=== PATIENT | male | born 1965 | race Caucasian/White ===

== ENCOUNTER → 2017-03-04 | Outpatient (CLI) | payer BC, MEDICARE, OTHER ==
[~2017-03-04] MED LIST: ACEDIPPM PO; AMPDEX15CR PO; AMPDEX5 PO; ARIP10; ARIP20 PO; ARIP30 PO; ASPI325 PO; ASPI81CH PO; BRINTELLIX20 MG; BRINTELLIX20 MG PO; BUSP15 PO; CIME400 PO; CITA20 PO; CLIN300 PO; CLON1 PO; CYCL10 PO; DAYQUIL; DICL25ER PO; DOXE10 PO; HYDACE5 PO; HYDPAM25; IBUP800 PO; IBUPROFEN; KETO10 PO; LACT10SY PO; LIDO700A20 TOP; METHYLPHENIDATE20 M1; METHYLPHENIDATE20 M1 PO; MULVITMIND PO; NAPR220 PO; Naprosyn500 MG PO; OMEP40CA12 PO; ONDA4 PO; OXYC5 PO; PRAZ2 PO; PROM25 PO; PROP10 PO; Pepcid40 MG PO; RIFA550T2; RIFA550T2 PO; RXCYCL10 PO; RXHYDACE PO; SUCR1 PO; Seroquel400 MG PO; TEMA15 PO; TOPI100 PO; TRAM50 PO; TRAZ100; TRAZ100 PO; Venlafaxine HCl75 MG PO; Zofran Odt4 MG SL; [UNRECOGNIZED DRUG - OTHER] PO; [UNRECOGNIZED DRUG - REMARK]
== END | disposition home or self-care (01) ==
LOC: LAB 14:21
PROVIDERS: Physician Assistant
DX: R19.7 Diarrhea, unspecified (principal)
CPT/HCPCS: 87015; 87045; 87046; 87177; 87205; 87209; 87328; 87329; 87899

== ENCOUNTER 2017-03-11 15:00 | Emergency (ER) | payer BC, MEDICARE, OTHER ==
[~2017-03-11] VITALS: Ht 188 cm; Wt 108.9 kg
[~2017-03-11 15:00] MED LIST changes: -AMPDEX15CR PO; -ARIP20 PO; -BRINTELLIX20 MG; -LIDO700A20 TOP; -Naprosyn500 MG PO; -PROP10 PO; -TRAZ100 PO; -Venlafaxine HCl75 MG PO; -[UNRECOGNIZED DRUG - OTHER] PO
[2017-03-11 15:33] LABS: BASOPHILS ABSOLUTE AUTO 0.03 K/mm3 (0.00-0.23); BASOPHILS PERCENT AUTO 0 % (0-2); EOSINOPHILS ABSOLUTE AUTO 0.03 K/mm3 (0.00-0.68); EOSINOPHILS PERCENT AUTO 0 % (0-6); Hematocrit 46.2 % (37.0-53.0); Hemoglobin 15.6 g/dL (13.5-17.5); IMMATURE GRAN ABSOLUTE AUTO 0.07 K/mm3 (0.00-0.10); IMMATURE GRAN PERCENT AUTO 1 % (0-1); LYMPHOCYTES ABSOLUTE AUTO 2.72 K/mm3 (0.84-5.20); LYMPHOCYTES PERCENT AUTO 24 % (21-46); MONOCYTES ABSOLUTE AUTO 0.48 K/mm3 (0.16-1.47); MONOCYTES PERCENT AUTO 4 % (4-13); Mean Corpuscular HGB 27.7 pg (26.0-34.0); Mean Corpuscular HGB Conc 33.8 g/dL (31.5-36.5); Mean Corpuscular Volume 82 fL (80-100); Mean Platelet Volume 9.1 fL (9.1-12.4); NEUTROPHILS ABSOLUTE AUTO 8.13 K/mm3 (1.96-9.15); NEUTROPHILS PERCENT AUTO 71 % (41-73); Platelet Count 271 K/mm3 (150-400); RDW Standard Deviation 41.6 fL (35.1-46.3); Red Blood Cell Count 5.63 M/mm3 (4.30-5.90); White Blood Cell Count 11.46 K/mm3 (4.00-11.30)
[2017-03-11 15:53] LABS: Alanine Aminotransfer (ALT/SGP 85 U/L (12-78); Albumin, Blood 3.7 g/dL (3.4-5.0); Albumin/Globulin Ratio 0.9 (0.8-1.8); Alk Phos 126 U/L (50-136); Anion Gap 9 mmol/L (6-16); Aspartate Aminotrans (AST/SGOT 29 U/L (12-37); Bilirubin, Total 0.3 mg/dL (0.1-1.0); Blood Urea Nitrogen 10 mg/dL (8-24); Bun/Creatinine Ratio 15.3 (12.0-20.0); CO2, Blood 24 mmol/L (21-32); Calcium, Blood 8.3 mg/dL (8.5-10.1); Chloride, Blood 105 mmol/L (98-108); Creatinine, Blood 0.66 mg/dL (0.60-1.20); Globulin, Blood 4.2 g/dL (2.2-4.0); Glomerular Filtration Rate >60 (60-); Glucose, Blood 233 mg/dL (70-99); Potassium, Blood 3.3 mmol/L (3.5-5.5); Sodium, Blood 138 mmol/L (136-145); Total Protein, Blood 7.9 g/dL (6.4-8.2); Troponin I <0.015 ng/mL (0.000-0.040)
[2017-12-11] MEDS ORDERED: ARIP20 PO (10:53)
[2017-12-11] MEDS ORDERED: TRAZ100 PO (10:54)
[2018-02-05] MEDS ORDERED: AMPDEX15CR PO (13:47)
[2018-02-05] MEDS ORDERED: BRINTELLIX20 MG PO (13:47)
[2018-02-05] MEDS ORDERED: RIFA550T2 PO (13:48)
[2018-02-05] MEDS ORDERED: [UNRECOGNIZED DRUG - OTHER] PO (13:50)
== END 2017-03-11 17:18 | disposition home or self-care (01) ==
LOC: ER 15:00
PROVIDERS: Psychiatry & Neurology Psychiatry
DX: R07.89 Other chest pain (principal); K21.9 Gastro-esophageal reflux disease without esophagitis; F41.8 Other specified anxiety disorders; Z79.899 Other long term (current) drug therapy; Z86.19 Personal history of other infectious and parasitic diseases
CPT/HCPCS: 36415; 71046; 80053; 84484; 85025; 93005; 93010; 99284

== ENCOUNTER 2017-03-26 16:32 | Inpatient (IN) | payer BC, MEDICARE, OTHER ==
[~2017-03-26] VITALS: Ht 188 cm; Wt 108.4 kg
[2017-03-26 17:15] LABS: BASOPHILS ABSOLUTE AUTO 0.09 K/mm3 (0.00-0.23); BASOPHILS PERCENT AUTO 1 % (0-2); EOSINOPHILS ABSOLUTE AUTO 0.13 K/mm3 (0.00-0.68); EOSINOPHILS PERCENT AUTO 1 % (0-6); Hematocrit 50.8 % (37.0-53.0); Hemoglobin 16.5 g/dL (13.5-17.5); IMMATURE GRAN ABSOLUTE AUTO 0.05 K/mm3 (0.00-0.10); IMMATURE GRAN PERCENT AUTO 1 % (0-1); LYMPHOCYTES ABSOLUTE AUTO 2.74 K/mm3 (0.84-5.20); LYMPHOCYTES PERCENT AUTO 30 % (21-46); MONOCYTES ABSOLUTE AUTO 0.65 K/mm3 (0.16-1.47); MONOCYTES PERCENT AUTO 7 % (4-13); Mean Corpuscular HGB 27.3 pg (26.0-34.0); Mean Corpuscular HGB Conc 32.5 g/dL (31.5-36.5); Mean Corpuscular Volume 84 fL (80-100); Mean Platelet Volume 8.5 fL (9.1-12.4); NEUTROPHILS ABSOLUTE AUTO 5.63 K/mm3 (1.96-9.15); NEUTROPHILS PERCENT AUTO 61 % (41-73); Platelet Count 342 K/mm3 (150-400); RDW Coefficient Variation 13.9 % (11.7-14.2); RDW Standard Deviation 42.7 fL (35.1-46.3); Red Blood Cell Count 6.04 M/mm3 (4.30-5.90); White Blood Cell Count 9.29 K/mm3 (4.00-11.30)
[2017-03-26 17:38] LABS: Alanine Aminotransfer (ALT/SGP 64 U/L (12-78); Albumin, Blood 3.9 g/dL (3.4-5.0); Albumin/Globulin Ratio 0.9 (0.8-1.8); Alk Phos 141 U/L (50-136); Anion Gap 8 mmol/L (6-16); Aspartate Aminotrans (AST/SGOT 17 U/L (12-37); Bilirubin, Total 0.2 mg/dL (0.1-1.0); Blood Urea Nitrogen 8 mg/dL (8-24); Bun/Creatinine Ratio 9.5 (12.0-20.0); CO2, Blood 25 mmol/L (21-32); Chloride, Blood 109 mmol/L (98-108); Creatinine, Blood 0.84 mg/dL (0.60-1.20); Ethanol (Alcohol), Blood, Med 239 mg/dL; Globulin, Blood 4.3 g/dL (2.2-4.0); Glomerular Filtration Rate >60 (60-); Glucose, Blood 250 mg/dL (70-99); Potassium, Blood 3.6 mmol/L (3.5-5.5); Salicylate <1.7 mg/dL (2.8-20.0); Sodium, Blood 142 mmol/L (136-145); Thyroxine (T4) 9.1 ug/dL (4.5-12.1); Total Protein, Blood 8.2 g/dL (6.4-8.2)
[2017-03-26 17:42] LABS: Thyroid Stimulating Hormone 0.907 uIU/mL (0.360-4.800)
[2017-03-26 17:43] LABS: Acetaminophen, Random <2.0 ug/mL (10.0-30.0)
[2017-03-26 17:44] LABS: Source, Urine Clean Catch
[2017-03-26 17:52] LABS: Bilirubin, Urine Neg (Neg); Blood, Urine Neg (Neg); Glucose Qualitative, Urine 2+ (Neg); Ketones, Urine Neg (Neg); Leukocyte Esterase, Urine Neg (Neg); Nitrite, Urine Neg (Neg); Protein, Urine Neg (Neg); Specific Gravity, Urine 1.005 (1.003-1.022); Urobilinogen, Urine NORM (Normal); pH, Urine 6.5 (5.0-8.0)
[2017-03-26 18:03] LABS: Appearance, Urine Clear (Clear); Color, Urine No Color (P-Yellow)
[2017-03-26 18:17] LABS: U Amphetamine Screen Not Detected; U Barbituate Screen Not Detected; U Benzodiazapine Screen Not Detected; U Buprenorphine Screen Not Detected; U Cannabinoids Screen Not Detected; U Cocaine Screen Not Detected; U Methadone Screen Not Detected; U Methamphetamine Screen Not Detected; U Opiates Screen Not Detected; U Oxycodone Screen Not Detected; U Phencyclidine Screen Not Detected; U Propoxyphene Screen Not Detected
[2017-03-27 04:02] LABS: BASOPHILS ABSOLUTE AUTO 0.07 K/mm3 (0.00-0.23); BASOPHILS PERCENT AUTO 1 % (0-2); EOSINOPHILS ABSOLUTE AUTO 0.09 K/mm3 (0.00-0.68); EOSINOPHILS PERCENT AUTO 1 % (0-6); Hematocrit 46.2 % (37.0-53.0); Hemoglobin 15.1 g/dL (13.5-17.5); IMMATURE GRAN ABSOLUTE AUTO 0.06 K/mm3 (0.00-0.10); IMMATURE GRAN PERCENT AUTO 1 % (0-1); LYMPHOCYTES ABSOLUTE AUTO 2.31 K/mm3 (0.84-5.20); LYMPHOCYTES PERCENT AUTO 21 % (21-46); MONOCYTES ABSOLUTE AUTO 0.46 K/mm3 (0.16-1.47); MONOCYTES PERCENT AUTO 4 % (4-13); Mean Corpuscular HGB 27.5 pg (26.0-34.0); Mean Corpuscular HGB Conc 32.7 g/dL (31.5-36.5); Mean Corpuscular Volume 84 fL (80-100); Mean Platelet Volume 8.8 fL (9.1-12.4); NEUTROPHILS ABSOLUTE AUTO 8.04 K/mm3 (1.96-9.15); NEUTROPHILS PERCENT AUTO 73 % (41-73); Platelet Count 316 K/mm3 (150-400); RDW Coefficient Variation 13.8 % (11.7-14.2); RDW Standard Deviation 42.5 fL (35.1-46.3); White Blood Cell Count 11.03 K/mm3 (4.00-11.30)
[2017-03-27 04:16] LABS: International Normalized Ratio 1.06
[2017-03-27 04:24] LABS: Alanine Aminotransfer (ALT/SGP 51 U/L (12-78); Albumin, Blood 3.4 g/dL (3.4-5.0); Albumin/Globulin Ratio 0.9 (0.8-1.8); Alk Phos 122 U/L (50-136); Anion Gap 9 mmol/L (6-16); Aspartate Aminotrans (AST/SGOT 15 U/L (12-37); Bilirubin, Total 0.2 mg/dL (0.1-1.0); Blood Urea Nitrogen 6 mg/dL (8-24); Bun/Creatinine Ratio 7.6 (12.0-20.0); CO2, Blood 24 mmol/L (21-32); Calcium, Blood 8.3 mg/dL (8.5-10.1); Chloride, Blood 113 mmol/L (98-108); Creatinine, Blood 0.79 mg/dL (0.60-1.20); Globulin, Blood 3.7 g/dL (2.2-4.0); Glomerular Filtration Rate >60 (60-); Glucose, Blood 83 mg/dL (70-99); Potassium, Blood 3.8 mmol/L (3.5-5.5); Sodium, Blood 146 mmol/L (136-145); Total Protein, Blood 7.1 g/dL (6.4-8.2)
[2017-12-11] MEDS ORDERED: ARIP20 PO (10:53)
[2017-12-11] MEDS ORDERED: TRAZ100 PO (10:54)
[2018-02-05] MEDS ORDERED: BRINTELLIX20 MG PO (13:47)
[2018-02-05] MEDS ORDERED: AMPDEX15CR PO (13:47)
[2018-02-05] MEDS ORDERED: RIFA550T2 PO (13:48)
[2018-02-05] MEDS ORDERED: [UNRECOGNIZED DRUG - OTHER] PO (13:50)
== END 2017-03-28 22:00 | DRG 918 ==
LOC: ER 16:32 → ICUW 18:33
PROVIDERS: Emergency Medicine; Internal Medicine
DX: T45.0X2A Poisoning by antiallergic and antiemetic drugs, intentional self-harm, initial encounter (principal); F31.5 Bipolar disorder, current episode depressed, severe, with psychotic features; K74.60 Unspecified cirrhosis of liver; F40.10 Social phobia, unspecified; K21.9 Gastro-esophageal reflux disease without esophagitis; R33.9 Retention of urine, unspecified; K27.9 Peptic ulcer, site unspecified, unspecified as acute or chronic, without hemorrhage or perforation; B19.20 Unspecified viral hepatitis C without hepatic coma; Z91.5 Personal history of self-harm; Z79.899 Other long term (current) drug therapy
CPT/HCPCS: 36415; 80053; 81003; 84436; 84443; 85025; 85610; 93005; 93010; 96372; 99285; C9113; G0480; J1650; J2405; J3411; J7030; J7120

== ENCOUNTER 2017-07-12 18:26 | Observation (INO) | payer MEDICARE, OTHER ==
[~2017-07-12] VITALS: Ht 188 cm; Wt 113.4 kg
[2017-07-12 19:15] LABS: BASOPHILS ABSOLUTE AUTO 0.08 K/mm3 (0.00-0.23); BASOPHILS PERCENT AUTO 1 % (0-2); EOSINOPHILS ABSOLUTE AUTO 0.15 K/mm3 (0.00-0.68); EOSINOPHILS PERCENT AUTO 2 % (0-6); Hematocrit 45.6 % (37.0-53.0); Hemoglobin 15.3 g/dL (13.5-17.5); IMMATURE GRAN ABSOLUTE AUTO 0.04 K/mm3 (0.00-0.10); IMMATURE GRAN PERCENT AUTO 0 % (0-1); LYMPHOCYTES ABSOLUTE AUTO 3.27 K/mm3 (0.84-5.20); LYMPHOCYTES PERCENT AUTO 33 % (21-46); MONOCYTES ABSOLUTE AUTO 0.64 K/mm3 (0.16-1.47); MONOCYTES PERCENT AUTO 7 % (4-13); Mean Corpuscular HGB 27.9 pg (26.0-34.0); Mean Corpuscular HGB Conc 33.6 g/dL (31.5-36.5); Mean Corpuscular Volume 83 fL (80-100); Mean Platelet Volume 9.1 fL (9.1-12.4); NEUTROPHILS PERCENT AUTO 58 % (41-73); Platelet Count 278 K/mm3 (150-400); RDW Coefficient Variation 13.6 % (11.7-14.2); RDW Standard Deviation 41.5 fL (35.1-46.3); Red Blood Cell Count 5.48 M/mm3 (4.30-5.90); White Blood Cell Count 9.88 K/mm3 (4.00-11.30)
[2017-07-12 19:36] LABS: Alanine Aminotransfer (ALT/SGP 61 U/L (12-78); Albumin, Blood 3.8 g/dL (3.4-5.0); Alk Phos 104 U/L (50-136); Anion Gap 13 mmol/L (6-16); Aspartate Aminotrans (AST/SGOT 27 U/L (12-37); Bilirubin, Total 0.3 mg/dL (0.1-1.0); Blood Urea Nitrogen 8 mg/dL (8-24); Bun/Creatinine Ratio 10.4 (12.0-20.0); CO2, Blood 21 mmol/L (21-32); Calcium, Blood 8.7 mg/dL (8.5-10.1); Chloride, Blood 106 mmol/L (98-108); Creatinine, Blood 0.77 mg/dL (0.60-1.20); Ethanol (Alcohol), Blood, Med 202 mg/dL; Globulin, Blood 3.7 g/dL (2.2-4.0); Glomerular Filtration Rate >60 (60-); Glucose, Blood 163 mg/dL (70-99); Potassium, Blood 3.7 mmol/L (3.5-5.5); Salicylate <1.7 mg/dL (2.8-20.0); Sodium, Blood 140 mmol/L (136-145); Total Protein, Blood 7.5 g/dL (6.4-8.2)
[2017-07-12 19:41] LABS: Acetaminophen, Random <2.0 ug/mL (10.0-30.0)
[2017-07-12 19:44] LABS: Source, Urine Voided
[2017-07-12 19:54] LABS: Bilirubin, Urine Neg (Neg); Blood, Urine Neg (Neg); Glucose Qualitative, Urine Neg (Neg); Ketones, Urine Neg (Neg); Leukocyte Esterase, Urine Neg (Neg); Nitrite, Urine Neg (Neg); Protein, Urine Neg (Neg); Specific Gravity, Urine 1.015 (1.003-1.022); Urobilinogen, Urine NORM (Normal)
[2017-07-12 20:08] LABS: U Amphetamine Screen Not Detected; U Barbituate Screen Not Detected; U Benzodiazapine Screen Not Detected; U Buprenorphine Screen Not Detected; U Cannabinoids Screen Not Detected; U Cocaine Screen Not Detected; U Methadone Screen Not Detected; U Methamphetamine Screen Not Detected; U Opiates Screen Not Detected; U Oxycodone Screen Not Detected; U Phencyclidine Screen Not Detected; U Propoxyphene Screen Not Detected
[2017-07-12 20:09] LABS: Appearance, Urine Clear (Clear); Color, Urine Pale Yellow (P-Yellow)
== END 2017-07-13 15:34 | disposition home or self-care (01) ==
LOC: ER 18:26 → EOR 18:27
PROVIDERS: Emergency Medicine
DX: R45.851 Suicidal ideations (principal); F32.9 Major depressive disorder, single episode, unspecified; K86.89 Other specified diseases of pancreas; K21.9 Gastro-esophageal reflux disease without esophagitis; K74.60 Unspecified cirrhosis of liver; Z79.899 Other long term (current) drug therapy
CPT/HCPCS: 80053; 81003; 84443; 85025; 99285; G0378; G0480; Q3014

== ENCOUNTER 2017-07-15 20:14 | Observation (INO) | payer MEDICARE, OTHER ==
[~2017-07-15] VITALS: Ht 188 cm; Wt 113.4 kg
[2017-07-15 21:05] LABS: BASOPHILS ABSOLUTE AUTO 0.11 K/mm3 (0.00-0.23); BASOPHILS PERCENT AUTO 1 % (0-2); EOSINOPHILS ABSOLUTE AUTO 0.27 K/mm3 (0.00-0.68); EOSINOPHILS PERCENT AUTO 3 % (0-6); Hematocrit 47.2 % (37.0-53.0); Hemoglobin 15.6 g/dL (13.5-17.5); IMMATURE GRAN ABSOLUTE AUTO 0.05 K/mm3 (0.00-0.10); IMMATURE GRAN PERCENT AUTO 1 % (0-1); LYMPHOCYTES ABSOLUTE AUTO 3.63 K/mm3 (0.84-5.20); LYMPHOCYTES PERCENT AUTO 39 % (21-46); MONOCYTES ABSOLUTE AUTO 0.67 K/mm3 (0.16-1.47); MONOCYTES PERCENT AUTO 7 % (4-13); Mean Corpuscular HGB 27.6 pg (26.0-34.0); Mean Corpuscular HGB Conc 33.1 g/dL (31.5-36.5); Mean Corpuscular Volume 84 fL (80-100); Mean Platelet Volume 9.1 fL (9.1-12.4); NEUTROPHILS ABSOLUTE AUTO 4.61 K/mm3 (1.96-9.15); NEUTROPHILS PERCENT AUTO 49 % (41-73); Platelet Count 280 K/mm3 (150-400); RDW Coefficient Variation 13.7 % (11.7-14.2); RDW Standard Deviation 41.6 fL (35.1-46.3); Red Blood Cell Count 5.65 M/mm3 (4.30-5.90); White Blood Cell Count 9.34 K/mm3 (4.00-11.30)
[2017-07-15 21:05] LABS: Source, Urine Clean Catch
[2017-07-15 21:08] LABS: Bilirubin, Urine Neg (Neg); Blood, Urine Neg (Neg); Glucose Qualitative, Urine Neg (Neg); Ketones, Urine Neg (Neg); Leukocyte Esterase, Urine Neg (Neg); Nitrite, Urine Neg (Neg); Protein, Urine Neg (Neg); Urobilinogen, Urine NORM (Normal)
[2017-07-15 21:14] LABS: Appearance, Urine Clear (Clear); Color, Urine Pale Yellow (P-Yellow)
[2017-07-15 21:24] LABS: U Amphetamine Screen Not Detected; U Barbituate Screen Not Detected; U Benzodiazapine Screen Not Detected; U Buprenorphine Screen Not Detected; U Cannabinoids Screen Not Detected; U Cocaine Screen Not Detected; U Methadone Screen Not Detected; U Methamphetamine Screen Not Detected; U Opiates Screen Not Detected; U Oxycodone Screen Not Detected; U Phencyclidine Screen Not Detected; U Propoxyphene Screen Not Detected
[2017-07-15 21:28] LABS: Alanine Aminotransfer (ALT/SGP 52 U/L (12-78); Albumin, Blood 3.6 g/dL (3.4-5.0); Albumin/Globulin Ratio 0.9 (0.8-1.8); Alk Phos 105 U/L (50-136); Anion Gap 9 mmol/L (6-16); Aspartate Aminotrans (AST/SGOT 26 U/L (12-37); Bilirubin, Total 0.1 mg/dL (0.1-1.0); Blood Urea Nitrogen 6 mg/dL (8-24); Bun/Creatinine Ratio 9.1 (12.0-20.0); CO2, Blood 23 mmol/L (21-32); Calcium, Blood 8.3 mg/dL (8.5-10.1); Chloride, Blood 113 mmol/L (98-108); Creatinine, Blood 0.66 mg/dL (0.60-1.20); Ethanol (Alcohol), Blood, Med 222 mg/dL; Globulin, Blood 3.9 g/dL (2.2-4.0); Glomerular Filtration Rate >60 (60-); Glucose, Blood 96 mg/dL (70-99); Salicylate <1.7 mg/dL (2.8-20.0); Sodium, Blood 145 mmol/L (136-145); Total Protein, Blood 7.5 g/dL (6.4-8.2)
[2017-07-15 21:33] LABS: Acetaminophen, Random <2.0 ug/mL (10.0-30.0)
[2017-07-16] MEDS ORDERED: Venlafaxine HCl75 MG PO (06:40)
[2017-07-16] MEDS ORDERED: PROP10 PO (07:02)
== END 2017-07-16 13:03 | disposition home or self-care (01) ==
LOC: ER 20:14 → EOR 20:15
PROVIDERS: Emergency Medicine
DX: R45.851 Suicidal ideations (principal); F32.9 Major depressive disorder, single episode, unspecified; F10.129 Alcohol abuse with intoxication, unspecified; K21.9 Gastro-esophageal reflux disease without esophagitis; Z79.899 Other long term (current) drug therapy; Y90.7 Blood alcohol level of 200-239 mg/100 ml
CPT/HCPCS: 36415; 80053; 81003; 84443; 85025; 99285; G0378; G0480; Q3014

== ENCOUNTER 2017-08-15 16:48 | Emergency (ER) | payer MEDICARE ==
[~2017-08-15] VITALS: Ht 188 cm; Wt 113.4 kg
[~2017-08-15 16:48] MED LIST changes: +PROP10 PO; +Venlafaxine HCl75 MG PO
[2017-08-15] MEDS ORDERED: LIDO700A20 TOP (18:43)
[2017-08-15] MEDS ORDERED: CYCL10 PO (18:43)
[2017-08-15] MEDS ORDERED: Naprosyn500 MG PO (18:43)
== END 2017-08-15 19:10 | disposition home or self-care (01) ==
LOC: ER 16:48
DX: M54.5 Low back pain (principal); Z79.899 Other long term (current) drug therapy; K21.9 Gastro-esophageal reflux disease without esophagitis
CPT/HCPCS: 96372; 99283; J1885

== ENCOUNTER 2017-10-02 18:18 | Observation (INO) | payer MEDICARE ==
[~2017-10-02] VITALS: Ht 188 cm; Wt 127.0 kg
[~2017-10-02 18:18] MED LIST changes: +LIDO700A20 TOP; +Naprosyn500 MG PO
[2017-10-02 19:11] LABS: BASOPHILS ABSOLUTE AUTO 0.11 K/mm3 (0.00-0.23); BASOPHILS PERCENT AUTO 1 % (0-2); EOSINOPHILS ABSOLUTE AUTO 0.38 K/mm3 (0.00-0.68); EOSINOPHILS PERCENT AUTO 3 % (0-6); Hematocrit 46.6 % (37.0-53.0); Hemoglobin 15.2 g/dL (13.5-17.5); IMMATURE GRAN ABSOLUTE AUTO 0.06 K/mm3 (0.00-0.10); IMMATURE GRAN PERCENT AUTO 1 % (0-1); LYMPHOCYTES ABSOLUTE AUTO 4.11 K/mm3 (0.84-5.20); LYMPHOCYTES PERCENT AUTO 36 % (21-46); MONOCYTES ABSOLUTE AUTO 0.76 K/mm3 (0.16-1.47); MONOCYTES PERCENT AUTO 7 % (4-13); Mean Corpuscular HGB 27.5 pg (26.0-34.0); Mean Corpuscular HGB Conc 32.6 g/dL (31.5-36.5); Mean Corpuscular Volume 84 fL (80-100); Mean Platelet Volume 8.4 fL (9.1-12.4); NEUTROPHILS ABSOLUTE AUTO 6.12 K/mm3 (1.96-9.15); NEUTROPHILS PERCENT AUTO 53 % (41-73); Platelet Count 290 K/mm3 (150-400); RDW Coefficient Variation 14.5 % (11.7-14.2); RDW Standard Deviation 44.4 fL (35.1-46.3); Red Blood Cell Count 5.52 M/mm3 (4.30-5.90); White Blood Cell Count 11.54 K/mm3 (4.00-11.30)
[2017-10-02 19:33] LABS: Ethanol (Alcohol), Blood, Med 280 mg/dL; Salicylate <1.7 mg/dL (2.8-20.0)
[2017-10-02 19:39] LABS: Alanine Aminotransfer (ALT/SGP 49 U/L (12-78); Albumin, Blood 3.5 g/dL (3.4-5.0); Albumin/Globulin Ratio 0.9 (0.8-1.8); Alk Phos 103 U/L (50-136); Anion Gap 11 mmol/L (6-16); Aspartate Aminotrans (AST/SGOT 34 U/L (12-37); Bilirubin, Total 0.2 mg/dL (0.1-1.0); Blood Urea Nitrogen 9 mg/dL (8-24); Bun/Creatinine Ratio 10.7 (12.0-20.0); CO2, Blood 23 mmol/L (21-32); Calcium, Blood 8.3 mg/dL (8.5-10.1); Chloride, Blood 109 mmol/L (98-108); Creatinine, Blood 0.84 mg/dL (0.60-1.20); Globulin, Blood 4.1 g/dL (2.2-4.0); Glomerular Filtration Rate >60 (60-); Glucose, Blood 99 mg/dL (70-99); Potassium, Blood 3.3 mmol/L (3.5-5.5); Sodium, Blood 143 mmol/L (136-145); Total Protein, Blood 7.6 g/dL (6.4-8.2)
[2017-10-02 19:53] LABS: Acetaminophen, Random <2.0 ug/mL (10.0-30.0)
[2017-10-02 20:08] LABS: Source, Urine Catheter
[2017-10-02 20:18] LABS: Bilirubin, Urine Neg (Neg); Blood, Urine Neg (Neg); Glucose Qualitative, Urine Neg (Neg); Ketones, Urine Neg (Neg); Leukocyte Esterase, Urine Neg (Neg); Nitrite, Urine Neg (Neg); Protein, Urine Neg (Neg); Specific Gravity, Urine 1.005 (1.003-1.022); Urobilinogen, Urine NORM (Normal)
[2017-10-02 20:25] LABS: Appearance, Urine Clear (Clear); Color, Urine No Color (P-Yellow)
[2017-10-02 20:30] LABS: U Amphetamine Screen Not Detected; U Barbituate Screen Not Detected; U Benzodiazapine Screen Not Detected; U Buprenorphine Screen Not Detected; U Cannabinoids Screen Not Detected; U Cocaine Screen Not Detected; U Methadone Screen Not Detected; U Methamphetamine Screen Not Detected; U Opiates Screen Not Detected; U Oxycodone Screen Not Detected; U Phencyclidine Screen Not Detected; U Propoxyphene Screen Not Detected
[2017-10-02] MEDS ORDERED: Venlafaxine HCl75 MG PO (21:46)
[2017-10-02] MEDS ORDERED: AMPDEX5 PO (21:56)
[2017-10-02] MEDS ORDERED: BRINTELLIX20 MG (22:02)
== END 2017-10-03 11:55 | disposition home or self-care (01) ==
LOC: ER 18:18 → EOR 18:19
PROVIDERS: Emergency Medicine
DX: R45.851 Suicidal ideations (principal); F31.81 Bipolar II disorder; F10.220 Alcohol dependence with intoxication, uncomplicated; K21.9 Gastro-esophageal reflux disease without esophagitis; K74.60 Unspecified cirrhosis of liver; Z79.899 Other long term (current) drug therapy; Y90.8 Blood alcohol level of 240 mg/100 ml or more
CPT/HCPCS: 36415; 80053; 81003; 84443; 85025; 99285; G0378; G0480; J7030; Q3014

== ENCOUNTER 2018-08-18 13:16 | Emergency (ER) | payer MEDICARE ==
[~2018-08-18] VITALS: Ht 188 cm; Wt 119.8 kg
[~2018-08-18 13:16] MED LIST changes: +AMPDEX15CR PO; +ARIP20 PO; +BRINTELLIX20 MG; +TRAZ100 PO; +[UNRECOGNIZED DRUG - OTHER] PO
[2018-08-18 14:05] LABS: BASOPHILS ABSOLUTE AUTO 0.09 K/mm3 (0.00-0.23); BASOPHILS PERCENT AUTO 1 % (0-2); EOSINOPHILS ABSOLUTE AUTO 0.12 K/mm3 (0.00-0.68); EOSINOPHILS PERCENT AUTO 1 % (0-6); Hematocrit 50.1 % (37.0-53.0); Hemoglobin 16.6 g/dL (13.5-17.5); IMMATURE GRAN ABSOLUTE AUTO 0.06 K/mm3 (0.00-0.10); IMMATURE GRAN PERCENT AUTO 1 % (0-1); LYMPHOCYTES ABSOLUTE AUTO 1.82 K/mm3 (0.84-5.20); LYMPHOCYTES PERCENT AUTO 20 % (21-46); MONOCYTES PERCENT AUTO 9 % (4-13); Mean Corpuscular HGB 28.2 pg (26.0-34.0); Mean Corpuscular HGB Conc 33.1 g/dL (31.5-36.5); Mean Corpuscular Volume 85 fL (80-100); Mean Platelet Volume 8.6 fL (9.1-12.4); NEUTROPHILS ABSOLUTE AUTO 6.41 K/mm3 (1.96-9.15); NEUTROPHILS PERCENT AUTO 69 % (41-73); Platelet Count 188 K/mm3 (150-400); RDW Coefficient Variation 15.7 % (11.7-14.2); RDW Standard Deviation 46.6 fL (35.1-46.3); Red Blood Cell Count 5.89 M/mm3 (4.30-5.90)
[2018-08-18 14:26] LABS: Alanine Aminotransfer (ALT/SGP 88 U/L (12-78); Albumin, Blood 3.6 g/dL (3.4-5.0); Albumin/Globulin Ratio 0.8 (0.8-1.8); Alk Phos 100 U/L (50-136); Anion Gap 8 mmol/L (6-16); Aspartate Aminotrans (AST/SGOT 80 U/L (12-37); Blood Urea Nitrogen 13 mg/dL (8-24); Bun/Creatinine Ratio 15.1 (12.0-20.0); CO2, Blood 25 mmol/L (21-32); Calcium, Blood 8.8 mg/dL (8.5-10.1); Chloride, Blood 104 mmol/L (98-108); Creatinine, Blood 0.86 mg/dL (0.60-1.20); Ethanol (Alcohol), Blood, Med <3 mg/dL; Globulin, Blood 4.5 g/dL (2.2-4.0); Glomerular Filtration Rate >60 (60-); Glucose, Blood 110 mg/dL (70-99); Potassium, Blood 3.7 mmol/L (3.5-5.5); Sodium, Blood 137 mmol/L (136-145); Total Protein, Blood 8.1 g/dL (6.4-8.2); Troponin I <0.015 ng/mL (0.000-0.040)
[2018-08-18] MEDS ORDERED: CHLO25 PO (15:06)
== END 2018-08-18 15:55 | disposition home or self-care (01) ==
LOC: ER 13:16
PROVIDERS: Physician Assistant
DX: R07.9 Chest pain, unspecified (principal); F10.239 Alcohol dependence with withdrawal, unspecified; K21.9 Gastro-esophageal reflux disease without esophagitis; F31.9 Bipolar disorder, unspecified; F90.9 Attention-deficit hyperactivity disorder, unspecified type
CPT/HCPCS: 36415; 71046; 80053; 83880; 84484; 85025; 93005; 93010; 96361; 96374; 96375; 99285-25; G0480; J1170; J2060; J7030

== ENCOUNTER 2019-01-09 16:28 | Emergency (ER) | payer MEDICARE ==
[~2019-01-09] VITALS: Ht 188 cm; Wt 113.4 kg
[~2019-01-09 16:28] MED LIST changes: +CHLO25 PO; -TRAZ100 PO; +TRAZ150T57 PO
[2019-01-09 17:11] LABS: Source, Urine Clean Catch
[2019-01-09 17:19] LABS: BASOPHILS ABSOLUTE AUTO 0.17 K/mm3 (0.00-0.23); BASOPHILS PERCENT AUTO 2 % (0-2); EOSINOPHILS ABSOLUTE AUTO 0.21 K/mm3 (0.00-0.68); EOSINOPHILS PERCENT AUTO 3 % (0-6); Hematocrit 53.4 % (37.0-53.0); Hemoglobin 17.3 g/dL (13.5-17.5); IMMATURE GRAN ABSOLUTE AUTO 0.02 K/mm3 (0.00-0.10); IMMATURE GRAN PERCENT AUTO 0 % (0-1); LYMPHOCYTES ABSOLUTE AUTO 3.02 K/mm3 (0.84-5.20); LYMPHOCYTES PERCENT AUTO 37 % (21-46); MONOCYTES ABSOLUTE AUTO 0.47 K/mm3 (0.16-1.47); MONOCYTES PERCENT AUTO 6 % (4-13); Mean Corpuscular HGB 28.6 pg (26.0-34.0); Mean Corpuscular HGB Conc 32.4 g/dL (31.5-36.5); Mean Corpuscular Volume 88 fL (80-100); Mean Platelet Volume 8.4 fL (9.1-12.4); NEUTROPHILS ABSOLUTE AUTO 4.19 K/mm3 (1.96-9.15); NEUTROPHILS PERCENT AUTO 52 % (41-73); Platelet Count 312 K/mm3 (150-400); RDW Coefficient Variation 14.7 % (11.7-14.2); RDW Standard Deviation 47.8 fL (35.1-46.3); Red Blood Cell Count 6.05 M/mm3 (4.30-5.90); White Blood Cell Count 8.08 K/mm3 (4.00-11.30)
[2019-01-09 17:22] LABS: Bilirubin, Urine Neg (Neg); Blood, Urine Neg (Neg); Glucose Qualitative, Urine Neg (Neg); Ketones, Urine Neg (Neg); Leukocyte Esterase, Urine Neg (Neg); Nitrite, Urine Neg (Neg); Protein, Urine Neg (Neg); Specific Gravity, Urine 1.005 (1.003-1.022); Urobilinogen, Urine NORM (Normal)
[2019-01-09 17:34] LABS: Color, Urine Pale Yellow (P-Yellow)
[2019-01-09 17:37] LABS: Appearance, Urine Clear (Clear)
[2019-01-09 17:40] LABS: U Amphetamine Screen Not Detected; U Barbituate Screen Not Detected; U Benzodiazapine Screen DETECTED; U Buprenorphine Screen Not Detected; U Cannabinoids Screen Not Detected; U Cocaine Screen Not Detected; U Methadone Screen Not Detected; U Methamphetamine Screen Not Detected; U Opiates Screen Not Detected; U Oxycodone Screen Not Detected; U Phencyclidine Screen Not Detected; U Propoxyphene Screen Not Detected
[2019-01-09 17:56] LABS: Alanine Aminotransfer (ALT/SGP 59 U/L (12-78); Albumin/Globulin Ratio 0.9 (0.8-1.8); Alk Phos 102 U/L (50-136); Anion Gap 11 mmol/L (6-16); Aspartate Aminotrans (AST/SGOT 31 U/L (12-37); Bilirubin, Total 0.3 mg/dL (0.1-1.0); Blood Urea Nitrogen 7 mg/dL (8-24); CO2, Blood 27 mmol/L (21-32); Calcium, Blood 9.1 mg/dL (8.5-10.1); Chloride, Blood 104 mmol/L (98-108); Globulin, Blood 4.6 g/dL (2.2-4.0); Glomerular Filtration Rate >60 (60-); Glucose, Blood 104 mg/dL (70-99); Potassium, Blood 3.9 mmol/L (3.5-5.5); Salicylate <1.7 mg/dL (2.8-20.0); Sodium, Blood 142 mmol/L (136-145); Thyroxine (T4) 7.3 ug/dL (4.5-12.1); Total Protein, Blood 8.6 g/dL (6.4-8.2)
[2019-01-09 18:01] LABS: Acetaminophen, Random <2.0 ug/mL (10.0-30.0); Ethanol (Alcohol), Blood, Med 321 mg/dL
== END 2019-01-09 17:49 | disposition home or self-care (01) ==
LOC: ER 16:28
PROVIDERS: Emergency Medicine
DX: F31.9 Bipolar disorder, unspecified (principal); F10.20 Alcohol dependence, uncomplicated; K21.9 Gastro-esophageal reflux disease without esophagitis; F43.10 Post-traumatic stress disorder, unspecified; Z79.899 Other long term (current) drug therapy
CPT/HCPCS: 80053; 81003; 84436; 84443; 85025; 99284; G0480

== ENCOUNTER 2019-02-05 17:01 | Inpatient (IN) | payer MEDICARE ==
[~2019-02-05] VITALS: Ht 188 cm; Wt 114.4 kg
[2019-02-05 18:06] LABS: BASOPHILS ABSOLUTE AUTO 0.14 K/mm3 (0.00-0.23); BASOPHILS PERCENT AUTO 2 % (0-2); EOSINOPHILS ABSOLUTE AUTO 0.22 K/mm3 (0.00-0.68); EOSINOPHILS PERCENT AUTO 3 % (0-6); Hemoglobin 17.2 g/dL (13.5-17.5); IMMATURE GRAN ABSOLUTE AUTO 0.03 K/mm3 (0.00-0.10); IMMATURE GRAN PERCENT AUTO 0 % (0-1); LYMPHOCYTES PERCENT AUTO 38 % (21-46); MONOCYTES ABSOLUTE AUTO 0.49 K/mm3 (0.16-1.47); MONOCYTES PERCENT AUTO 7 % (4-13); Mean Corpuscular HGB Conc 33.1 g/dL (31.5-36.5); Mean Corpuscular Volume 88 fL (80-100); Mean Platelet Volume 8.1 fL (9.1-12.4); NEUTROPHILS PERCENT AUTO 50 % (41-73); Platelet Count 309 K/mm3 (150-400); RDW Coefficient Variation 14.4 % (11.7-14.2); Red Blood Cell Count 5.93 M/mm3 (4.30-5.90); White Blood Cell Count 7.58 K/mm3 (4.00-11.30)
[2019-02-05 18:17] LABS: Source, Urine Clean Catch
[2019-02-05 18:21] LABS: Bilirubin, Urine Neg (Neg); Blood, Urine Neg (Neg); Glucose Qualitative, Urine Neg (Neg); Ketones, Urine Neg (Neg); Leukocyte Esterase, Urine Neg (Neg); Nitrite, Urine Neg (Neg); Protein, Urine Neg (Neg); Specific Gravity, Urine 1.015 (1.003-1.022); Urobilinogen, Urine NORM (Normal)
[2019-02-05 18:31] LABS: Alanine Aminotransfer (ALT/SGP 67 U/L (12-78); Albumin, Blood 3.9 g/dL (3.4-5.0); Albumin/Globulin Ratio 0.9 (0.8-1.8); Alk Phos 106 U/L (50-136); Anion Gap 8 mmol/L (6-16); Aspartate Aminotrans (AST/SGOT 39 U/L (12-37); Bilirubin, Total 0.3 mg/dL (0.1-1.0); Blood Urea Nitrogen 8 mg/dL (8-24); Bun/Creatinine Ratio 11.8 (12.0-20.0); CO2, Blood 24 mmol/L (21-32); Calcium, Blood 8.8 mg/dL (8.5-10.1); Chloride, Blood 107 mmol/L (98-108); Creatinine, Blood 0.68 mg/dL (0.60-1.20); Globulin, Blood 4.3 g/dL (2.2-4.0); Glomerular Filtration Rate >60 (60-); Glucose, Blood 111 mg/dL (70-99); Potassium, Blood 3.9 mmol/L (3.5-5.5); Salicylate <1.7 mg/dL (2.8-20.0); Sodium, Blood 139 mmol/L (136-145); Total Protein, Blood 8.2 g/dL (6.4-8.2)
[2019-02-05 18:41] LABS: Appearance, Urine Clear (Clear); Color, Urine Yellow (P-Yellow)
[2019-02-05 18:51] LABS: Ethanol (Alcohol), Blood, Med 297 mg/dL
[2019-02-05 18:53] LABS: Acetaminophen, Random <2.0 ug/mL (10.0-30.0)
[2019-02-05 19:00] LABS: U Amphetamine Screen Not Detected; U Barbituate Screen Not Detected; U Benzodiazapine Screen DETECTED; U Buprenorphine Screen Not Detected; U Cannabinoids Screen Not Detected; U Cocaine Screen Not Detected; U Methadone Screen Not Detected; U Methamphetamine Screen Not Detected; U Opiates Screen Not Detected; U Oxycodone Screen Not Detected; U Phencyclidine Screen Not Detected; U Propoxyphene Screen Not Detected
[2019-02-05] MEDS ORDERED: Amphetamine Sal30 MG PO (19:25)
[2019-02-05] MEDS ORDERED: LACT10SY PO (20:04)
[2019-02-06 11:45] LABS: BASOPHILS ABSOLUTE AUTO 0.16 K/mm3 (0.00-0.23); BASOPHILS PERCENT AUTO 2 % (0-2); EOSINOPHILS ABSOLUTE AUTO 0.02 K/mm3 (0.00-0.68); EOSINOPHILS PERCENT AUTO 0 % (0-6); Hematocrit 50.4 % (37.0-53.0); Hemoglobin 16.7 g/dL (13.5-17.5); IMMATURE GRAN ABSOLUTE AUTO 0.04 K/mm3 (0.00-0.10); IMMATURE GRAN PERCENT AUTO 0 % (0-1); LYMPHOCYTES ABSOLUTE AUTO 1.55 K/mm3 (0.84-5.20); LYMPHOCYTES PERCENT AUTO 16 % (21-46); MONOCYTES ABSOLUTE AUTO 0.42 K/mm3 (0.16-1.47); MONOCYTES PERCENT AUTO 4 % (4-13); Mean Corpuscular HGB 28.9 pg (26.0-34.0); Mean Corpuscular HGB Conc 33.1 g/dL (31.5-36.5); Mean Corpuscular Volume 87 fL (80-100); Mean Platelet Volume 8.8 fL (9.1-12.4); NEUTROPHILS ABSOLUTE AUTO 7.45 K/mm3 (1.96-9.15); NEUTROPHILS PERCENT AUTO 77 % (41-73); Platelet Count 324 K/mm3 (150-400); RDW Coefficient Variation 14.6 % (11.7-14.2); RDW Standard Deviation 46.6 fL (35.1-46.3); Red Blood Cell Count 5.77 M/mm3 (4.30-5.90); White Blood Cell Count 9.64 K/mm3 (4.00-11.30)
[2019-02-06 11:56] LABS: Alanine Aminotransfer (ALT/SGP 61 U/L (12-78); Albumin, Blood 3.9 g/dL (3.4-5.0); Alk Phos 106 U/L (50-136); Anion Gap 10 mmol/L (6-16); Aspartate Aminotrans (AST/SGOT 36 U/L (12-37); Bilirubin, Total 0.5 mg/dL (0.1-1.0); Blood Urea Nitrogen 15 mg/dL (8-24); Bun/Creatinine Ratio 21.1 (12.0-20.0); CO2, Blood 25 mmol/L (21-32); Calcium, Blood 9.3 mg/dL (8.5-10.1); Chloride, Blood 104 mmol/L (98-108); Creatinine, Blood 0.71 mg/dL (0.60-1.20); Globulin, Blood 3.9 g/dL (2.2-4.0); Glomerular Filtration Rate >60 (60-); Glucose, Blood 152 mg/dL (70-99); Potassium, Blood 4.4 mmol/L (3.5-5.5); Sodium, Blood 139 mmol/L (136-145); Total Protein, Blood 7.8 g/dL (6.4-8.2)
[2019-02-06 12:01] LABS: Magnesium, Blood 2.3 mg/dL (1.6-2.4)
[2019-02-06 12:02] LABS: Prothrombin Time Results 10.6 Sec (9.7-11.5)
[2019-02-06 12:03] LABS: Acetaminophen, Random <2.0 ug/mL (10.0-30.0)
--- NOTE | 2019-02-06 14:30 | NUR ---
Pt arrival Pt arrives to PCU at 1435; transfers SBA to bed. Initially goes into bathroom for BM. Pt with CIWA of 10; 2mg ativan given per order. Pt is alert and oriented, VSS, tele with no events, see admission assessment for detailed systems assessment. Will continue to monitor. no acute concerns at this time
--- NOTE | 2019-02-06 18:38 | NUR ---
Shift Summary Pt admitted to PCU and no acute declines to note during shift. Pt medicated once with 2mg ativan for CIWA 10; no further medication required; all further CIWA scores <8. This pt is alert and oriented, able to make needs know, VSS, no events on tele. Pt is SBA to bathroom. Banana bag infused, NS now running per orders. No changed from admission assessment. Will continue to monitor until NOC RN assumes care
[2019-02-07 04:10] LABS: BASOPHILS ABSOLUTE AUTO 0.06 K/mm3 (0.00-0.23); BASOPHILS PERCENT AUTO 1 % (0-2); EOSINOPHILS ABSOLUTE AUTO 0.09 K/mm3 (0.00-0.68); EOSINOPHILS PERCENT AUTO 2 % (0-6); Hematocrit 45.2 % (37.0-53.0); Hemoglobin 14.9 g/dL (13.5-17.5); IMMATURE GRAN ABSOLUTE AUTO 0.02 K/mm3 (0.00-0.10); IMMATURE GRAN PERCENT AUTO 0 % (0-1); LYMPHOCYTES ABSOLUTE AUTO 0.96 K/mm3 (0.84-5.20); LYMPHOCYTES PERCENT AUTO 18 % (21-46); MONOCYTES ABSOLUTE AUTO 0.52 K/mm3 (0.16-1.47); MONOCYTES PERCENT AUTO 10 % (4-13); Mean Corpuscular HGB 28.9 pg (26.0-34.0); Mean Corpuscular Volume 88 fL (80-100); Mean Platelet Volume 8.5 fL (9.1-12.4); NEUTROPHILS ABSOLUTE AUTO 3.64 K/mm3 (1.96-9.15); NEUTROPHILS PERCENT AUTO 69 % (41-73); Platelet Count 188 K/mm3 (150-400); RDW Coefficient Variation 14.1 % (11.7-14.2); RDW Standard Deviation 45.5 fL (35.1-46.3); Red Blood Cell Count 5.16 M/mm3 (4.30-5.90); White Blood Cell Count 5.29 K/mm3 (4.00-11.30)
[2019-02-07 04:29] LABS: Alanine Aminotransfer (ALT/SGP 110 U/L (12-78); Albumin, Blood 3.2 g/dL (3.4-5.0); Albumin/Globulin Ratio 0.9 (0.8-1.8); Alk Phos 92 U/L (50-136); Anion Gap 4 mmol/L (6-16); Aspartate Aminotrans (AST/SGOT 98 U/L (12-37); Bilirubin, Total 0.7 mg/dL (0.1-1.0); Blood Urea Nitrogen 12 mg/dL (8-24); Bun/Creatinine Ratio 17.4 (12.0-20.0); CO2, Blood 28 mmol/L (21-32); Calcium, Blood 8.3 mg/dL (8.5-10.1); Chloride, Blood 108 mmol/L (98-108); Creatinine, Blood 0.69 mg/dL (0.60-1.20); Globulin, Blood 3.7 g/dL (2.2-4.0); Glomerular Filtration Rate >60 (60-); Glucose, Blood 106 mg/dL (70-99); Potassium, Blood 3.6 mmol/L (3.5-5.5); Sodium, Blood 140 mmol/L (136-145); Total Protein, Blood 6.9 g/dL (6.4-8.2)
--- NOTE | 2019-02-07 05:25 | NUR ---
SHIFT SUMMARY: PATIENT IS A&OX4, CIWA SCORES ARE BETWEEN 6-2 THROUGH THE SHIFT. ATIVAN WAS GIVEN AT THE START OF SHIFT FOR CIWA SCORE OF 10 WITH GOOD EFFECT. PATIENT IS OBSESSING ABOUT ADDERALL AND REQUESTING ADMIN AT 0600 AND 1800 WHICH IS WHEN HE TAKES THE MEDICATION AT HOME. WILL PASS ALONG TO DAY SHIFT TO HAVE MD ADDRESS.
--- NOTE | 2019-02-07 08:50 | NUR ---
assumed care pt with VSS, breathing even and unlabored on RA, no apparent sign of respiratory or cardiac distress. Pt with visible tremors, increasing agitation and anxiety, beads of sweat on forehead. Pt CIWA [address] and medicated per orders. Dr. Lopez at bedside with pt discussing plan of care. pt to continue to be assessed and medicated for withdrawl symptoms. Pt denies any chest pain or pressure. See shift assessment for detailed systems assessment. no acute concerns at this time
--- NOTE | 2019-02-07 12:01 | NUR ---
Spiritual care visit conducted. Patient openly shares his struggles with depression, suicidal thoughts, addiction, and mental illness. I conduct a life review, explore patient's belief system, reinforce heplful attitudes and practices, and provide pastoral vocational guidance counselor, inspirational materials and prayer. Patient responds well and displays evidence of restored xavier. I will continue to remain available to patient and family.
--- NOTE | 2019-02-07 17:40 | NUR ---
Shift summary Pt remains alert and oriented this shift with intermittent confusion, agitation, anxiety, and tremors. Confusion cleared after administration of lactulose and adderall, anxiety and agitation improved after ativan administrations. VSS. No apparent signs of distress. Pt is breating even and unlabored on RA, banana bag infused per orders and currenly 75mls/hr of ns infusing into RAC per orders. No acute concerns and no declines to note from initial shift assessment. Pt has been up in room, overall steady on feet but d/t CIWA and ativan administrations pt is to call before ambulation. This pt has not been calling appropriately but rather yells out to the nurses at the nursing station regardless of multiple redirections. Pt is cooperative with care. Spiritual care in to see pt this day, see note. Dr. Luna in to see pt this afternoon; education regarding substance abuse cessation given. Pt calm and expresses gratitude after both visits. Pt showered this afternoon, ate all meals, converses with staff with respect and is involved in his care. Pt has developed a safety plan if SI happens again, pt is planning to use the resources at [facility]. Will continue to monitor until NOC RN assumes care.
[2019-02-08 05:17] LABS: BASOPHILS ABSOLUTE AUTO 0.06 K/mm3 (0.00-0.23); BASOPHILS PERCENT AUTO 1 % (0-2); EOSINOPHILS ABSOLUTE AUTO 0.14 K/mm3 (0.00-0.68); EOSINOPHILS PERCENT AUTO 2 % (0-6); Hematocrit 49.2 % (37.0-53.0); Hemoglobin 15.9 g/dL (13.5-17.5); IMMATURE GRAN ABSOLUTE AUTO 0.04 K/mm3 (0.00-0.10); IMMATURE GRAN PERCENT AUTO 1 % (0-1); LYMPHOCYTES PERCENT AUTO 21 % (21-46); MONOCYTES ABSOLUTE AUTO 0.43 K/mm3 (0.16-1.47); MONOCYTES PERCENT AUTO 7 % (4-13); Mean Corpuscular HGB 28.6 pg (26.0-34.0); Mean Corpuscular HGB Conc 32.3 g/dL (31.5-36.5); Mean Corpuscular Volume 89 fL (80-100); Mean Platelet Volume 8.5 fL (9.1-12.4); NEUTROPHILS ABSOLUTE AUTO 4.14 K/mm3 (1.96-9.15); NEUTROPHILS PERCENT AUTO 68 % (41-73); Platelet Count 192 K/mm3 (150-400); RDW Coefficient Variation 14.1 % (11.7-14.2); RDW Standard Deviation 45.5 fL (35.1-46.3); Red Blood Cell Count 5.56 M/mm3 (4.30-5.90); White Blood Cell Count 6.11 K/mm3 (4.00-11.30)
[2019-02-08 05:46] LABS: Magnesium, Blood 2.5 mg/dL (1.6-2.4)
[2019-02-08 05:52] LABS: Alanine Aminotransfer (ALT/SGP 102 U/L (12-78); Albumin, Blood 3.5 g/dL (3.4-5.0); Albumin/Globulin Ratio 0.9 (0.8-1.8); Alk Phos 99 U/L (50-136); Anion Gap 9 mmol/L (6-16); Aspartate Aminotrans (AST/SGOT 70 U/L (12-37); Bilirubin, Total 0.7 mg/dL (0.1-1.0); Blood Urea Nitrogen 8 mg/dL (8-24); Bun/Creatinine Ratio 12.3 (12.0-20.0); CO2, Blood 24 mmol/L (21-32); Calcium, Blood 8.8 mg/dL (8.5-10.1); Chloride, Blood 110 mmol/L (98-108); Creatinine, Blood 0.65 mg/dL (0.60-1.20); Globulin, Blood 3.8 g/dL (2.2-4.0); Glomerular Filtration Rate >60 (60-); Glucose, Blood 109 mg/dL (70-99); Potassium, Blood 3.8 mmol/L (3.5-5.5); Sodium, Blood 143 mmol/L (136-145); Total Protein, Blood 7.3 g/dL (6.4-8.2)
--- NOTE | 2019-02-08 06:00 | NUR ---
SHIFT SUMMARY PT SLEEPING IN ROOM COMFORTABLY AT THIS TIME. NO ACUTE CNAHGES IN STATUS T/O NIGHT. PT SLEPT WELL, HAD TWO EPISODES OF CONFUSION AND ANXIETY DURING NIGHT. PT WAS MEDICATED PER EMAR FOR CIWA SCORES. PT NOW RESTING COMFORTABLY IN ROOM. RESP EVEN UNLABORED ON RA W/ SATS >92%. DENIED CP OR SOB T/O NIGHT. PT UP TO RR WITH STAFF ASSIST. NS INFUSING IN PIV AT 75/HR. DENIES OTHER NEEDS. CALL LIGHT IN REACH. BED ALARM ON FOR SAFETY D/T CONFUSION.
--- NOTE | 2019-02-08 07:30 | NUR ---
ASSUMED CARE: PT RESTING QUIETLY. NSR ON TELE. NO ACUTE NEEDS OR CONCERNS AT THIS TIME.
--- NOTE | 2019-02-08 09:49 | NUR ---
REPORT GIVEN TO SHAYE STEVENS. PT TRANSFERRED TO [facility] VIA WHEEL CHAIR. PT ALERTED TO ROOM CHANGE
--- NOTE | 2019-02-08 10:45 | NUR ---
1030 PATIENT TRANSFERRED FROM PCU THIS MORNING. HE IS A/O X4 AND HAS NO COMPLAINTS OF PAIN. CIWA WAS 3 . PATIENT HAS NO BREAKDOWN TO HIS SKIN AND IS ABLE TO EXPRESS ANY NEEDS. HE AMBULATES SAFELY TO THE RESTROOM. BANANA BAG RUNNING AT 200ML/HR. ONE AND DONE. PATIENT STATED HE HAD SOME ANXIETY OVER HIS LIFE AND SITUATION BUT HAD A PLAN TO GO TO [facility] AND GET THE HELP HE FEELS HE NEEDS. PATIENT IS IN RED RESTING AT THIS TIME, NO DISTRESS NOTED. CALL LIGHT WITHIN REACH.
--- NOTE | 2019-02-08 15:48 | NUR ---
PATIENT HAS RESTED IN HIS ROOM SINCE TRANSFER WITH NO COMPLAINTS. NO ACUTE CHANGES
--- NOTE | 2019-02-09 05:05 | NUR ---
PT ALERT, ORIENTED, AND COOPERATIVE WITH CARE THIS SHIFT. PT SITTING UP IN BED ON HIS PHONE EARLY IN THE SHIFT. PT INDEPENDENT IN THE ROOM. PT WITHOUT SIGNS OF WITHDARAL THIS SHIFT. PT HAS BEEN SLEEPING SINCE LATE IN THE EVENING.
[2019-02-09] MEDS ORDERED: METO50ER PO (11:18)
--- NOTE | 2019-02-09 13:17 | NUR ---
1300 PT HAD IV REMOVED PRIOR TO DISCHARGE. TOLERATED WELL. NURSE WENT OVER DISCHARGE PAPERS WITH PATIENT, MEDS SENT TO PHARMACY OF CHOICE. PATIENT EDUCATED REGARDING NEW MEDS AND TOLD TO FOLLOW UP WITH PSYCH DOCTOR. PATIENT DOESNT HAVE A PCP. PT WALKED OUT WITH AIDE TO WHO IS TAKING PATIENT HOME.
== END 2019-02-09 13:03 | disposition home or self-care (01) | DRG 897 ==
LOC: ER 17:01 → EOR 17:02 → PCU 02-06 11:34 → EOR 02-06 11:34 → ICUW 02-06 11:35 → PCU 02-06 13:44 → MEDS 02-08 09:54 → ENPENDDIS 02-09 10:30 → MEDS 02-09 13:03
PROVIDERS: Internal Medicine; Nurse Practitioner Acute Care; Physician Assistant; ADMIT Emergency Medicine
DX: F10.239 Alcohol dependence with withdrawal, unspecified (principal); R45.851 Suicidal ideations; F31.9 Bipolar disorder, unspecified; F90.9 Attention-deficit hyperactivity disorder, unspecified type; K70.30 Alcoholic cirrhosis of liver without ascites; B19.20 Unspecified viral hepatitis C without hepatic coma; K21.9 Gastro-esophageal reflux disease without esophagitis; Z23 Encounter for immunization
CPT/HCPCS: 36415; 71045; 80053; 81003; 82140; 83690; 83735; 84443; 84484; 85025; 85610; 90686; 93005; 93010; 96365; 96366; 96367; 96375; 99285-25; C9113; G0008; G0378; G0480; J2060; J3411; J3475; J7030; J7042; J7120

== ENCOUNTER 2019-03-05 09:45 | Day surgery (SDC) | payer MEDICARE ==
[~2019-03-05] VITALS: Ht 188 cm; Wt 115.4 kg
[~2019-03-05 09:45] MED LIST changes: +Amphetamine Sal30 MG PO; +METO50ER PO
== END 2019-03-05 12:14 | disposition home or self-care (01) ==
LOC: ORSCSDS 09:45
PROVIDERS: Internal Medicine Gastroenterology
PROC: 0DB58ZX Excision of Esophagus, Via Natural or Artificial Opening Endoscopic, Diagnostic (ICD-10-PCS; principal; 2019-03-05 11:45)
PROC: 0DB98ZX Excision of Duodenum, Via Natural or Artificial Opening Endoscopic, Diagnostic (ICD-10-PCS; principal; 2019-03-05 11:45)
DX: K70.30 Alcoholic cirrhosis of liver without ascites (principal); Z87.898 Personal history of other specified conditions; K21.9 Gastro-esophageal reflux disease without esophagitis; F41.8 Other specified anxiety disorders; I10 Essential (primary) hypertension; F31.81 Bipolar II disorder; R73.09 Other abnormal glucose; K44.9 Diaphragmatic hernia without obstruction or gangrene; G47.33 Obstructive sleep apnea (adult) (pediatric); E66.01 Morbid (severe) obesity due to excess calories; Z68.33 Body mass index [BMI] 33.0-33.9, adult; Z79.899 Other long term (current) drug therapy
CPT/HCPCS: 88305; J2704; J7120

== ENCOUNTER 2019-06-06 18:29 | Inpatient (IN) | payer MEDICARE ==
[~2019-06-06] VITALS: Ht 188 cm; Wt 110.9 kg
[~2019-06-06 18:29] MED LIST changes: -ARIP20 PO; -METO50ER PO; -TRAZ150T57 PO
[2019-06-06 18:45] LABS: BASOPHILS ABSOLUTE AUTO 0.15 K/mm3 (0.00-0.23); BASOPHILS PERCENT AUTO 2 % (0-2); EOSINOPHILS ABSOLUTE AUTO 0.44 K/mm3 (0.00-0.68); EOSINOPHILS PERCENT AUTO 4 % (0-6); Hemoglobin 15.7 g/dL (13.5-17.5); IMMATURE GRAN ABSOLUTE AUTO 0.14 K/mm3 (0.00-0.10); IMMATURE GRAN PERCENT AUTO 1 % (0-1); LYMPHOCYTES ABSOLUTE AUTO 3.78 K/mm3 (0.84-5.20); LYMPHOCYTES PERCENT AUTO 37 % (21-46); MONOCYTES ABSOLUTE AUTO 0.77 K/mm3 (0.16-1.47); MONOCYTES PERCENT AUTO 8 % (4-13); Mean Corpuscular HGB 27.8 pg (26.0-34.0); Mean Corpuscular HGB Conc 32.7 g/dL (31.5-36.5); Mean Corpuscular Volume 85 fL (80-100); Mean Platelet Volume 8.5 fL (9.1-12.4); NEUTROPHILS ABSOLUTE AUTO 4.97 K/mm3 (1.96-9.15); NEUTROPHILS PERCENT AUTO 48 % (41-73); Platelet Count 369 K/mm3 (150-400); RDW Coefficient Variation 14.8 % (11.7-14.2); RDW Standard Deviation 46.3 fL (35.1-46.3); Red Blood Cell Count 5.65 M/mm3 (4.30-5.90); White Blood Cell Count 10.25 K/mm3 (4.00-11.30)
[2019-06-06 19:05] LABS: Ethanol (Alcohol), Blood, Med 277 mg/dL; Salicylate <1.7 mg/dL (2.8-20.0)
[2019-06-06 19:08] LABS: Alanine Aminotransfer (ALT/SGP 41 U/L (12-78); Albumin, Blood 3.4 g/dL (3.4-5.0); Albumin/Globulin Ratio 0.8 (0.8-1.8); Alk Phos 117 U/L (50-136); Anion Gap 8 mmol/L (6-16); Aspartate Aminotrans (AST/SGOT 24 U/L (12-37); Bilirubin, Total 0.2 mg/dL (0.1-1.0); Blood Urea Nitrogen 6 mg/dL (8-24); CO2, Blood 22 mmol/L (21-32); Calcium, Blood 8.4 mg/dL (8.5-10.1); Chloride, Blood 112 mmol/L (98-108); Creatinine, Blood 0.67 mg/dL (0.60-1.20); Globulin, Blood 4.2 g/dL (2.2-4.0); Glomerular Filtration Rate >60 (60-); Glucose, Blood 123 mg/dL (70-99); Potassium, Blood 3.6 mmol/L (3.5-5.5); Sodium, Blood 142 mmol/L (136-145); Total Protein, Blood 7.6 g/dL (6.4-8.2)
[2019-06-06 19:09] LABS: Source, Urine Clean Catch
[2019-06-06 19:09] LABS: Acetaminophen, Random <2.0 ug/mL (10.0-30.0)
[2019-06-06 19:12] LABS: Appearance, Urine Clear (Clear); Bilirubin, Urine Neg (Neg); Blood, Urine Neg (Neg); Color, Urine Yellow (P-Yellow); Glucose Qualitative, Urine Neg (Neg); Ketones, Urine Neg (Neg); Leukocyte Esterase, Urine Neg (Neg); Nitrite, Urine Neg (Neg); Protein, Urine Neg (Neg); Urobilinogen, Urine NORM (Normal)
[2019-06-06] MEDS ORDERED: METO50ER PO (19:14)
[2019-06-06] MEDS ORDERED: VENL75ER PO (19:14)
[2019-06-06] MEDS ORDERED: TRAZ150T57 PO (19:15)
[2019-06-06] MEDS ORDERED: ARIP20 PO (19:15)
[2019-06-06] MEDS ORDERED: LACT10SY PO (19:15)
[2019-06-06 19:25] LABS: U Amphetamine Screen Not Detected; U Barbituate Screen Not Detected; U Benzodiazapine Screen DETECTED; U Buprenorphine Screen Not Detected; U Cannabinoids Screen Not Detected; U Cocaine Screen Not Detected; U Methadone Screen Not Detected; U Methamphetamine Screen Not Detected; U Opiates Screen Not Detected; U Oxycodone Screen Not Detected; U Phencyclidine Screen Not Detected
[2019-06-06 19:26] LABS: U Propoxyphene Screen Not Detected
--- NOTE | 2019-06-07 01:00 | NUR ---
PT TO ICU 6 VIA GURNEY WITH 2 ED RN'S @ 2323, PT DROWSY BUT ALERT, ORIENTED TO SELF AND LOCATION, UNSURE OF EVENTS LEADING UP TO ADMISSION. PT FOLLOWING DIRECTIONS, GARBLED SPEECH AT TIMES. O2 SATURATIONS MAINTAINED>90% ON RA WITH RR 15-20. MONITOR SHOWS SINUS TACH WITH HR 100-105, BP STABLE. PT TOLERATES PO FLUIDS. PT MOVES ALL EXTREMETIES BUT IS VERY WEAK THROUGHOUT. PT CURRENTLY CALM AND COOPERATIVE, WATCHING TELEVISION, CALL LIGHT WITHIN REACH.
--- NOTE | 2019-06-07 03:04 | NUR ---
PT AWAKE IN BED, SPEECH IMPROVING, ORIENTED TO SELF, PLACE, EVENT AND FOLLOWING DIRECTIONS. PT ANSWERING MOST QUESTIONS APPROPRIATELY, SOMETIMES HAS DIFFICULTY TRACKING WITH CONVERSATIONS OR MAKES ODD REMARKS NOT RELEVANT TO THE CONVERSATION.
[2019-06-07 03:25] LABS: BASOPHILS ABSOLUTE AUTO 0.11 K/mm3 (0.00-0.23); BASOPHILS PERCENT AUTO 1 % (0-2); EOSINOPHILS ABSOLUTE AUTO 0.13 K/mm3 (0.00-0.68); EOSINOPHILS PERCENT AUTO 1 % (0-6); Hematocrit 47.4 % (37.0-53.0); Hemoglobin 15.6 g/dL (13.5-17.5); IMMATURE GRAN PERCENT AUTO 1 % (0-1); LYMPHOCYTES ABSOLUTE AUTO 2.17 K/mm3 (0.84-5.20); LYMPHOCYTES PERCENT AUTO 24 % (21-46); MONOCYTES ABSOLUTE AUTO 0.43 K/mm3 (0.16-1.47); MONOCYTES PERCENT AUTO 5 % (4-13); Mean Corpuscular HGB 27.9 pg (26.0-34.0); Mean Corpuscular HGB Conc 32.9 g/dL (31.5-36.5); Mean Corpuscular Volume 85 fL (80-100); Mean Platelet Volume 8.8 fL (9.1-12.4); NEUTROPHILS PERCENT AUTO 68 % (41-73); Platelet Count 366 K/mm3 (150-400); RDW Coefficient Variation 14.6 % (11.7-14.2); RDW Standard Deviation 45.5 fL (35.1-46.3); Red Blood Cell Count 5.59 M/mm3 (4.30-5.90); White Blood Cell Count 9.24 K/mm3 (4.00-11.30)
[2019-06-07 03:45] LABS: Anion Gap 9 mmol/L (6-16); Blood Urea Nitrogen 5 mg/dL (8-24); Bun/Creatinine Ratio 7.2 (12.0-20.0); CO2, Blood 22 mmol/L (21-32); Chloride, Blood 112 mmol/L (98-108); Creatinine, Blood 0.69 mg/dL (0.60-1.20); Glomerular Filtration Rate >60 (60-); Glucose, Blood 133 mg/dL (70-99); Potassium, Blood 3.9 mmol/L (3.5-5.5); Sodium, Blood 143 mmol/L (136-145)
--- NOTE | 2019-06-07 06:23 | NUR ---
SHIFT SUMMARY PT REMAINS AWAKE T/O NIGHT, ALERT AND MORE ORIENTED TOWARDS END OF SHIFT, PT DOES APPEAR CONFUSED AT TIMES, MAKING COMMENTS/STATEMENTS NOT PERTAINING TO CURRENT CONVERSATION, BUT ANSWERS QUESTIONS APPROPRIATELY. PT REMAINS ON RA, O2 SATURATIONS>90%. MONITOR SHOWS SINUS TACH, HR 100-110, HTN NOTED WITH SBP 150-170'S. PT CONTINENT OF URINE, PT REPORTED NEEDING TO HAVE BM, SAT PT UP IN BED AND PT REPORTED DIZZINESS, ASSISTED PT TO BEDPAN, NO BM THIS SHIFT. 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 PT REPORTS PERSISTENT SI, BUT NO FURTHER PLANS OR ATTEMPTS. PT REPORTS HAVING STOPPED TAKING MEDICATIONS APPROX 1 WEEK AGO. PT UNABLE TO REPORT MEDICATIONS AND DOSAGES WITH THIS RN.
--- NOTE | 2019-06-07 07:33 | NUR ---
ASSUMED CARE: PT RESTING IN BED, TALKING WITH STAFF. STATES HE REMEMBERS DRINKING, STATES HE NORMALLY DRINKS 4 6PACKS A DAY, STARTING EARLY IN AM. STATES HE IS FEELING NAUSEATED AND SHAKEY CURRENTLY. CALLED MD FOR CIWA PROTOCOL. STATES IF HE HAD THE OPPROTUNITY AGAIN HE WOULD NOT ATTEMTPT TO KILL HIMSELF AND DENIES SUICIDAL THOUGHTS. QT INTERVAL WNL AT THIS TIME. MEDICATED FOR NAUSEA, IV FLUIDS RUNNING. PT AWARE OF NAME, , MONTH, HOSPITAL, PRESIDENT, BUT THOUGHT TODAY WAS SUNDAY RATHER THAN SUNDAY. PLAN TO CALL PT'S LATER IN THE AM FOR MED REC. NO FURTHER NEEDS AT THIS TIME.
--- NOTE | 2019-06-07 10:19 | NUR ---
TELESPYCH APPOINTMENT MADE. PT GIVEN CLONIDINE FOR HYPERTENSION. DENIES NEEDS A THIS TIME.
--- NOTE | 2019-06-07 11:50 | NUR ---
TELEPSYCH COMPLETE. DOCTOR TO CONTACT HOSPITALIST.
--- NOTE | 2019-06-07 12:41 | NUR ---
CONTACTED DR CAPONE REGARDING PSYCH RECOMMENDATIONS. PSYCH MEDS REORDERED. CONTACTED NURSING POLITICAL CONSULTANT TO ENSURE THEY ARE AWARE OF HOLD CHANGES. SITTER RELEASED PER ORDERS FROM DR CAPONE.
--- NOTE | 2019-06-07 17:42 | NUR ---
PT'S CALLED AND ASKED FOR UPDATE. WAS INFORMED THAT INPT PSYCH IS RECOMMENDED. ASKED IF SHE COULD SPEAK TO HER . DISCUSSED WITH PT WHO STATED HE FELT SHE WOULD BE A POSITIVE IMPACT. PT SPOKE WITH FOR 5 MINUTES. UNDERSTANDS PROTOCOLS REGARDING PHONE CALLS. PT STATES PHONE CALL WAS PLEASANT AND WAS APPRECIATIVE.
--- NOTE | 2019-06-07 18:14 | NUR ---
SHIFT SUMMARY: PT SITTING UPRIGHT IN BED. AWAITING TRANSFER TO INPT PSYCH UNIT. FAMILY AWARE. PT HAS NOT EXHIBITED ANY CARDIAC SYMPTOMS AT THIS TIME. DENIES NEEDS OR CONCERNS. CIWA HIGH 13 THIS SHIFT. RESPONDED WELL TO MEDICATIONS. DENIES FURTHER NEEDS OR CONCERNS.
--- NOTE | 2019-06-07 20:34 | NUR ---
PT RESTING IN BED. A/O X4. DENIES PAIN. C/O NAUSEA, GAVE ZOFRAN. SEE CIWA SCORE. NO SIGN OF DISTRESS. CALL LIGHT IN REACH AND PT HAS BEEN USING IT APPROPRIATELY.
--- NOTE | 2019-06-08 06:01 | NUR ---
SUMMARY PT RESTING IN BED. NO CHANGES OVERNIGHT. CIWA 4-8 ALL NIGHT. AWAITING INPT PSYCH.
--- NOTE | 2019-06-08 08:28 | NUR ---
ASSUMED CARE NOTE REPORT RECEIVED FROM SHAYE BISHOP. BEDSIDE ROUNDING DONE. PT RESTING IN BED, ALERT AND ORIENTED. PT WITHOUT ANY COMPLAINTS AT THIS TIME. NO S/SX DISTRESS NOTED. NS RUNNING PER ORDERS. BED IN LOWEST POSITION, UPPER SIDE RAILS RAISED. CALL LIGHT IN REACH. 2MD HOLD IN PLACE AND CAMERAS ON FOR MONITORING. WILL CONT TO MONITOR PT.
--- NOTE | 2019-06-08 10:01 | NUR ---
CALL FROM POISON CONTROL CALL FROM POISON CONTROL REQUESTING UPDATE. PT STATUS, VS, AND PLAN OF CARE REVIEWED WITH POISON CONTROL. NO FURTHER QUESTIONS OR RECOMMENDATIONS RECEIVED. WILL CONT TO MONITOR PT.
--- NOTE | 2019-06-08 12:58 | NUR ---
CALL TO DR CAPONE CALL TO DR CAPONE BY SHAYE ANTUNEZ TO DISCUSS POSSIBLE TRANSFER TO MEDICAL FLOOR AND D/C OF IVF PT TAKING GOOD ORAL INTAKE. PER DR CAPONE PT OKAY TO CHANGE STATUS TO MEDICAL AND IVF TO D/C. NO FURTHER CHANGES TO PLAN OF CARE AT THIS TIME. WILL CONT TO MONITOR PT.
--- NOTE | 2019-06-08 14:29 | NUR ---
TRANSFER NOTE REPORT CALLED TO SHAYE COOPER. PT TO TRANSFER TO MEDICAL FLOOR ROOM 351. PT NOTIFIED OF THIS.
--- NOTE | 2019-06-08 14:48 | NUR ---
SITTER/CAMERA NOTIFIED OF TRANSFER CALL TO SITTER/CAMERA STAFF THAT PT IS TRANSFERRING FROM ICU 6 TO [place] [id number] AT THIS TIME. PT REMAINS A 2MD HOLD.
--- NOTE | 2019-06-08 15:14 | NUR ---
PT ARRIVED TO THE UNIT VIA WHEELCHAIR. HE WAS FAMMILIARIZED WITH THE ROOM. CALLED TO MAKE SURE PT WAS ON CAMERA. HE REQUESTED WATER AND A PEPSI. PT IS PLESANT AND COOPERATIVE. PT DENIES ANY SI AT THIS TIME.
--- NOTE | 2019-06-08 19:46 | NUR ---
PLEASANT AFFECT. SPOKE TO NURSE RE WHY HE ATTEMPTED TO KILL HIMSELF. THEN STATED RIGHT AFTER HE SWALLOWED THE "PILLS" HE THOUGHT ABOUT HIS FAMIL AND CALLED FOR HELP. VERBAL CONTRACT GIVEN TO LET NURSE KNOW IF HE FELT LIKE HURTING HIMSELF BEFORE MAKING ANY ATTEMPT. ROOM ASSESSED FOR SAFETY. CALL LIGHT IN REACH.
--- NOTE | 2019-06-09 01:06 | NUR ---
PT REMAINS ON SUICIDE MONITORING. CONTINUOUS VIDEO OBSERVATION, AND STAFF MONITORING WHEN UP TO THE RESTROOM. GAVE VERBAL CONTRACT OF NOTIFYING STAFF OF ANY IDEATIONS OF SELF HARM PRIOR TO ACTING OUT. NO NOTED S/S OF SELF HARM THIS SHIFT. TOLERATING FLUIDS AND SNACKS. CIWAS NEGATIVE OF THIS WRITING. CALL LIGHT IN REACH. WILL CONTINUE TO MONITOR.
--- NOTE | 2019-06-09 09:30 | NUR ---
ASSISTED THE PT TO USE THE TELEPHONE SO HE COULD CALL HIS . STOOD BY WHILE PT MADE THE CALL AND REMOVED THE PHONE AFTER. PT IS VERY UNDERSTANDING AND THE CALL HELPED WITH THE MILD ANXIETY HE SEEMED TO HAVE. PT LEFT A VOICEMAIL FOR HIS .
--- NOTE | 2019-06-09 12:08 | NUR ---
STOOD BY AND ASSISTED PT WITH A PHONE CALL TO HIS , THIS SEEMS TO HELP WITH HIS MILD ANXIETY NOW THAT HE WAS ABLE TO REACH HER. PT WAS SEEN BY RUSTAM CR TO DEVELOPE A SAFETY PLAN. PT TO BE SEEN TODAY BY DR PATEL. PT STARTED BACK ON HIS ADDERAL TODAY HOWEVER HE IS CONCERNED BECAUSE HIS DOSING AT HOME WAS 30MG PO BID AT 0500 AND 1200. PT STATED HE HAS BEEN OFF THIS MED FOR THE PAST 3 DAYS. PT CURRENT DOSE HERE IS 10 MG PO DAILY. PUT A REMINDER NOTE ON THE BOARD FOR THE PT TO TALK WITH DR PATEL ABOUT IT WHEN HE COMES TO SEE HIM.
--- NOTE | 2019-06-09 12:31 | NUR ---
Safety Plan comlete. Patient well spokem and described his depression as extreme low energy, not showering for a week, increase sleeping and stayng in bed. He reports a head injusy in 2003 and his "memory is poor". He was drinking at the time of this OD attempt. Reports off of his meds for anywhere between 2 weeks to over a month-he was not sure. He states his diagnosis is bipolar, depression, ADHD and PTSD. He is not good about refilling his prescriptions, and states finances is sometimes a probe, he just began part D for his Medicare. He is on SSDI and has been on OHP in past. [facility] skin care instructor notifed that he needs help applying while in the hospital. He was very gratefu and excited about this prospect. He reports frequent suicid attempts,and his last psychiatric hospitalizatipon was aver 1 year ago. He has been a drinker since age 16 and has cirrhosis and did have Hep C, but took medication that "cured it". He reports being in treatment in 2006 os so, and has had relapse or 2 since. He did attend AA and has a sponsor who he has called since hospitalized. He is since 2009 or so, no chldren in this marriage but has 2 older children from a previous relationship that he does talk to by phone. Hi works at a bank and he reports he feels bad when he gets depressed and cannot be supportive of her. Her grandmother just recently. He is well spoken and polite. He reports no suicidal thoughts or intent currently. Brief interventions written down for him, as he states his memory is poor, a copy is in his record. he agreed to reconnet with his sponsor, make a goal to complet every day, move his meds to a hard to access place to decrease impulsive act of taking meds whem very depressed. He hs seen Dr. Rincon in the past and has an appointment to see him. Discussed importance of med compliance with him. He does not currently use a med minder container, and discussed with him that using one may help him get feedback to himself, and his sife, when he stopes taking his meds. He wants to begin addressing taking care of increased trash in his house and storage area that pile up whem he is depressed and low energy. He actively engaged in the planning. Mackenzie Cox M.Ed., [facility]
[2019-06-09] MEDS ORDERED: AMLO5 PO (16:09)
--- NOTE | 2019-06-09 17:22 | NUR ---
Mr. Pelaez was very friendly and engaged well. He admits to trying "this" before. He was interested in recovery and was familiar with AA. I provided a list of AA hotline and every AA meeting in [facility]. He plans on starting one-on-one counseling, becoming more active, and attending meetings. He was in the process of being discharged.
--- NOTE | 2019-06-09 18:07 | NUR ---
DISCHARGE NOTE- PT WAS GIVEN VERBAL AND WRITTEN DISCHARGE INSTRUCTIONS AND ACKNOWLEDGED UNDERSTANDING OF THEM. PT IV WAS DC'D, SPOUSE NOTIFIED OF DISCHARGE AND SHE PRIETO PT CLOTHING. PT DISCHARGE PAPERS WERE COMPLETED BY SHAYE LAWSON. BEDSIDE RN CALLED AND ARRANGED FOLLOW-UP APPOINTMENTS. PT AWARE OF THE TIME FOR FOLLOW UP AND THE CALL HE SHOULD RECIEVE FROM HIS PCP REGUARDING THE FOLLOW UP THERE. PT WAS ESCORTED OUT VIA WC BY THE RN. NO FURTHER QUESTIONS AT THE TIME OF DISCHARGE.
== END 2019-06-09 17:02 | disposition home or self-care (01) | DRG 918 ==
LOC: ER 18:29 → ICUE 22:17 → ERHOLD 22:17 → ICUE 23:12 → MEDS 06-08 14:54
PROVIDERS: Emergency Medicine; ADMIT Internal Medicine
DX: T45.0X2A Poisoning by antiallergic and antiemetic drugs, intentional self-harm, initial encounter (principal); F31.9 Bipolar disorder, unspecified; F90.9 Attention-deficit hyperactivity disorder, unspecified type; F10.10 Alcohol abuse, uncomplicated; K21.9 Gastro-esophageal reflux disease without esophagitis; I10 Essential (primary) hypertension; Y90.8 Blood alcohol level of 240 mg/100 ml or more
CPT/HCPCS: 36415; 80048; 80053; 81003; 83735; 85025; 93005; 93010; 96360; 99285-25; G0480; J1650; J2405; J7030

== ENCOUNTER 2019-07-07 20:46 | Inpatient (IN) | payer MEDICARE ==
[~2019-07-07] VITALS: Ht 188 cm; Wt 108.0 kg
[~2019-07-07 20:46] MED LIST changes: +AMLO5 PO; +ARIP20 PO; +METO50ER PO; +TRAZ150T57 PO; +VENL75ER PO
[2019-07-07 21:51] LABS: BASOPHILS PERCENT AUTO 1 % (0-2); EOSINOPHILS ABSOLUTE AUTO 0.08 K/mm3 (0.00-0.68); EOSINOPHILS PERCENT AUTO 1 % (0-6); Hematocrit 49.4 % (37.0-53.0); Hemoglobin 16.8 g/dL (13.5-17.5); IMMATURE GRAN ABSOLUTE AUTO 0.01 K/mm3 (0.00-0.10); IMMATURE GRAN PERCENT AUTO 0 % (0-1); LYMPHOCYTES ABSOLUTE AUTO 2.17 K/mm3 (0.84-5.20); LYMPHOCYTES PERCENT AUTO 29 % (21-46); MONOCYTES ABSOLUTE AUTO 0.77 K/mm3 (0.16-1.47); MONOCYTES PERCENT AUTO 10 % (4-13); Mean Corpuscular HGB 28.5 pg (26.0-34.0); Mean Corpuscular Volume 84 fL (80-100); Mean Platelet Volume 8.4 fL (9.1-12.4); NEUTROPHILS ABSOLUTE AUTO 4.26 K/mm3 (1.96-9.15); NEUTROPHILS PERCENT AUTO 58 % (41-73); Platelet Count 227 K/mm3 (150-400); RDW Coefficient Variation 15.3 % (11.7-14.2); RDW Standard Deviation 46.3 fL (35.1-46.3); White Blood Cell Count 7.39 K/mm3 (4.00-11.30)
[2019-07-07 21:53] LABS: Source, Urine Clean Catch
[2019-07-07 21:55] LABS: Bilirubin, Urine Neg (Neg); Blood, Urine Neg (Neg); Glucose Qualitative, Urine Neg (Neg); Ketones, Urine Neg (Neg); Leukocyte Esterase, Urine Neg (Neg); Nitrite, Urine Neg (Neg); Protein, Urine Neg (Neg); Specific Gravity, Urine 1.005 (1.003-1.022); Urobilinogen, Urine NORM (Normal)
[2019-07-07 22:01] LABS: Appearance, Urine Clear (Clear); Color, Urine Yellow (P-Yellow)
[2019-07-07 22:05] LABS: U Amphetamine Screen Not Detected; U Barbituate Screen Not Detected; U Benzodiazapine Screen Not Detected; U Buprenorphine Screen Not Detected; U Cannabinoids Screen Not Detected; U Cocaine Screen Not Detected; U Methadone Screen Not Detected; U Methamphetamine Screen Not Detected; U Opiates Screen Not Detected; U Oxycodone Screen Not Detected; U Phencyclidine Screen Not Detected; U Propoxyphene Screen Not Detected
[2019-07-07 22:08] LABS: International Normalized Ratio 1.13
[2019-07-07 22:12] LABS: Ethanol (Alcohol), Blood, Med 299 mg/dL
[2019-07-07 22:15] LABS: Albumin, Blood 3.5 g/dL (3.4-5.0); Albumin/Globulin Ratio 0.9 (0.8-1.8); Alk Phos 155 U/L (50-136); Anion Gap 9 mmol/L (6-16); Aspartate Aminotrans (AST/SGOT 836 U/L (12-37); Bilirubin, Total 0.8 mg/dL (0.1-1.0); Blood Urea Nitrogen 17 mg/dL (8-24); Bun/Creatinine Ratio 23.2 (12.0-20.0); CO2, Blood 22 mmol/L (21-32); Calcium, Blood 7.5 mg/dL (8.5-10.1); Chloride, Blood 107 mmol/L (98-108); Creatinine, Blood 0.73 mg/dL (0.60-1.20); Globulin, Blood 4.1 g/dL (2.2-4.0); Glomerular Filtration Rate >60 (60-); Glucose, Blood 116 mg/dL (70-99); Potassium, Blood 3.8 mmol/L (3.5-5.5); Sodium, Blood 138 mmol/L (136-145); Total Protein, Blood 7.6 g/dL (6.4-8.2)
[2019-07-07 22:25] LABS: Alanine Aminotransfer (ALT/SGP 575 U/L (12-78)
--- NOTE | 2019-07-08 02:27 | NUR ---
PT TO ICU 11 FROM ED AT 0130. PT PLEASANT AND COOPERATIVE, ABLE TO STAND AND TRANSFER TO ICU BED WITH STANDBY ASSIST. PT ABLE TO STATE NAME, , AND THAT HE WAS "IN THE HOSPITAL THAT IS IN DEPORT", PT UNABLE TO RECALL MONTH/DATE BUT KNOWS IT'S "2019". PT REPORTS THAT HE HAS FELT SUICIDAL OVER THE PAST FEW DAYS BUT THAT CURRENTLY HE IS "TOO TIRED TO THINK ABOUT IT OR DO ANYTHING ABOUT IT". PT EMOTIONAL AND HONEST WITH HIS STRUGGLES AND DESIRE TO GET HELP. PT ON 2-MD HOLD, ROOM MITIGATED PER SUICIDE PROTOCOL, CAMERA MONITORING ON, DOOR/CURTAIN OPEN. PT REPORTS RECENT SUICIDE ATTEMPT BY "TAKING SLEEPING PILLS". PT ADMITS THAT HE IS PRESCRIBED ADDERALL AND THAT HE DOES NOT TAKE IT PRESCRIBED. PT REPORTS THAT HE IS SUPPOSED TO TAKE "1 ADDERALL TWICE DAILY" BUT THAT HE INSTEAD TAKES "2 PILLS EVERY 4 HOURS UNTIL BOTTLE IS EMPTY". PT REPORTS DESIRE TO START ANTABUSE AND TO GO TO REHAB. PT REPORTEDLY DRINKS 24 BEERS/DAY. PAST 2-WEEKS HE HAS FELT NAUSEOUS AND HAD SOME VOMITING SO HE WAS ONLY ABLE TO DRINK 6 BEER/DAY WITH "VOMITING IN BETWEEN SIPS", PT BEGAN DRINKING "WHITE [place]W" YESTERDAY HE WAS BETTER ABLE TO TOLERATE AND KEEP IT DOWN. PT STOPPED TAKING LACTULOSE "AROUND A MONTH AGO", PT STATES THAT HE ONLY GOT THE PRESCRIPTION TO "HELP HIS CAT". PER PATIENT, HIS CAT NEEDED PRESCRIPTION LACTULOSE D/T KIDNEY PROBLEM, PT UNABLE TO AFFORD "CAT LACTULOSE" SO HE BEGAN GIVING THE CAT HIS OWN PRESCRIPTION. EDUCATED PT ON PURPOSE OF LACTULOSE AND IMPORTANCE OF TAKING PRESCRIBED. PT REPORTS THAT HE HAS BEEN INCONTINENT OF BOWEL AND BLADDER FOR SEVERAL WEEKS D/T INCREASING CONFUSION. PT PLACED IN ATTENDS HE WAS GIVEN DOSE OF LACTULOSE ON ARRIVAL TO UNIT. PT ABLE TO AMBULATE WITH STANDBY ASSIST TO TOILET, UNABLE TO HAVE BOWEL MOVEMENT. CURRENT CIWA 10. MINOR VISIBLE TREMORS NOTED, CONFUSION. FIRST DOSE OF LACTULOSE GIVEN, BANANA BAG INFUSING. PT'S CALLED AND MESSAGE LEFT UPDATING ON PT STATUS AND ROOM NUMBER. SEE FULL ADMISSION ASSESSMENT.
[2019-07-08 06:36] LABS: Alanine Aminotransfer (ALT/SGP 496 U/L (12-78); Albumin, Blood 3.2 g/dL (3.4-5.0); Albumin/Globulin Ratio 0.9 (0.8-1.8); Alk Phos 138 U/L (50-136); Anion Gap 10 mmol/L (6-16); Aspartate Aminotrans (AST/SGOT 612 U/L (12-37); Bilirubin, Total 0.7 mg/dL (0.1-1.0); Blood Urea Nitrogen 19 mg/dL (8-24); Bun/Creatinine Ratio 26.9 (12.0-20.0); CO2, Blood 21 mmol/L (21-32); Calcium, Blood 6.9 mg/dL (8.5-10.1); Chloride, Blood 110 mmol/L (98-108); Creatinine, Blood 0.71 mg/dL (0.60-1.20); Globulin, Blood 3.6 g/dL (2.2-4.0); Glomerular Filtration Rate >60 (60-); Glucose, Blood 122 mg/dL (70-99); Magnesium, Blood 2.8 mg/dL (1.6-2.4); Potassium, Blood 3.4 mmol/L (3.5-5.5); Sodium, Blood 141 mmol/L (136-145); Total Protein, Blood 6.8 g/dL (6.4-8.2)
--- NOTE | 2019-07-08 06:41 | NUR ---
SHIFT SUMMARY NO ACUTE CHANGES SINCE ADMISSION. PT REMAINS APPROPRIATE AND COOPERATIVE WITH CARE. PT ABLE TO HAVE SEVERAL LOOSE BOWEL MOVEMENTS SINCE TAKING LACTULOSE. CIWA SCORE REMAINS 10 WITH NO INCREASING SIGNS OF WITHDRAWL. PT REPORTS ANXIETY AND IS FIXATED ON BEING ALLOWED TO EAT/DRINK. PT REMAINS MODERATE SUICIDE RISK AND IS ON CAMERA MONITORING. VSS. WILL REPORT TO DAYSHIFT NURSE.
--- NOTE | 2019-07-08 10:22 | NUR ---
ASSISTED PATIENT WITH WIRES TO ENABLE TRIP TO TOILET. A SANDWICH AND APPLE JUICE WELL APPLE SLICES AND PEANUT BUTTER PROVIDED FOR BREAKFAST. AM MEDS TAKEN WITHOUT DIFFICULTY. PATIENT VERY COOPERATIVE.
--- NOTE | 2019-07-08 12:44 | NUR ---
RUSTAM EASTON IN TO SEE PATIENT REPORTS PATIENT ABUSING ADDERAL. WORKING ON GETTING TO MANAGE MEDS.
--- NOTE | 2019-07-08 12:52 | NUR ---
CALL TO DR DAMARI RUIZ UPDATED ON NUMBER OF BOWEL MOVEMENTS AFTER RESTARTING ENULOSE. ORDER TO CHANGE ENULOSE TO 20GM BID, TO START TOMORROW AND RECHECK AMMONIA IN AM.
--- NOTE | 2019-07-08 12:57 | NUR ---
Safety Plan completed to best of patient's ability. Patient misusing Adderall because it "gives me energy". He also stopped taking his Lactulose and became very confused, which prompted , jade, to bring him to ER. Patientis calm and cooperative. He has difficulty remembering some items due to TBI. He does report he has been drinking some lately, but "I cant drink much anymore". He reports low energy and does not shower for days. Unsure if this is current issue, or if he is relaying past information, as the last admit he said the same things. He will need clarified his next appoinment with Dr. samaniego at [facility]. Gave report to Charge Nurse that Care Management was contcted to see if assist with applying for Medicaid to help with medication expenses along with his SSDI Medicare; and that psychiatrist appointment should be checked into. Patient denies suicide while in the hospital, but does report he thinks of it when home, but does not act on it. No firearms in the home. Asked nurse to check with to see if she might be able to track his meds and his compliance with taking meds. He does not have a onsite case manager at this time, and unsure if he did have one at some time, as [facility].
--- NOTE | 2019-07-08 13:33 | NUR ---
0800.. PT A/O AND PLEASANT. PT IS COOPERATIVE WITH CARE AND DENIES ANY CURRENT DISTRESS OR CONFUSION BUT REMEMBERS SOME LAST PM. PT IS UP TO COMMODE AND BSC FOR STOOLING. PT IS REQUESTING FOOD AND WILL FOLLOW WITH DR ARIELLE SEGURA.
--- NOTE | 2019-07-08 13:36 | NUR ---
REPORT CALLED TO [facility] AND WILL TRANSFER TO PCU-3 IMELDA. PT IS SETTING UP IN BED AND C/O SOME NAUSEA THAT HE HAS BEEN MEDICATED FOR.
--- NOTE | 2019-07-08 13:58 | NUR ---
DR CUTLERUFF HERE DR IN SEEING PATIENT, UPDATED. WILL WAIT FOR EVAL TO FINISH TO UPDATE CHART.
--- NOTE | 2019-07-08 14:12 | NUR ---
1325 REPORT CALLED TO [facility] AND WHEN ROOM IS CLEAR WILL TRANSPORT TO PCU-3.
--- NOTE | 2019-07-08 16:02 | NUR ---
Avery appears to be a gentle soul. We was personable and soft-spoken as he told me about the many traumatic events in his life. He admits to me that he has been mis-using his medication b/c he likes the energy this gives him. He has been in and out of recovery from drugs and ETOH. He has a sponser in a 12-step program. He loves his and tells me this is a bright spot in his life. He was appreciative of theraputic listening and gentle drapery counselor. I provided prayer at bedside. I will remain available.
--- NOTE | 2019-07-08 20:00 | NUR ---
PCU TRANSFER SUMMARY PATIENT ARRIVED TO PCU VIA WHEEL CHAIR - TRANSFERED TO UNIT BED WITH STEADY GAIT. VSS. NO ACUTE DISTRESS NOTED, PATIENT DENIED ANY PAIN T/O SHIFT. MEDICATION GIVEN FOR FEVER - MD NOTIFIED. PATIENT DENIES ANY SI IDEATIONS AT THIS TIME. DOOR LEFT OPEN, PATIENT IN CAMERA ROOM ON LOW SI SCALE PER MD HARP. REPORTED TO SHASHI COOPER SHIFT RN. PATIENT ALERT AND ORIENTED, PLEASANT AND COOPERATIVE WITH CARE. PATIENT DOES REPORT THAT HE HAS BEEN HAVING HALLUCINATIONS, BUT HE IS AWARE THAT THEY ARE NOT REAL. CALL LIGHT W/I REACH.
[2019-07-09 03:23] LABS: BASOPHILS ABSOLUTE AUTO 0.05 K/mm3 (0.00-0.23); BASOPHILS PERCENT AUTO 1 % (0-2); EOSINOPHILS ABSOLUTE AUTO 0.14 K/mm3 (0.00-0.68); EOSINOPHILS PERCENT AUTO 3 % (0-6); Hematocrit 45.3 % (37.0-53.0); Hemoglobin 14.9 g/dL (13.5-17.5); IMMATURE GRAN ABSOLUTE AUTO 0.02 K/mm3 (0.00-0.10); IMMATURE GRAN PERCENT AUTO 0 % (0-1); LYMPHOCYTES ABSOLUTE AUTO 1.97 K/mm3 (0.84-5.20); LYMPHOCYTES PERCENT AUTO 35 % (21-46); MONOCYTES ABSOLUTE AUTO 0.66 K/mm3 (0.16-1.47); MONOCYTES PERCENT AUTO 12 % (4-13); Mean Corpuscular HGB 27.7 pg (26.0-34.0); Mean Corpuscular HGB Conc 32.9 g/dL (31.5-36.5); Mean Corpuscular Volume 84 fL (80-100); Mean Platelet Volume 8.9 fL (9.1-12.4); NEUTROPHILS ABSOLUTE AUTO 2.87 K/mm3 (1.96-9.15); NEUTROPHILS PERCENT AUTO 50 % (41-73); Platelet Count 144 K/mm3 (150-400); RDW Coefficient Variation 14.9 % (11.7-14.2); Red Blood Cell Count 5.37 M/mm3 (4.30-5.90); White Blood Cell Count 5.71 K/mm3 (4.00-11.30)
[2019-07-09 03:43] LABS: Alanine Aminotransfer (ALT/SGP 370 U/L (12-78); Albumin/Globulin Ratio 0.8 (0.8-1.8); Alk Phos 140 U/L (50-136); Anion Gap 8 mmol/L (6-16); Aspartate Aminotrans (AST/SGOT 283 U/L (12-37); Bilirubin, Total 1.7 mg/dL (0.1-1.0); Blood Urea Nitrogen 21 mg/dL (8-24); Bun/Creatinine Ratio 29.1 (12.0-20.0); CO2, Blood 23 mmol/L (21-32); Calcium, Blood 7.7 mg/dL (8.5-10.1); Chloride, Blood 109 mmol/L (98-108); Creatinine, Blood 0.72 mg/dL (0.60-1.20); Globulin, Blood 3.6 g/dL (2.2-4.0); Glomerular Filtration Rate >60 (60-); Glucose, Blood 106 mg/dL (70-99); Magnesium, Blood 2.4 mg/dL (1.6-2.4); Potassium, Blood 3.5 mmol/L (3.5-5.5); Sodium, Blood 140 mmol/L (136-145); Total Protein, Blood 6.6 g/dL (6.4-8.2)
--- NOTE | 2019-07-09 05:05 | NUR ---
SHIFT SUMMARY: PATIENT C/O SENSATION OF BUGS CRAWLING ON SKIN, CIWA OF 9, LIBRIUM GIVEN AND THEN PATIENT SLEPT WELL FOR THE REST OF THE SHIFT. PATIENT DENIES ANY SI, CURRENTLY MONITORED REMOTLEY. PATIENT WILL NOT WEAR SCD'S HE WALKS FREQUENTLY AROUND THE ROOM. LABS IMPROVING, VSS, BED LOW AND LOCKED AND CALL LIGHT WITHIN REACH AND USED APPROPRIATLY.
--- NOTE | 2019-07-09 07:42 | NUR ---
Bedside report received from Josselin Pérez RN.. The pt appears to be sleeping at this time.
--- NOTE | 2019-07-09 10:23 | NUR ---
Pt states that he has indigestion this morning. STates that he is having pain in his stomach, which is sharp, constant pain which increases with deep inspiration. C/O nausea, pain, and feeling dizzy. STates that he went into the bathroom to try and pass gas, but was unsuccessful. STates he did have a very small bowel movement this morning. He is lying on his left side in the bed. Medicated with zofran for nausea and stomach upset at this time.
--- NOTE | 2019-07-09 10:41 | NUR ---
Avery complained of worsening stomach pain. States that it goes from his left chest, to epigastric area, and down to his lower midline abdominal area. He states that it is sharp, constant pain and increases with deep inspiration. States that he is also having nausea and dizzyness. Vital signs taken. No increased withdrawl symptoms. Able to walk into the bathroom independently earlier. Vital signs are stable. Medicated with zofran and pt encouraged to rest on his left side; instructed to call if the pain worsens or does not get better.
--- NOTE | 2019-07-09 11:17 | NUR ---
Call to Dr. Lopez regarding pt's pain. New order for one time IV dilaudid received.
--- NOTE | 2019-07-09 12:51 | NUR ---
After receiving the zofran and the Tylenol this morning, the pt stated that his nausea, dizzyness and abdominal pain have resolved. Several times he has mentioned that he is scheduled to see his doctor this week in order to re-evaluate the possiblity of re-prescribing Adderal for him. States that he has abused it in the past by taking them too frequently. States he does not use the alcohol when he is taking Adderal, and that the medication helps to give him adequate motivation and energy for daily activities. His is willing to help monitor his use of the medication at home, so he hopes to have it re-prescribed. States that he has also used Ritalin in the past. He requested that the hospitalist prescribe it for him, but based on what he had explained to me, his prescription is being managed by his PCP and on the verge of being reinstated, with a hope to restore better compliance on his part and trust between himself and his outpatient provider.
--- NOTE | 2019-07-09 15:13 | NUR ---
Avery is lying in bed, appears calm and without any noted anxiety/distress/discomfort. STates he is still having some nausea. Would like to sip on some diet Pepsi to settle his stomach. This was provided for him at this time. Vital signs stable.
--- NOTE | 2019-07-09 15:32 | NUR ---
Spiritual care visit conducted. Because therapeutic alliance is already established patient tells me about his personal struggles with relationships and addiction and about his medical and persciption issues. I listen empathically, normalize patient's experience encourage self-care, heard confession and provide pastoral patent counsel and prayer. Patient responds well and shows signs of catharsis and improved peace. I will continue to remain available to patient and family.
--- NOTE | 2019-07-09 18:19 | NUR ---
The pt requested zofran and tylenol again this evening for nausea as well as ongoing pain in his epigastric and abdominal area. This resolved after the Tylenol, and he was able to eat dinner.
--- NOTE | 2019-07-10 03:50 | NUR ---
SHIFT SUMMARY: PATIENT COMPLIANT WITH CARE, CALLING APPROPRIATLY, DENIES SI AT THIS TIME. PATIENT C/O GASTRIC DICOMFORT, RELIEVED WITH ZOFRAN. NO OTHER ISSUES NOTED, VSS, CALL LIGHT WITHIN REACH WITH BED LOW AND LOCKED.
[2019-07-10 04:34] LABS: Alanine Aminotransfer (ALT/SGP 272 U/L (12-78); Albumin, Blood 3.3 g/dL (3.4-5.0); Albumin/Globulin Ratio 0.8 (0.8-1.8); Alk Phos 137 U/L (50-136); Anion Gap 7 mmol/L (6-16); Aspartate Aminotrans (AST/SGOT 121 U/L (12-37); Bilirubin, Total 2.1 mg/dL (0.1-1.0); Blood Urea Nitrogen 13 mg/dL (8-24); Bun/Creatinine Ratio 18.6 (12.0-20.0); CO2, Blood 26 mmol/L (21-32); Calcium, Blood 8.2 mg/dL (8.5-10.1); Chloride, Blood 102 mmol/L (98-108); Globulin, Blood 3.9 g/dL (2.2-4.0); Glomerular Filtration Rate >60 (60-); Glucose, Blood 123 mg/dL (70-99); Potassium, Blood 3.6 mmol/L (3.5-5.5); Sodium, Blood 135 mmol/L (136-145); Total Protein, Blood 7.2 g/dL (6.4-8.2)
--- NOTE | 2019-07-10 07:59 | NUR ---
The pt is up in the room ad felice, without any apparent or verbalized difficulty. He is sitting on the side of the bed, eating his breakfast. States that his abdominal pain is much better than yesterday, now 3/10 in the upper abdomen, and up to the epigastric area.
[2019-07-10] MEDS ORDERED: PANT40 PO (10:40)
== END 2019-07-10 11:24 | disposition home or self-care (01) | DRG 442 ==
LOC: ER 20:46 → ICUW 07-08 00:48 → PCU 07-08 16:17
PROVIDERS: Internal Medicine; Physician Assistant; ADMIT Internal Medicine
DX: K72.00 Acute and subacute hepatic failure without coma (principal); R45.851 Suicidal ideations; F31.5 Bipolar disorder, current episode depressed, severe, with psychotic features; K70.30 Alcoholic cirrhosis of liver without ascites; K21.9 Gastro-esophageal reflux disease without esophagitis; F90.9 Attention-deficit hyperactivity disorder, unspecified type; B19.20 Unspecified viral hepatitis C without hepatic coma; I10 Essential (primary) hypertension
CPT/HCPCS: 36415; 70450; 80053; 81003; 82140; 83735; 85025; 85610; 93005; 93010; 99285-25; A9270; A9270-GY; C9113; G0480; J1170; J2060; J2405; J3411; J3475; J7042

== ENCOUNTER 2019-10-05 14:13 | Observation (INO) | payer MEDICARE, OTHER ==
[~2019-10-05] VITALS: Ht 188 cm; Wt 115.2 kg
[~2019-10-05 14:13] MED LIST changes: +PANT40 PO
[2019-10-05 14:46] LABS: BASOPHILS ABSOLUTE AUTO 0.12 K/mm3 (0.00-0.23); BASOPHILS PERCENT AUTO 1 % (0-2); EOSINOPHILS ABSOLUTE AUTO 0.08 K/mm3 (0.00-0.68); EOSINOPHILS PERCENT AUTO 1 % (0-6); Hematocrit 45.7 % (37.0-53.0); Hemoglobin 15.1 g/dL (13.5-17.5); IMMATURE GRAN ABSOLUTE AUTO 0.09 K/mm3 (0.00-0.10); IMMATURE GRAN PERCENT AUTO 1 % (0-1); LYMPHOCYTES ABSOLUTE AUTO 2.94 K/mm3 (0.84-5.20); LYMPHOCYTES PERCENT AUTO 23 % (21-46); MONOCYTES ABSOLUTE AUTO 0.85 K/mm3 (0.16-1.47); MONOCYTES PERCENT AUTO 7 % (4-13); Mean Corpuscular HGB 27.5 pg (26.0-34.0); Mean Corpuscular Volume 83 fL (80-100); Mean Platelet Volume 9.1 fL (9.1-12.4); NEUTROPHILS ABSOLUTE AUTO 8.58 K/mm3 (1.96-9.15); NEUTROPHILS PERCENT AUTO 68 % (41-73); Platelet Count 301 K/mm3 (150-400); RDW Coefficient Variation 14.4 % (11.7-14.2); RDW Standard Deviation 43.4 fL (35.1-46.3); White Blood Cell Count 12.66 K/mm3 (4.00-11.30)
[2019-10-05 15:03] LABS: Alanine Aminotransfer (ALT/SGP 73 U/L (12-78); Albumin, Blood 3.3 g/dL (3.4-5.0); Albumin/Globulin Ratio 0.8 (0.8-1.8); Alk Phos 126 U/L (50-136); Anion Gap 5 mmol/L (6-16); Aspartate Aminotrans (AST/SGOT 38 U/L (12-37); Bilirubin, Total 0.2 mg/dL (0.1-1.0); Blood Urea Nitrogen 6 mg/dL (8-24); Bun/Creatinine Ratio 8.7 (12.0-20.0); CO2, Blood 26 mmol/L (21-32); Calcium, Blood 8.5 mg/dL (8.5-10.1); Chloride, Blood 112 mmol/L (98-108); Creatinine, Blood 0.69 mg/dL (0.60-1.20); Ethanol (Alcohol), Blood, Med 260 mg/dL; Globulin, Blood 3.9 g/dL (2.2-4.0); Glomerular Filtration Rate >60 (60-); Glucose, Blood 232 mg/dL (70-99); Potassium, Blood 3.7 mmol/L (3.5-5.5); Salicylate <1.7 mg/dL (2.8-20.0); Sodium, Blood 143 mmol/L (136-145); Total Protein, Blood 7.2 g/dL (6.4-8.2)
[2019-10-05 15:06] LABS: Acetaminophen, Random <2.0 ug/mL (10.0-30.0)
[2019-10-05 16:34] LABS: Source, Urine Voided
[2019-10-05 16:39] LABS: Bilirubin, Urine Neg (Neg); Blood, Urine Neg (Neg); Glucose Qualitative, Urine Neg (Neg); Ketones, Urine Neg (Neg); Leukocyte Esterase, Urine Neg (Neg); Nitrite, Urine Neg (Neg); Protein, Urine Neg (Neg); Specific Gravity, Urine 1.015 (1.003-1.022); Urobilinogen, Urine NORM (Normal); pH, Urine 6.5 (5.0-8.0)
[2019-10-05 16:45] LABS: Appearance, Urine Clear (Clear); Color, Urine Yellow (P-Yellow)
[2019-10-05 16:49] LABS: U Amphetamine Screen Not Detected; U Barbituate Screen Not Detected; U Benzodiazapine Screen Not Detected; U Buprenorphine Screen Not Detected; U Cannabinoids Screen Not Detected; U Cocaine Screen Not Detected; U Methadone Screen Not Detected; U Methamphetamine Screen Not Detected; U Opiates Screen Not Detected; U Oxycodone Screen Not Detected; U Phencyclidine Screen Not Detected; U Propoxyphene Screen Not Detected
[2019-10-06] MEDS ORDERED: ARIP20 PO (09:52)
[2019-10-06] MEDS ORDERED: Adderall 5mg tab5 MG PO (09:53)
[2019-10-06] MEDS ORDERED: VENL75ER PO (09:54)
== END 2019-10-07 13:00 | disposition home or self-care (01) ==
LOC: ER 14:13 → EOR 14:14
PROVIDERS: Emergency Medicine; ADMIT Emergency Medicine
DX: F32.9 Major depressive disorder, single episode, unspecified (principal); F10.129 Alcohol abuse with intoxication, unspecified; K21.9 Gastro-esophageal reflux disease without esophagitis; Y90.8 Blood alcohol level of 240 mg/100 ml or more; Z79.899 Other long term (current) drug therapy
CPT/HCPCS: 80053; 81003; 85025; 99285; A9270-GY; G0378; G0480; Q3014

== ENCOUNTER 2019-11-22 14:40 | Emergency (ER) | payer MEDICARE ==
[~2019-11-22] VITALS: Ht 185.4 cm; Wt 108.9 kg
[~2019-11-22 14:40] MED LIST changes: +Adderall 5mg tab5 MG PO
[2019-11-22 15:13] LABS: BASOPHILS ABSOLUTE AUTO 0.13 K/mm3 (0.00-0.23); BASOPHILS PERCENT AUTO 1 % (0-2); EOSINOPHILS ABSOLUTE AUTO 0.25 K/mm3 (0.00-0.68); EOSINOPHILS PERCENT AUTO 3 % (0-6); Hematocrit 47.4 % (37.0-53.0); Hemoglobin 15.4 g/dL (13.5-17.5); IMMATURE GRAN ABSOLUTE AUTO 0.11 K/mm3 (0.00-0.10); IMMATURE GRAN PERCENT AUTO 1 % (0-1); LYMPHOCYTES PERCENT AUTO 31 % (21-46); MONOCYTES ABSOLUTE AUTO 0.69 K/mm3 (0.16-1.47); MONOCYTES PERCENT AUTO 7 % (4-13); Mean Corpuscular HGB 27.5 pg (26.0-34.0); Mean Corpuscular HGB Conc 32.5 g/dL (31.5-36.5); Mean Corpuscular Volume 85 fL (80-100); Mean Platelet Volume 9.3 fL (9.1-12.4); NEUTROPHILS ABSOLUTE AUTO 5.19 K/mm3 (1.96-9.15); NEUTROPHILS PERCENT AUTO 56 % (41-73); Platelet Count 254 K/mm3 (150-400); RDW Coefficient Variation 15.4 % (11.7-14.2); RDW Standard Deviation 46.9 fL (35.1-46.3); Red Blood Cell Count 5.59 M/mm3 (4.30-5.90); White Blood Cell Count 9.27 K/mm3 (4.00-11.30)
[2019-11-22 15:24] LABS: Source, Urine Clean Catch
[2019-11-22 15:41] LABS: Appearance, Urine Clear (Clear); Bilirubin, Urine Neg (Neg); Blood, Urine Neg (Neg); Color, Urine Yellow (P-Yellow); Glucose Qualitative, Urine Neg (Neg); Ketones, Urine Neg (Neg); Leukocyte Esterase, Urine Neg (Neg); Nitrite, Urine Neg (Neg); Protein, Urine Neg (Neg); Specific Gravity, Urine 1.015 (1.003-1.022); Urobilinogen, Urine NORM (Normal)
[2019-11-22 15:47] LABS: Alanine Aminotransfer (ALT/SGP 60 U/L (12-78); Albumin, Blood 3.4 g/dL (3.4-5.0); Albumin/Globulin Ratio 0.9 (0.8-1.8); Alk Phos 115 U/L (50-136); Anion Gap 5 mmol/L (6-16); Aspartate Aminotrans (AST/SGOT 47 U/L (12-37); Bilirubin, Total 0.2 mg/dL (0.1-1.0); Blood Urea Nitrogen 8 mg/dL (8-24); Bun/Creatinine Ratio 10.8 (12.0-20.0); CO2, Blood 26 mmol/L (21-32); Calcium, Blood 7.9 mg/dL (8.5-10.1); Chloride, Blood 112 mmol/L (98-108); Creatinine, Blood 0.74 mg/dL (0.60-1.20); Ethanol (Alcohol), Blood, Med 190 mg/dL; Globulin, Blood 3.8 g/dL (2.2-4.0); Glomerular Filtration Rate >60 (60-); Glucose, Blood 166 mg/dL (70-99); Potassium, Blood 4.1 mmol/L (3.5-5.5); Salicylate <1.7 mg/dL (2.8-20.0); Sodium, Blood 143 mmol/L (136-145); Thyroxine (T4) 5.7 ug/dL (4.5-12.1); Total Protein, Blood 7.2 g/dL (6.4-8.2)
[2019-11-22 15:48] LABS: Acetaminophen, Random <2.0 ug/mL (10.0-30.0)
[2019-11-22 16:00] LABS: U Amphetamine Screen Not Detected; U Barbituate Screen Not Detected; U Benzodiazapine Screen Not Detected; U Buprenorphine Screen Not Detected; U Cannabinoids Screen Not Detected; U Cocaine Screen Not Detected; U Methadone Screen Not Detected; U Methamphetamine Screen Not Detected; U Opiates Screen Not Detected; U Oxycodone Screen Not Detected; U Phencyclidine Screen Not Detected; U Propoxyphene Screen Not Detected
== END 2019-11-22 18:17 | disposition home or self-care (01) ==
LOC: ER 14:40
PROVIDERS: Emergency Medicine
DX: F10.229 Alcohol dependence with intoxication, unspecified (principal); K72.90 Hepatic failure, unspecified without coma; K21.9 Gastro-esophageal reflux disease without esophagitis; F31.9 Bipolar disorder, unspecified; F90.9 Attention-deficit hyperactivity disorder, unspecified type; K74.60 Unspecified cirrhosis of liver; Z91.14 Patient's other noncompliance with medication regimen; Z79.899 Other long term (current) drug therapy
CPT/HCPCS: 36415; 70450; 71045; 80053; 81003; 82140; 83690; 84436; 84443; 85025; 96360; 96361; 99285-25; G0480; J3411; J3475; J7042

== ENCOUNTER 2019-12-01 18:20 | Inpatient (IN) | payer MEDICARE ==
[~2019-12-01] VITALS: Ht 188 cm; Wt 116.6 kg
[2019-12-01 19:16] LABS: BASOPHILS ABSOLUTE AUTO 0.12 K/mm3 (0.00-0.23); BASOPHILS PERCENT AUTO 1 % (0-2); EOSINOPHILS ABSOLUTE AUTO 0.26 K/mm3 (0.00-0.68); EOSINOPHILS PERCENT AUTO 3 % (0-6); Hematocrit 45.8 % (37.0-53.0); Hemoglobin 14.8 g/dL (13.5-17.5); IMMATURE GRAN ABSOLUTE AUTO 0.04 K/mm3 (0.00-0.10); IMMATURE GRAN PERCENT AUTO 1 % (0-1); LYMPHOCYTES ABSOLUTE AUTO 2.73 K/mm3 (0.84-5.20); LYMPHOCYTES PERCENT AUTO 31 % (21-46); MONOCYTES ABSOLUTE AUTO 0.83 K/mm3 (0.16-1.47); MONOCYTES PERCENT AUTO 9 % (4-13); Mean Corpuscular HGB 27.9 pg (26.0-34.0); Mean Corpuscular HGB Conc 32.3 g/dL (31.5-36.5); Mean Corpuscular Volume 86 fL (80-100); Mean Platelet Volume 8.9 fL (9.1-12.4); NEUTROPHILS ABSOLUTE AUTO 4.81 K/mm3 (1.96-9.15); NEUTROPHILS PERCENT AUTO 55 % (41-73); Platelet Count 229 K/mm3 (150-400); RDW Coefficient Variation 16.9 % (11.7-14.2); RDW Standard Deviation 51.9 fL (35.1-46.3); Red Blood Cell Count 5.31 M/mm3 (4.30-5.90); White Blood Cell Count 8.79 K/mm3 (4.00-11.30)
[2019-12-01] MEDS ORDERED: Amphetamine Sal30 MG PO (19:32)
[2019-12-01 19:38] LABS: Alanine Aminotransfer (ALT/SGP 51 U/L (12-78); Albumin, Blood 3.5 g/dL (3.4-5.0); Albumin/Globulin Ratio 0.9 (0.8-1.8); Alk Phos 113 U/L (50-136); Anion Gap 11 mmol/L (6-16); Aspartate Aminotrans (AST/SGOT 37 U/L (12-37); Bilirubin, Total 0.2 mg/dL (0.1-1.0); Blood Urea Nitrogen 8 mg/dL (8-24); Bun/Creatinine Ratio 11.3 (12.0-20.0); CO2, Blood 22 mmol/L (21-32); Calcium, Blood 8.5 mg/dL (8.5-10.1); Chloride, Blood 112 mmol/L (98-108); Creatinine, Blood 0.71 mg/dL (0.60-1.20); Glomerular Filtration Rate >60 (60-); Glucose, Blood 190 mg/dL (70-99); Potassium, Blood 3.2 mmol/L (3.5-5.5); Salicylate <1.7 mg/dL (2.8-20.0); Sodium, Blood 145 mmol/L (136-145); Total Protein, Blood 7.5 g/dL (6.4-8.2)
[2019-12-01 19:55] LABS: Acetaminophen, Random <2.0 ug/mL (10.0-30.0); Ethanol (Alcohol), Blood, Med 315 mg/dL
[2019-12-01 20:02] LABS: Source, Urine Clean Catch
[2019-12-01 20:10] LABS: Appearance, Urine Clear (Clear); Bilirubin, Urine Neg (Neg); Blood, Urine Neg (Neg); Color, Urine Yellow (P-Yellow); Glucose Qualitative, Urine Neg (Neg); Ketones, Urine Neg (Neg); Leukocyte Esterase, Urine Neg (Neg); Nitrite, Urine Neg (Neg); Protein, Urine Neg (Neg); Specific Gravity, Urine 1.015 (1.003-1.022); Urobilinogen, Urine NORM (Normal)
[2019-12-01 20:43] LABS: U Amphetamine Screen Not Detected; U Barbituate Screen Not Detected; U Benzodiazapine Screen Not Detected; U Buprenorphine Screen Not Detected; U Cannabinoids Screen Not Detected; U Cocaine Screen Not Detected; U Methadone Screen Not Detected; U Methamphetamine Screen Not Detected; U Opiates Screen Not Detected; U Oxycodone Screen Not Detected; U Phencyclidine Screen Not Detected; U Propoxyphene Screen Not Detected
[2019-12-01] MEDS ORDERED: ARIP20 PO (22:25)
--- NOTE | 2019-12-01 23:32 | NUR ---
PATIENT ARRIVED TO ICU 3 AT 2208 FROM ED ON [facility]. ADMIT FOR SI AND 2 MD HOLD. MED NO TELE STATUS. PATIENT ABLE TO TRANSFER SELF TO BED. PATIENT TEARFUL OFF AND ON T/O ADMIT HX. VERBALIZING FEAR THAT HE HAS NIGHT TERRORS AND IS AFRAID TO HURT SOMEONE. PATIENT VERBALIZED THAT HE WAS GETTING SHAKY AND REQUESTING SOMETHING TO HELP HIM WITH HIS WITHDRAWALS. LIBRIUM PO GIVEN. DOCTOR LIDIA NOTIFIED OF POTASSIUM LEVEL, ORDER OBTAINED FOR PO KCL.
[2019-12-02 05:47] LABS: BASOPHILS ABSOLUTE AUTO 0.09 K/mm3 (0.00-0.23); BASOPHILS PERCENT AUTO 1 % (0-2); EOSINOPHILS ABSOLUTE AUTO 0.17 K/mm3 (0.00-0.68); EOSINOPHILS PERCENT AUTO 3 % (0-6); Hematocrit 45.9 % (37.0-53.0); Hemoglobin 14.5 g/dL (13.5-17.5); IMMATURE GRAN ABSOLUTE AUTO 0.03 K/mm3 (0.00-0.10); IMMATURE GRAN PERCENT AUTO 1 % (0-1); LYMPHOCYTES ABSOLUTE AUTO 2.02 K/mm3 (0.84-5.20); LYMPHOCYTES PERCENT AUTO 32 % (21-46); MONOCYTES ABSOLUTE AUTO 0.64 K/mm3 (0.16-1.47); MONOCYTES PERCENT AUTO 10 % (4-13); Mean Corpuscular HGB 27.7 pg (26.0-34.0); Mean Corpuscular HGB Conc 31.6 g/dL (31.5-36.5); Mean Corpuscular Volume 88 fL (80-100); Mean Platelet Volume 9.1 fL (9.1-12.4); NEUTROPHILS ABSOLUTE AUTO 3.46 K/mm3 (1.96-9.15); NEUTROPHILS PERCENT AUTO 54 % (41-73); Platelet Count 191 K/mm3 (150-400); RDW Coefficient Variation 16.8 % (11.7-14.2); RDW Standard Deviation 53.5 fL (35.1-46.3); Red Blood Cell Count 5.23 M/mm3 (4.30-5.90); White Blood Cell Count 6.41 K/mm3 (4.00-11.30)
[2019-12-02 05:59] LABS: Alanine Aminotransfer (ALT/SGP 62 U/L (12-78); Albumin, Blood 3.4 g/dL (3.4-5.0); Albumin/Globulin Ratio 0.9 (0.8-1.8); Alk Phos 109 U/L (50-136); Anion Gap 9 mmol/L (6-16); Aspartate Aminotrans (AST/SGOT 67 U/L (12-37); Bilirubin, Total 0.3 mg/dL (0.1-1.0); Blood Urea Nitrogen 8 mg/dL (8-24); Bun/Creatinine Ratio 12.1 (12.0-20.0); CO2, Blood 24 mmol/L (21-32); Calcium, Blood 8.8 mg/dL (8.5-10.1); Chloride, Blood 110 mmol/L (98-108); Creatinine, Blood 0.66 mg/dL (0.60-1.20); Globulin, Blood 3.9 g/dL (2.2-4.0); Glomerular Filtration Rate >60 (60-); Glucose, Blood 188 mg/dL (70-99); Potassium, Blood 3.4 mmol/L (3.5-5.5); Sodium, Blood 143 mmol/L (136-145); Total Protein, Blood 7.3 g/dL (6.4-8.2)
--- NOTE | 2019-12-02 06:45 | NUR ---
SUMMARY PATIENT SLEEPING OFF AND ON T/O THE NIGHT, AWAKE THIS MORNING C/O FEELING ANXIOUS AND FEELING IF HIS MIND IS RACING, ASKING FOR HIS ADDERALL, EXPLAINED TO PATIENT THAT BECAUSE WE ARE NOT SURE WHAT MEDICATIONS HE TOOK THE DOCTORS DID NOT ORDER HIS REGULAR MEDICATIONS. LIBRIUM PO GIVEN TO HELP PATIENT WITH HIS ALCOHOL WITHDRAW.
--- NOTE | 2019-12-02 08:45 | NUR ---
PT RESTING IN BED. WHEN ASKED ABOUT SUICIDAL IDEATION PT STATES NO JUST FEELING DEPRESSED AND SAD. PT IS A LITTLE ANXIOUS. GAVE LIBRIUM PER ORDERS. OFFERED ATIVAN THAT IS ORDERED BUT PT DECLINES. PT IS EAGER TO CONTINUE HIS HOME MEDICATIONS OF ABILIFY AND ADDERALL. AWAITING PSYCH EVAL TODAY. PT IS UP IN ROOM AD ZARIA. NO REQUESTS.
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
--- NOTE | 2019-12-02 10:57 | NUR ---
CALLED DR. LOMAX ABOUT PT'S HTN. NEW ORDERS FOR NORVASC DAILY. PT STATES HE USED TO TAKE MEDS FOR HTN BUT HAD QUIT TAKING THEM A FEW MONTHS AGO.
[2019-12-02] MEDS ORDERED: Naltrexone HCl50 MG PO (11:45)
[2019-12-02] MEDS ORDERED: VENL150ER PO (11:48)
[2019-12-02] MEDS ORDERED: VENLAFAXINE HCL75 M1 PO (11:49)
--- NOTE | 2019-12-02 13:43 | NUR ---
CALLED MD ABOUT PERSISTENT HTN. DR. PRO IS COVERING FOR DR. LOMAX AND WILL REVIEW THE CHART.
--- NOTE | 2019-12-02 18:13 | NUR ---
SUMMARY PT RESTING IN BED. NO COMPLAINTS. CIWA 4-[address] CUTLERUFF IN TO SEE PT THIS EVENING AND WANTS TO KEEP HIM ANOTHER NIGHT. PT DENIES SUICIDAL IDEATION JUST STATES HE IS DEPRESSED. STILL KEEPING 2 MD HOLD. HTN TODAY. NEW ORDERS FOR NORVASC AND LABETOLOL. BP CAME DOWN AFTER LABETOLOL. NO OTHER CHANGES, UP IN ROOM INDEP, NO SIGN OF DISTRESS.
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
--- NOTE | 2019-12-03 01:26 | NUR ---
PATIENT ARRIVED TO ROOM 348 FROM ICU AT 0110. A&OX4. VERY TALKATIVE AND ANXIOUS. ASKING FOR MEDS TO CALM HIMSELF DOWN. NO COMPLAINTS OF DISCOMFORT AT THIS TIME. WILL BRING MEDS IF ANY ARE AVAILABLE AT THIS TIME.
--- NOTE | 2019-12-03 07:58 | NUR ---
SWING TENDER SUMMARY Patient arrived here in the late evening from ICU 3. A&OX4, pleasant and cooperative and most concerned about making sure his home medications are being given on his home schedule. No complaints of pain. CIWA scores between 4-5 all night. Independent in room
--- NOTE | 2019-12-03 09:29 | NUR ---
ELEVATED HR: SPOKE WITH LINER REROLL TENDER Lucho COYNE. PATIENT IS CURRENTLY AT 130, SINUS TACH. PATIENT DENIES DISCOMFORT IN HIS CHEST. PATIENT REPORTS MILD ANXIETY AND TREMORS. PATIENT SITING AT SIDE OF THE BED. PATIENT SPEAKING WITH THE HOSPITALIST. REQUESTED THAT THE PROPERTY HANDLER CALL WITH CHANGES. NOTIFIED DR. LOMAX. WILL CONTINUE TO MONITOR HR.
--- NOTE | 2019-12-03 11:13 | NUR ---
ELEVATED HR: PATIENT CONTINUES TO BE SINUS TACH, WITH HR IN THE HIGH 120S AND LOW 130S PER PCU MAGNETIC TESTING TECHNICIAN. PATIENT CONTINUES TO SCORE LOW ON THE CIWA SCALE (2). PATIENT DENIES HIGH ANXIETY OR DISCOMFORT. NOTIFIED DR. LOMAX. NEW ORDERS TO FOLLOW.
--- NOTE | 2019-12-03 12:05 | NUR ---
NEW ORDERS: VERIFIED WITH DR. LOMAX THAT THE METOPROLOL SHOULD BE STARTED TODAY. VERIFIED WITH PHARMACY THAT THE ONLY WAY TO DELIEVER LR IS THROUGH A 1000 ML BAG (500 ML LR BAGS ARE NOT AVAILABLE IN THE FACILITY). ORDERS UPDATED.
--- NOTE | 2019-12-03 13:56 | NUR ---
ELEVATED HR: NOTIFIED DR. LOMAX THAT PATIENT'S HEART RATE CONTINUES TO BE SINUS TACH IN THE 130S (LAST TELEMETRY READING WAS 137). NO NEW ORDERS AT THIS TIME. PATIENT CONTINUES TO BE ASYMPTOMATIC, SITTING UP CALMLY AND COMFORTABLY AT THE BEDSIDE.
--- NOTE | 2019-12-03 14:04 | NUR ---
SPOKE TO DR VELASCO- PT HR PERSISTENT AT 130'S, METOPROLOL SUCCINATE INEFFECTIVE AT THIS TIME. OT DOSE OF METOPROLOL TARTRATE 25MG ORDERED.
--- NOTE | 2019-12-03 17:44 | NUR ---
BEHAVIORAL HEALTH VISIT: SPOKE WITH DR. LOMAX WHO EXPRESSED CONCERN THAT THE PATIENT HAD NOT BEEN SEEN BY DR. HARP YET THIS EVENING. CALLED DR. PATEL. HE REPORTED THAT FROM HIS STANDPOINT THE PATIENT IS READY FOR DISCHARGE. HE REPORTED THAT DR. LOMAX CAN DISCONTINUE THE INVOLUNTARY HOLD AND CALL HIM IF SHE HAS ANY QUESTIONS. THIS INFORMATION WAS RELAYED TO DR. LOMAX.
[2019-12-03] MEDS ORDERED: AMLO5 PO (18:13)
[2019-12-03] MEDS ORDERED: METO25ER PO (18:14)
[2019-12-03] MEDS ORDERED: TRAZ150T57 PO (18:14)
--- NOTE | 2019-12-03 18:34 | NUR ---
DISCHARGE: PATIENT DENIED PAIN OR DISCOMFORT THROUGHOUT SHIFT. PATIENT DENIED SUICIDAL IDEATION OR THOUGHTS OF SELF-HARM. PATIENT REPORTED THAT YESTERDAY HE WAS STILL FEELING HOPELESS, BUT THAT HE IS FEELING MUCH BETTER TO DAY AND LOOKING FORWARD TO IMPLEMENTING HIS SAFETY PLAN AND GETTING INVOLVED IN TREATMENT AND HIS ISLAM AGAIN. PROVIDED ENCOURAGEMENT AND SUPPORT FOR HIS PLAN. DISCUSSED THAT HE SHOULD NOT FEEL DISCOURAGED. PATIENT WAS CALM, COOPERATIVE AND APPRECIATIVE OF THE CARE HE HAD RECEIVED. PATIENT EXPERIENCED ELEVATED HR DURING SHIFT (SEE RN NOTES). MULTIPLE DISCUSSES WITH DR. LOMAX AND DR. VELASCO. BY AROUND 15:30, PATIENT'S HEART RATE STARTED TO TREND DOWN. BY DISCHARGE, PATIENT WAS IN MID 90'S NORMAL SINUS RHYTHM. CONTINUED TO DENY CHEST PAIN OR DISCOMFORT, SOB, DIZZINESS, OR REFERRED PAIN. INTO THE HOSPITAL TO ASSIST WITH DISCHARGE. DISCHARGE MEDICATION LIST FAXED TO [facility] PER PATIENT REQUEST. DISCHARGE EDUCATION AND INSTRUCTIONS PROVIDED. ALL QUESTIONS AND CONCERNS ADDRESSED. PATIENT WALKED OUT WITH AND RN, RACHID FARR PATIENT STABLE AT TIME OF DISCHARGE.
== END 2019-12-03 18:35 | disposition home or self-care (01) | DRG 918 ==
LOC: ER 18:20 → ICUW 20:54 → ICUE 20:54 → MEDS 12-03 01:15
PROVIDERS: Emergency Medicine; ADMIT Internal Medicine
DX: T50.912A Poisoning by multiple unspecified drugs, medicaments and biological substances, intentional self-harm, initial encounter (principal); F31.5 Bipolar disorder, current episode depressed, severe, with psychotic features; T14.91XA Suicide attempt, initial encounter; K21.9 Gastro-esophageal reflux disease without esophagitis; E66.9 Obesity, unspecified; Z68.33 Body mass index [BMI] 33.0-33.9, adult; F90.9 Attention-deficit hyperactivity disorder, unspecified type; F41.9 Anxiety disorder, unspecified; F10.10 Alcohol abuse, uncomplicated; I10 Essential (primary) hypertension; K74.60 Unspecified cirrhosis of liver; Y90.8 Blood alcohol level of 240 mg/100 ml or more; F11.10 Opioid abuse, uncomplicated; K72.90 Hepatic failure, unspecified without coma
CPT/HCPCS: 36415; 80053; 81003; 82140; 85025; 93005; 93010; 99285-25; A9270; A9270-GY; G0480; J7120

== ENCOUNTER 2019-12-16 18:24 | Observation (INO) | payer MEDICARE ==
[~2019-12-16] VITALS: Ht 188 cm; Wt 115.2 kg
[~2019-12-16 18:24] MED LIST changes: +METO25ER PO; +Naltrexone HCl50 MG PO; +VENL150ER PO; +VENLAFAXINE HCL75 M1 PO
[2019-12-16 19:07] LABS: BASOPHILS PERCENT AUTO 1 % (0-2); EOSINOPHILS ABSOLUTE AUTO 0.41 K/mm3 (0.00-0.68); EOSINOPHILS PERCENT AUTO 4 % (0-6); Hematocrit 48.1 % (37.0-53.0); Hemoglobin 15.5 g/dL (13.5-17.5); IMMATURE GRAN ABSOLUTE AUTO 0.15 K/mm3 (0.00-0.10); IMMATURE GRAN PERCENT AUTO 1 % (0-1); LYMPHOCYTES PERCENT AUTO 32 % (21-46); MONOCYTES ABSOLUTE AUTO 0.79 K/mm3 (0.16-1.47); MONOCYTES PERCENT AUTO 8 % (4-13); Mean Corpuscular HGB Conc 32.2 g/dL (31.5-36.5); Mean Corpuscular Volume 87 fL (80-100); Mean Platelet Volume 8.7 fL (9.1-12.4); NEUTROPHILS ABSOLUTE AUTO 5.61 K/mm3 (1.96-9.15); NEUTROPHILS PERCENT AUTO 54 % (41-73); Platelet Count 318 K/mm3 (150-400); RDW Coefficient Variation 15.2 % (11.7-14.2); RDW Standard Deviation 48.5 fL (35.1-46.3); Red Blood Cell Count 5.54 M/mm3 (4.30-5.90); White Blood Cell Count 10.36 K/mm3 (4.00-11.30)
[2019-12-16 19:39] LABS: Alanine Aminotransfer (ALT/SGP 63 U/L (12-78); Albumin, Blood 3.6 g/dL (3.4-5.0); Albumin/Globulin Ratio 0.9 (0.8-1.8); Alk Phos 111 U/L (50-136); Anion Gap 6 mmol/L (6-16); Aspartate Aminotrans (AST/SGOT 37 U/L (12-37); Bilirubin, Total 0.2 mg/dL (0.1-1.0); Blood Urea Nitrogen 7 mg/dL (8-24); Bun/Creatinine Ratio 9.9 (12.0-20.0); CO2, Blood 27 mmol/L (21-32); Calcium, Blood 8.7 mg/dL (8.5-10.1); Chloride, Blood 115 mmol/L (98-108); Ethanol (Alcohol), Blood, Med 293 mg/dL; Free Thyroxine 0.77 ng/dL (0.70-1.60); Glomerular Filtration Rate >60 (60-); Glucose, Blood 129 mg/dL (70-99); Potassium, Blood 3.8 mmol/L (3.5-5.5); Salicylate <1.7 mg/dL (2.8-20.0); Sodium, Blood 148 mmol/L (136-145); Total Protein, Blood 7.6 g/dL (6.4-8.2)
[2019-12-16 20:34] LABS: Acetaminophen, Random <2.0 ug/mL (10.0-30.0)
[2019-12-16] MEDS ORDERED: Adderall 30 MG30 MG PO (21:54)
[2019-12-16 21:55] LABS: U Amphetamine Screen Not Detected; U Barbituate Screen Not Detected; U Benzodiazapine Screen DETECTED; U Buprenorphine Screen Not Detected; U Cannabinoids Screen Not Detected; U Cocaine Screen Not Detected; U Methadone Screen Not Detected; U Methamphetamine Screen Not Detected; U Opiates Screen Not Detected; U Oxycodone Screen Not Detected; U Phencyclidine Screen Not Detected; U Propoxyphene Screen Not Detected
--- NOTE | 2019-12-16 23:45 | NUR ---
ADMIT NOTE PT ARRIVED VIA GURNEY, MOVED TO ICU BED VIA DRAWSHEET. PT HIGH SUICIDE RISK WITH 1:1 OBSERVATION. SHANNON CR OBSERVING PT. SOMNOLENT UPON ARRIVAL, AWAKENS EASILY WITH VERBAL STIMULATION, QUICKLY BACK TO SLEEP. ALERT TO PERSON AND PLACE. COOPERATIVE AT THIS TIME. NORMAL SINUS ON THE LOCAL AREA NETWORK ADMINISTRATOR. WILL CONTINUE TO MONITOR CLOSELY.
--- NOTE | 2019-12-17 01:30 | NUR ---
POISON CONTROL UPDATED POISON CONTROL OF PTS CONDITION. DISCUSSED S&S OF ANTICHOLINERGIC OVERDOSE. PT NOT SHOWING SIGNS AT THIS TIME. ADVISED TO CONTACT POISON CONTROL IF QUESTIONS ARISE.
[2019-12-17 03:23] LABS: BASOPHILS ABSOLUTE AUTO 0.13 K/mm3 (0.00-0.23); BASOPHILS PERCENT AUTO 2 % (0-2); EOSINOPHILS ABSOLUTE AUTO 0.38 K/mm3 (0.00-0.68); EOSINOPHILS PERCENT AUTO 5 % (0-6); Hematocrit 45.9 % (37.0-53.0); Hemoglobin 14.8 g/dL (13.5-17.5); IMMATURE GRAN ABSOLUTE AUTO 0.11 K/mm3 (0.00-0.10); IMMATURE GRAN PERCENT AUTO 1 % (0-1); LYMPHOCYTES ABSOLUTE AUTO 2.71 K/mm3 (0.84-5.20); LYMPHOCYTES PERCENT AUTO 35 % (21-46); MONOCYTES ABSOLUTE AUTO 0.47 K/mm3 (0.16-1.47); MONOCYTES PERCENT AUTO 6 % (4-13); Mean Corpuscular HGB 28.1 pg (26.0-34.0); Mean Corpuscular HGB Conc 32.2 g/dL (31.5-36.5); Mean Corpuscular Volume 87 fL (80-100); Mean Platelet Volume 8.7 fL (9.1-12.4); NEUTROPHILS ABSOLUTE AUTO 3.92 K/mm3 (1.96-9.15); NEUTROPHILS PERCENT AUTO 51 % (41-73); Platelet Count 287 K/mm3 (150-400); RDW Coefficient Variation 15.3 % (11.7-14.2); RDW Standard Deviation 49.3 fL (35.1-46.3); Red Blood Cell Count 5.27 M/mm3 (4.30-5.90); White Blood Cell Count 7.72 K/mm3 (4.00-11.30)
[2019-12-17 03:41] LABS: Alanine Aminotransfer (ALT/SGP 57 U/L (12-78); Albumin, Blood 3.2 g/dL (3.4-5.0); Albumin/Globulin Ratio 0.8 (0.8-1.8); Alk Phos 109 U/L (50-136); Anion Gap 5 mmol/L (6-16); Aspartate Aminotrans (AST/SGOT 35 U/L (12-37); Bilirubin, Total 0.2 mg/dL (0.1-1.0); Blood Urea Nitrogen 7 mg/dL (8-24); CO2, Blood 27 mmol/L (21-32); Calcium, Blood 8.1 mg/dL (8.5-10.1); Chloride, Blood 114 mmol/L (98-108); Globulin, Blood 3.8 g/dL (2.2-4.0); Glomerular Filtration Rate >60 (60-); Glucose, Blood 138 mg/dL (70-99); Potassium, Blood 3.7 mmol/L (3.5-5.5); Sodium, Blood 146 mmol/L (136-145)
--- NOTE | 2019-12-17 05:32 | NUR ---
SHIFT SUMMARY PT REMAINS ALERT TO PERSON AND PLACE. PT DEVELOPED TREMOR AND ANXIETY DUE TO INCREASED CIWA, TREATED c PRN ATIVAN. PT REMAINS WITH 1:1 SITTER AND REMOTE MONITORING. DUE TO HIGH SI RISK. NO OTHER SIGNIFICANT CHANGES DURING THE MORNING.
--- NOTE | 2019-12-17 09:59 | NUR ---
POISON CONTROL CALLED FOR STATUS UPDATE.
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
--- NOTE | 2019-12-17 14:35 | NUR ---
DR HARP IN TO SEE PT AFTER DR HARP WAS DONE SEEING PT, PT ASKED THAT BE CALLED TO INFORM HER HE'D BE STAYING ANOTHER NIGHT. WHEN SPOKE TO , MARTHA, SHE STATED SHE HAD "NO IDEA WHAT'S GOING ON" AND PT HAD "BEEN MISSING SINCE YESTERDAY." WITH PT'S PERMISSION, I GAVE MARTHA AN UPDATE ON WHY PT HAD BEEN ADMITTED TO HOSPITAL AND WHAT ROOM PT IS IN.
--- NOTE | 2019-12-17 15:39 | NUR ---
Patient is sitting up in bed and alert. Patient tells me about his suicide attempt, his addiction to alcohol and the events that led to his hospitalization. Patient has a rough road ahead in dealing with his thoughts and the results of his behaviors. We talk about what it might look like to live different and how he might go about that and what resources he might pull in. Patient shares personal information. I reinforce helpful attitudes and provide therapeutic listening, pastoral pre parole counseling aide and prayer. Patient responds well and shows signs of some resolve. I will continue to remain available to patient and family.
--- NOTE | 2019-12-17 15:50 | NUR ---
CALLED DR HERRERA AND DISCUSSED BP. DR HERRERA WILL REVIEW.
--- NOTE | 2019-12-17 17:19 | NUR ---
SUMMARY PT HAS BEEN PLEASANT AND COOPERATIVE T/O SHIFT. STATUS CHANGED FROM 1:1 TO MODERATE THIS AFTERNOON. PT HAS BEEN HYPERTENSIVE; REC'D HOME MEDS. DISCUSSED W/DR HERRERA; ORDERS PENDING. BERTHA STABLE. PT SPOKE W/SPINNING LATHE OPERATOR HYDRAULIC THIS AFTERNOON. PT VOIDED AND HAD BM. TOLERATING PO. STEADY ON FEET. CALL LIGHT IN REACH/USES APPROPRIATELY.
--- NOTE | 2019-12-18 12:00 | NUR ---
LET DR HOLLIS KNOW THAT PT WAS COMPLAINING OF LEFT SHOULDER PAIN AND SWELLING WAS NOTED TO LEFT SUPRACLAVICULAR SPACE. ICE AND TYLENOL PROVIDED WITH RELIEF. NO FURTHER ORDERS AT THIS TIME.
--- NOTE | 2019-12-18 12:10 | NUR ---
Safety Plan not completed as psychiatrist has ordered transfer to higher level of care for inpatient psychiatric treatment.
[2019-12-18 13:04] LABS: Albumin, Blood 3.3 g/dL (3.4-5.0); Anion Gap 5 mmol/L (6-16); Blood Urea Nitrogen 14 mg/dL (8-24); Bun/Creatinine Ratio 16.5 (12.0-20.0); CO2, Blood 29 mmol/L (21-32); Calcium, Blood 9.1 mg/dL (8.5-10.1); Chloride, Blood 105 mmol/L (98-108); Creatinine, Blood 0.85 mg/dL (0.60-1.20); Glomerular Filtration Rate >60 (60-); Glucose, Blood 162 mg/dL (70-99); Magnesium, Blood 2.3 mg/dL (1.6-2.4); Phosphorus, Blood 4.2 mg/dL (2.5-4.9); Sodium, Blood 139 mmol/L (136-145)
--- NOTE | 2019-12-18 14:24 | NUR ---
PT REQUESTED THAT THIS RN CALL HIS AND GIVE HER AN UPDATE. AWARE THAT PT WANTS HER TO COME STRETCHER LEVELER OPERATOR HELPER HIS KEYS FOR HIS TRUCK AND TO GET HIS PRESCRIPTION FROM [facility]. DR HARP CAME TO SEE PT AND STATES HE DOES NOT WANT A 2 MD HOLD AND THAT PT IS COOPERATIVE WITH PLAN FOR INPATIENT PSYCH. LAUNDRY WORKER AWARE
--- NOTE | 2019-12-18 15:21 | NUR ---
Patient tells me that he may be going to a mental health facility and that he has sent word to his his that this might be the case. Patient then tells me the same information as he did the day before still getting lost in details and still owning very little of his actions. I encourage reflection and self examination and provide pastoral senior counsel commercial and prayer. Patient voices appreciation for the visit
--- NOTE | 2019-12-18 16:40 | NUR ---
PT'S ARRIVED FOR PT'S TRUCK FERNANDEZ. OFFERED TO GIVE HER HIS BELONGINGS BUT PT AND REFUSED. WANT BELONGINGS TO GO WITH PT TO [facility]. KARLEY PLANNING CALLING [facility] TO CHECK ON PLACEMENT ARRANGEMENTS
--- NOTE | 2019-12-18 17:35 | NUR ---
SHIFT SUMMARY: AWAITING CALL FROM [facility] FOR TRANSFER. PT'S CAME TO SEE HIM AND IS AWARE OF TRANSFER. WHEN THIS RN ASKED PT HOW HIS VISIT WITH WENT HE SAID "IT'S NOT OVER," MEANING HIS MARRIAGE. HE SAID SHE TOLD HIM HE HAD TO PROVE HIMSELF THAT HE WAS GOING TO STOP DRINKING AND STOP WITH THE SUICIDE ATTEMPTS AND FOR 6 MONTHS SHE WAS GOING TO LIVE AT HER FATHER'S UNTIL HE PROVES HIMSELF TO HER. ASKED HIM HOW HE FELT ABOUT THAT. PT STATED "I'LL TAKE IT. 6 MONTHS IS BETTER THAN A DIVORCE." PT APPEARS MOTIVATED TO SEEK HELP AND IS IN GOOD SPIRITS AT THIS TIME.
--- NOTE | 2019-12-18 20:45 | NUR ---
INTAL SHIFT ASSESSMENT PT IS ALERT IN HIS ROOM SITTING UP IN BED WATCHING TV. PT DENIES ANY PAIN AT THIS TIME OR DISCOMFORT. DISCUSSED WITH HIM GOING POSSIBLY TO [facility] OR IN THE AM. PT STATES THAT HE IS WANTING TO GO TO GET HELP. PT'S VITALS WERE TAKEN. PT IS NOT ON TELE AT THIS TIME. STATES HE DIES NOT NEED MUCH AT NIGHT. HE WAS GIVEN SPRITE WITH HIS TRAZADONE AT HS AND SWALLOWED HIS PILLS WITH NO ISSUES. HE DENIES WANTING TO HURT HIMSELF AT THIS TIME. MINIMAL S/S OF ETOH WITHDRAWAL. WILL CON'T TO MONITOR AND KEEP PT SAFE T/O REMAINDER OF SHIFT.
--- NOTE | 2019-12-18 21:37 | NUR ---
SHIFT UPDATE CALLED [facility] TO SCHEDULE A TIME FOR PT TO TRANSFER. HE WILL TRANSFER AT [address] VALERIO WAS CALLED AND HE FILLED OUT PAPERS FOR TRANSFERING HIM IN AM.
--- NOTE | 2019-12-19 06:09 | NUR ---
SHIFT SUMMARY PT HAS BEEN RESTING FOR MOST OF THE NIGHT. HE STATES THIS AM THAT HE FEELS VERY RESTED AND THAT HE SLEPT WELL. VITALS ARE STABLE THIS AM. PT HAS NO COMPLAINTS THIS AM. STATES HE IS READY TO TRANSFER AND GET MORE HELP. PT TOOK HIS AM MEDS WITH NO ISSUES. WILL CON'T TO MONITOR AND KEEP PT SAFE TILL REPORT TO ONCOMING RN.
[2019-12-19] MEDS ORDERED: CHLO25 (09:49)
[2019-12-19] MEDS ORDERED: ARIP20 PO (09:49)
[2019-12-19] MEDS ORDERED: B-1100 M1 PO (09:49)
[2019-12-19] MEDS ORDERED: VENL75ER (09:50)
== END 2019-12-19 10:00 ==
LOC: ER 18:24 → ICUW 18:25
PROVIDERS: Family Medicine; Physician Assistant; ADMIT Internal Medicine
DX: T45.0X2A Poisoning by antiallergic and antiemetic drugs, intentional self-harm, initial encounter (principal); F10.239 Alcohol dependence with withdrawal, unspecified; F31.9 Bipolar disorder, unspecified; F90.9 Attention-deficit hyperactivity disorder, unspecified type; I10 Essential (primary) hypertension; K21.9 Gastro-esophageal reflux disease without esophagitis; K76.0 Fatty (change of) liver, not elsewhere classified; B19.20 Unspecified viral hepatitis C without hepatic coma; Z23 Encounter for immunization; Z20.828 Contact with and (suspected) exposure to other viral communicable diseases; Z79.899 Other long term (current) drug therapy; Y90.8 Blood alcohol level of 240 mg/100 ml or more
CPT/HCPCS: 36415; 80053; 80069; 82140; 83735; 84439; 84443; 85025; 93005; 93010; 96372; 96374; 96375; 96376; 99285-25; A9270; G0378; G0480; J1650; J2060; J2310; J2405; J3411; J3475; J7042; U0003

== ENCOUNTER 2020-03-05 15:36 | Observation (INO) | payer MEDICARE ==
[~2020-03-05] VITALS: Ht 188 cm; Wt 113.4 kg
[~2020-03-05 15:36] MED LIST changes: +Adderall 30 MG30 MG PO; +B-1100 M1 PO; +CHLO25
[2020-03-05 16:21] LABS: Source, Urine Voided
[2020-03-05 16:23] LABS: Bilirubin, Urine Neg (Neg); Blood, Urine Neg (Neg); Glucose Qualitative, Urine Neg (Neg); Ketones, Urine Neg (Neg); Leukocyte Esterase, Urine Neg (Neg); Nitrite, Urine Neg (Neg); Protein, Urine Neg (Neg); Urobilinogen, Urine NORM (Normal)
[2020-03-05 16:29] LABS: Appearance, Urine Clear (Clear); Color, Urine Pale Yellow (P-Yellow)
[2020-03-05 16:32] LABS: BASOPHILS ABSOLUTE AUTO 0.16 K/mm3 (0.00-0.23); BASOPHILS PERCENT AUTO 2 % (0-2); EOSINOPHILS ABSOLUTE AUTO 0.33 K/mm3 (0.00-0.68); EOSINOPHILS PERCENT AUTO 3 % (0-6); Hemoglobin 15.3 g/dL (13.5-17.5); IMMATURE GRAN ABSOLUTE AUTO 0.07 K/mm3 (0.00-0.10); IMMATURE GRAN PERCENT AUTO 1 % (0-1); LYMPHOCYTES ABSOLUTE AUTO 3.63 K/mm3 (0.84-5.20); LYMPHOCYTES PERCENT AUTO 33 % (21-46); MONOCYTES PERCENT AUTO 7 % (4-13); Mean Corpuscular HGB 28.3 pg (26.0-34.0); Mean Corpuscular HGB Conc 33.3 g/dL (31.5-36.5); Mean Corpuscular Volume 85 fL (80-100); NEUTROPHILS ABSOLUTE AUTO 5.97 K/mm3 (1.96-9.15); NEUTROPHILS PERCENT AUTO 55 % (41-73); Platelet Count 293 K/mm3 (150-400); RDW Coefficient Variation 13.9 % (11.7-14.2); RDW Standard Deviation 43.1 fL (35.1-46.3); White Blood Cell Count 10.96 K/mm3 (4.00-11.30)
[2020-03-05 16:33] LABS: U Amphetamine Screen Not Detected; U Barbituate Screen Not Detected; U Benzodiazapine Screen Not Detected; U Buprenorphine Screen Not Detected; U Cannabinoids Screen Not Detected; U Cocaine Screen Not Detected; U Methadone Screen Not Detected; U Methamphetamine Screen Not Detected; U Opiates Screen Not Detected; U Oxycodone Screen Not Detected; U Phencyclidine Screen Not Detected; U Propoxyphene Screen Not Detected
[2020-03-05 16:49] LABS: Alanine Aminotransfer (ALT/SGP 60 U/L (12-78); Albumin, Blood 3.5 g/dL (3.4-5.0); Albumin/Globulin Ratio 0.9 (0.8-1.8); Alk Phos 123 U/L (50-136); Anion Gap 9 mmol/L (6-16); Aspartate Aminotrans (AST/SGOT 20 U/L (12-37); Bilirubin, Total 0.2 mg/dL (0.1-1.0); Blood Urea Nitrogen 9 mg/dL (8-24); CO2, Blood 25 mmol/L (21-32); Calcium, Blood 8.3 mg/dL (8.5-10.1); Chloride, Blood 110 mmol/L (98-108); Creatinine, Blood 0.69 mg/dL (0.60-1.20); Ethanol (Alcohol), Blood, Med 270 mg/dL; Globulin, Blood 4.1 g/dL (2.2-4.0); Glomerular Filtration Rate >60 (60-); Glucose, Blood 139 mg/dL (70-99); Potassium, Blood 3.5 mmol/L (3.5-5.5); Salicylate <1.7 mg/dL (2.8-20.0); Sodium, Blood 144 mmol/L (136-145); Total Protein, Blood 7.6 g/dL (6.4-8.2)
[2020-03-05 17:02] LABS: Acetaminophen, Random <2.0 ug/mL (10.0-30.0)
[2020-09-14] MEDS ORDERED: METO25ER PO (09:48)
== END 2020-03-06 11:02 | disposition home or self-care (01) ==
LOC: ER 15:36 → EOR 15:37
PROVIDERS: ADMIT Emergency Medicine
DX: F32.9 Major depressive disorder, single episode, unspecified (principal); R45.851 Suicidal ideations; K21.9 Gastro-esophageal reflux disease without esophagitis; F90.9 Attention-deficit hyperactivity disorder, unspecified type; Z79.899 Other long term (current) drug therapy
CPT/HCPCS: 80053; 81003; 85025; 99285; A9270; G0378; G0480; Q3014

== ENCOUNTER 2020-03-22 18:14 | Observation (INO) | payer MEDICARE ==
[~2020-03-22] VITALS: Ht 188 cm; Wt 115.7 kg
[2020-03-22 19:30] LABS: BASOPHILS ABSOLUTE AUTO 0.15 K/mm3 (0.00-0.23); BASOPHILS PERCENT AUTO 1 % (0-2); EOSINOPHILS ABSOLUTE AUTO 0.38 K/mm3 (0.00-0.68); EOSINOPHILS PERCENT AUTO 4 % (0-6); Hematocrit 47.9 % (37.0-53.0); Hemoglobin 15.6 g/dL (13.5-17.5); IMMATURE GRAN ABSOLUTE AUTO 0.04 K/mm3 (0.00-0.10); IMMATURE GRAN PERCENT AUTO 0 % (0-1); LYMPHOCYTES ABSOLUTE AUTO 3.93 K/mm3 (0.84-5.20); LYMPHOCYTES PERCENT AUTO 37 % (21-46); MONOCYTES ABSOLUTE AUTO 0.92 K/mm3 (0.16-1.47); MONOCYTES PERCENT AUTO 9 % (4-13); Mean Corpuscular HGB Conc 32.6 g/dL (31.5-36.5); Mean Corpuscular Volume 86 fL (80-100); Mean Platelet Volume 9.1 fL (9.1-12.4); NEUTROPHILS ABSOLUTE AUTO 5.27 K/mm3 (1.96-9.15); NEUTROPHILS PERCENT AUTO 49 % (41-73); Platelet Count 316 K/mm3 (150-400); RDW Coefficient Variation 14.6 % (11.7-14.2); RDW Standard Deviation 45.4 fL (35.1-46.3); Red Blood Cell Count 5.58 M/mm3 (4.30-5.90); White Blood Cell Count 10.69 K/mm3 (4.00-11.30)
[2020-03-22 19:41] LABS: Alanine Aminotransfer (ALT/SGP 47 U/L (12-78); Albumin, Blood 3.7 g/dL (3.4-5.0); Albumin/Globulin Ratio 0.9 (0.8-1.8); Alk Phos 107 U/L (50-136); Anion Gap 9 mmol/L (6-16); Aspartate Aminotrans (AST/SGOT 26 U/L (12-37); Bilirubin, Total 0.2 mg/dL (0.1-1.0); Blood Urea Nitrogen 8 mg/dL (8-24); Bun/Creatinine Ratio 12.8 (12.0-20.0); CO2, Blood 23 mmol/L (21-32); Chloride, Blood 112 mmol/L (98-108); Creatinine, Blood 0.63 mg/dL (0.60-1.20); Ethanol (Alcohol), Blood, Med 247 mg/dL; Glomerular Filtration Rate >60 (60-); Glucose, Blood 197 mg/dL (70-99); Potassium, Blood 3.3 mmol/L (3.5-5.5); Sodium, Blood 144 mmol/L (136-145); Total Protein, Blood 7.7 g/dL (6.4-8.2)
[2020-03-22 19:42] LABS: U Amphetamine Screen Not Detected; U Barbituate Screen Not Detected; U Benzodiazapine Screen Not Detected; U Cocaine Screen Not Detected; U Methamphetamine Screen Not Detected
[2020-03-22 19:43] LABS: U Buprenorphine Screen Not Detected; U Cannabinoids Screen Not Detected; U Methadone Screen Not Detected; U Opiates Screen Not Detected; U Oxycodone Screen Not Detected; U Phencyclidine Screen Not Detected; U Propoxyphene Screen Not Detected
[2020-03-22 20:59] LABS: Influenza A, PCR Negative (NEGATIVE); Influenza B, PCR Negative (NEGATIVE); Resp Syncytial Virus, PCR Negative (NEGATIVE); SARS-Cov-2 (COVID-19) PCR, MMC Negative (NEGATIVE)
[2020-09-14] MEDS ORDERED: METO25ER PO (09:48)
== END 2020-03-23 09:28 | disposition home or self-care (01) ==
LOC: ER 18:14 → EOR 18:15
PROVIDERS: ADMIT Emergency Medicine
DX: F32.9 Major depressive disorder, single episode, unspecified (principal); F34.1 Dysthymic disorder; F10.129 Alcohol abuse with intoxication, unspecified; F43.9 Reaction to severe stress, unspecified; K21.9 Gastro-esophageal reflux disease without esophagitis; K74.60 Unspecified cirrhosis of liver; B19.20 Unspecified viral hepatitis C without hepatic coma; K22.6 Gastro-esophageal laceration-hemorrhage syndrome; F90.9 Attention-deficit hyperactivity disorder, unspecified type; Y90.8 Blood alcohol level of 240 mg/100 ml or more; Z79.899 Other long term (current) drug therapy
CPT/HCPCS: 0241U; 36415; 80053; 85025; 99285; A9270; G0378; G0480; Q3014

== ENCOUNTER 2020-03-26 19:12 | Emergency (ER) | payer MEDICARE ==
[~2020-03-26] VITALS: Ht 188 cm; Wt 115.7 kg
[2020-09-14] MEDS ORDERED: METO25ER PO (09:48)
== END 2020-03-26 22:29 | disposition home or self-care (01) ==
LOC: ER 19:12
DX: F11.129 Opioid abuse with intoxication, unspecified (principal); F10.129 Alcohol abuse with intoxication, unspecified; R11.10 Vomiting, unspecified; R00.0 Tachycardia, unspecified; F31.9 Bipolar disorder, unspecified; F90.9 Attention-deficit hyperactivity disorder, unspecified type; Z79.899 Other long term (current) drug therapy
CPT/HCPCS: 36415; 93005; 93010; 96360; 99284-25; J7030

== ENCOUNTER 2020-04-20 10:22 | Observation (INO) | payer MEDICARE ==
[~2020-04-20] VITALS: Ht 182.9 cm; Wt 90.7 kg
[2020-04-20 14:37] LABS: Source, Urine Clean Catch
[2020-04-20 15:15] LABS: Appearance, Urine Clear (Clear); Blood, Urine 1+ (Neg); Color, Urine Yellow (P-Yellow); Glucose Qualitative, Urine Neg (Neg); Ketones, Urine 2+ (Neg); Leukocyte Esterase, Urine 1+ (Neg); Nitrite, Urine Neg (Neg); Protein, Urine 2+ (Neg); Specific Gravity, Urine 1.025 (1.003-1.022); Urobilinogen, Urine NORM (Normal)
[2020-04-20 15:22] LABS: BASOPHILS ABSOLUTE AUTO 0.13 K/mm3 (0.00-0.23); BASOPHILS PERCENT AUTO 2 % (0-2); EOSINOPHILS ABSOLUTE AUTO 0.05 K/mm3 (0.00-0.68); EOSINOPHILS PERCENT AUTO 1 % (0-6); Hematocrit 51.5 % (37.0-53.0); Hemoglobin 16.8 g/dL (13.5-17.5); IMMATURE GRAN ABSOLUTE AUTO 0.03 K/mm3 (0.00-0.10); IMMATURE GRAN PERCENT AUTO 0 % (0-1); LYMPHOCYTES ABSOLUTE AUTO 1.95 K/mm3 (0.84-5.20); LYMPHOCYTES PERCENT AUTO 22 % (21-46); MONOCYTES ABSOLUTE AUTO 0.14 K/mm3 (0.16-1.47); MONOCYTES PERCENT AUTO 2 % (4-13); Mean Corpuscular HGB 27.7 pg (26.0-34.0); Mean Corpuscular HGB Conc 32.6 g/dL (31.5-36.5); Mean Corpuscular Volume 85 fL (80-100); Mean Platelet Volume 8.7 fL (9.1-12.4); NEUTROPHILS ABSOLUTE AUTO 6.47 K/mm3 (1.96-9.15); NEUTROPHILS PERCENT AUTO 74 % (41-73); Platelet Count 380 K/mm3 (150-400); RDW Coefficient Variation 14.3 % (11.7-14.2); RDW Standard Deviation 44.5 fL (35.1-46.3); Red Blood Cell Count 6.06 M/mm3 (4.30-5.90); White Blood Cell Count 8.77 K/mm3 (4.00-11.30)
[2020-04-20 15:36] LABS: Bilirubin, Urine 2+ (Neg)
[2020-04-20 15:38] LABS: Bacteria Rare /hpf; Hyaline Casts 0-2 /lpf (0-2); Mucus Light (0-Heavy); Red Blood Cells, Urine Not Seen /hpf (0-2); Squamous Epithelial Cells Rare /hpf (Few); White Blood Cells, Urine 0-2 /hpf (0-5)
[2020-04-20 15:40] LABS: U Amphetamine Screen Not Detected; U Barbituate Screen Not Detected; U Benzodiazapine Screen Not Detected; U Buprenorphine Screen Not Detected; U Cannabinoids Screen Not Detected; U Cocaine Screen Not Detected; U Methadone Screen Not Detected; U Methamphetamine Screen Not Detected; U Opiates Screen Not Detected; U Oxycodone Screen Not Detected; U Phencyclidine Screen Not Detected; U Propoxyphene Screen Not Detected
[2020-04-20 15:59] LABS: Alanine Aminotransfer (ALT/SGP 46 U/L (12-78); Albumin, Blood 3.9 g/dL (3.4-5.0); Albumin/Globulin Ratio 0.8 (0.8-1.8); Alk Phos 121 U/L (50-136); Anion Gap 11 mmol/L (6-16); Aspartate Aminotrans (AST/SGOT 24 U/L (12-37); Bilirubin, Total 0.2 mg/dL (0.1-1.0); Blood Urea Nitrogen 10 mg/dL (8-24); Bun/Creatinine Ratio 12.8 (12.0-20.0); CO2, Blood 24 mmol/L (21-32); Calcium, Blood 9.1 mg/dL (8.5-10.1); Chloride, Blood 105 mmol/L (98-108); Creatinine, Blood 0.78 mg/dL (0.60-1.20); Ethanol (Alcohol), Blood, Med 249 mg/dL; Globulin, Blood 4.6 g/dL (2.2-4.0); Glomerular Filtration Rate >60 (60-); Glucose, Blood 152 mg/dL (70-99); Salicylate <1.7 mg/dL (2.8-20.0); Sodium, Blood 140 mmol/L (136-145); Total Protein, Blood 8.5 g/dL (6.4-8.2)
[2020-04-20 16:03] LABS: Acetaminophen, Random <2.0 ug/mL (10.0-30.0)
[2020-09-14] MEDS ORDERED: METO25ER PO (09:48)
== END 2020-04-22 10:21 | disposition home or self-care (01) ==
LOC: ER 10:22 → EOR 10:23 → ER 17:46 → EOR 17:46
PROVIDERS: Physician Assistant; ADMIT Emergency Medicine
DX: R45.851 Suicidal ideations (principal); F31.9 Bipolar disorder, unspecified; K21.9 Gastro-esophageal reflux disease without esophagitis; B19.20 Unspecified viral hepatitis C without hepatic coma; K74.60 Unspecified cirrhosis of liver; F90.9 Attention-deficit hyperactivity disorder, unspecified type; F10.10 Alcohol abuse, uncomplicated; F11.10 Opioid abuse, uncomplicated; Y90.8 Blood alcohol level of 240 mg/100 ml or more
CPT/HCPCS: 36415; 80053; 81001; 85025; 87086; 99285; A9270; G0378; G0480

== ENCOUNTER 2020-05-04 12:06 | Inpatient (IN) | payer MEDICARE ==
[~2020-05-04] VITALS: Ht 182.9 cm; Wt 117.7 kg
[2020-05-04 14:35] LABS: BASOPHILS ABSOLUTE AUTO 0.09 K/mm3 (0.00-0.23); BASOPHILS PERCENT AUTO 1 % (0-2); EOSINOPHILS ABSOLUTE AUTO 0.16 K/mm3 (0.00-0.68); EOSINOPHILS PERCENT AUTO 2 % (0-6); Hematocrit 48.1 % (37.0-53.0); Hemoglobin 15.8 g/dL (13.5-17.5); IMMATURE GRAN ABSOLUTE AUTO 0.03 K/mm3 (0.00-0.10); IMMATURE GRAN PERCENT AUTO 0 % (0-1); LYMPHOCYTES PERCENT AUTO 30 % (21-46); MONOCYTES PERCENT AUTO 6 % (4-13); Mean Corpuscular HGB 28.1 pg (26.0-34.0); Mean Corpuscular HGB Conc 32.8 g/dL (31.5-36.5); Mean Corpuscular Volume 85 fL (80-100); NEUTROPHILS ABSOLUTE AUTO 4.16 K/mm3 (1.96-9.15); NEUTROPHILS PERCENT AUTO 60 % (41-73); Platelet Count 296 K/mm3 (150-400); RDW Coefficient Variation 15.2 % (11.7-14.2); RDW Standard Deviation 46.4 fL (35.1-46.3); Red Blood Cell Count 5.63 M/mm3 (4.30-5.90); White Blood Cell Count 6.94 K/mm3 (4.00-11.30)
[2020-05-04 14:55] LABS: Alanine Aminotransfer (ALT/SGP 67 U/L (12-78); Albumin, Blood 3.4 g/dL (3.4-5.0); Albumin/Globulin Ratio 0.8 (0.8-1.8); Alk Phos 111 U/L (50-136); Anion Gap 8 mmol/L (6-16); Aspartate Aminotrans (AST/SGOT 48 U/L (12-37); Bilirubin, Total 0.3 mg/dL (0.1-1.0); Blood Urea Nitrogen 8 mg/dL (8-24); Bun/Creatinine Ratio 12.6 (12.0-20.0); CO2, Blood 25 mmol/L (21-32); Calcium, Blood 7.9 mg/dL (8.5-10.1); Chloride, Blood 114 mmol/L (98-108); Creatinine, Blood 0.64 mg/dL (0.60-1.20); Globulin, Blood 4.3 g/dL (2.2-4.0); Glomerular Filtration Rate >60 (60-); Glucose, Blood 120 mg/dL (70-99); Potassium, Blood 4.4 mmol/L (3.5-5.5); Salicylate <1.7 mg/dL (2.8-20.0); Sodium, Blood 147 mmol/L (136-145); Total Protein, Blood 7.7 g/dL (6.4-8.2)
[2020-05-04 14:56] LABS: Acetaminophen, Random <2.0 ug/mL (10.0-30.0); Ethanol (Alcohol), Blood, Med 322 mg/dL
[2020-05-04 15:31] LABS: Influenza A, PCR NEGATIVE (NEGATIVE); Influenza B, PCR NEGATIVE (NEGATIVE); Resp Syncytial Virus, PCR NEGATIVE (NEGATIVE); SARS-Cov-2 (COVID-19) PCR, MMC NEGATIVE (NEGATIVE)
[2020-05-04 16:52] LABS: Source, Urine Voided
[2020-05-04 17:08] LABS: Bilirubin, Urine Neg (Neg); Blood, Urine 1+ (Neg); Glucose Qualitative, Urine Neg (Neg); Ketones, Urine 1+ (Neg); Leukocyte Esterase, Urine 1+ (Neg); Nitrite, Urine Neg (Neg); Protein, Urine 1+ (Neg); Urobilinogen, Urine 1+ (Normal)
[2020-05-04 17:13] LABS: Appearance, Urine Clear (Clear); Color, Urine Amber (P-Yellow)
[2020-05-04 17:15] LABS: Bacteria Few /hpf; Squamous Epithelial Cells Few /hpf (Few)
[2020-05-04 17:16] LABS: Amorphous Light (0-Heavy); Mucus Heavy (0-Heavy)
[2020-05-04 17:22] LABS: U Amphetamine Screen Not Detected; U Barbituate Screen Not Detected; U Benzodiazapine Screen Not Detected; U Buprenorphine Screen Not Detected; U Cannabinoids Screen Not Detected; U Cocaine Screen Not Detected; U Methadone Screen Not Detected; U Methamphetamine Screen Not Detected; U Opiates Screen Not Detected; U Oxycodone Screen Not Detected; U Phencyclidine Screen Not Detected; U Propoxyphene Screen Not Detected
--- NOTE | 2020-05-06 05:00 | NUR ---
ASSUMED PT CARE FROM ED 0345 PT ADMITTED PCU STATUS SECONDARY TO ETOH WITHDRAWALS. PT ALERT AND ORIENTED X4 WITH CONFUSION NOTED AT TIMES. PT IS PLEASANT AND COOPERATIVE WITH CARES. STATES HE STILL HAS THOUGHTS OF HARMING HIMSELF; HOWEVER, HE HAS NO ACTIVE PLAN AND HAS NOT TRIED HARMING HIMSELF. PT TRIGGERED FOR A LOW RISK SUICIDE SEVERITY; CALLED DR. ASHTON FOR ORDERS, WHICH WERE ENTERED. CIWA OF 8; MEDICATED WITH LIBRIUM 25MG. BANANA BAG INFUSING AT 200 MLS/HR VIA 20G TO LEFT FOREARM. PT HAS GOTTEN OUT OF BED TWICE WITHOUT UTILIZING CALL LIGHT. PT EDUCATED ON IMPORTANCE OF UTILIZING CALL LIGHT FOR ASSISTANCE PRIOR TO TRANSFERRING. BED ALARM SET. WILL CONTINUE TO MONITOR UNTIL REPORT IS HANDED OFF TO ONCOMING RN.
[2020-05-06 07:46] LABS: Alanine Aminotransfer (ALT/SGP 61 U/L (12-78); Albumin, Blood 3.1 g/dL (3.4-5.0); Albumin/Globulin Ratio 0.9 (0.8-1.8); Alk Phos 101 U/L (50-136); Anion Gap 7 mmol/L (6-16); Aspartate Aminotrans (AST/SGOT 43 U/L (12-37); Bilirubin, Total 0.4 mg/dL (0.1-1.0); Blood Urea Nitrogen 15 mg/dL (8-24); Bun/Creatinine Ratio 16.6 (12.0-20.0); CO2, Blood 27 mmol/L (21-32); Calcium, Blood 8.4 mg/dL (8.5-10.1); Chloride, Blood 106 mmol/L (98-108); Globulin, Blood 3.4 g/dL (2.2-4.0); Glomerular Filtration Rate >60 (60-); Glucose, Blood 126 mg/dL (70-99); Potassium, Blood 3.8 mmol/L (3.5-5.5); Sodium, Blood 140 mmol/L (136-145); Total Protein, Blood 6.5 g/dL (6.4-8.2)
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
--- NOTE | 2020-05-06 19:44 | NUR ---
SHIFT SUMMARY: PT CONTINUES ALERT AND CONFUSED, PLEASANT AND COOPERATIVE T/OUT SHIFT. PT FOUND TO BE ATTEMPTING TO EXIT BED MULTIPLE TIMES W/OUT USING CALL LIGHT, MULTIPLE ATTEMPTS TO REDIRECT PT UNSUCCESSFULLY, PT PLACED IN RODERICK VEST FOR SAFETY. PT TOLERATED WELL T/OUT SHIFT, FOUND A FEW TIMES TO BE ATTEMPTING TO DISROBE BUT AGREEABLE TO BEING PLACED BACK IN VEST. PT MEDICATED PRN USING CIWA SCALE GUIDE. PT REQUIRED ATIVAN OFTEN THIS AM, BUT T/OUT THE AFTERNOON HAS BEEN CALM AND CONFUSED WITH INTERMITTENT AGITATION. REPORT HAS BEEN GIVEN TO SHAYE MANCINI TO ASSUME CARE OF PT.
--- NOTE | 2020-05-06 21:00 | NUR ---
ASSUMPTION OF CARE PT RESTING IN BED, ORIENTED TO SELF ONLY, PT IS POLITE AND COOPERATIVE BUT SIGNIFICANTLY CONFUSED. STS DATE IS FEB 05, 2020, BELIEVES HE IS AT [facility] FOR THE HANDICAPPED, MILDLY PARANOID, STS HIS EX IS HERE WITH HER BOYFRIENDS AND BELIEVES "THEY ARE ALL" MAKING FUN OF HIM. PT REPEATEDLY CALLED THIS ANTIQUE DEALER "ELDER" WHO IS APPARENTLY HIS COUNSELOR, REORIENTATION PROVIDED. REPORTS SI, DENIES CURRENT PLAN BUT STS "IT'S USUALLY SLEEPING PILLS", PER EVALUATION FROM ADMITTING PROVIDER AND PSYCHIATRIC EVAL, PT IS LOW RISK SUICIDE. PT INTERMITTENTLY RESTLESS IN BED, DISROBING FROM RODERICK VEST AND ATTEMPTING TO GET OUT OF BED. RODERICK READJUSTED NEEDED AND BED ALARM ON, PRN ATIVAN AND LIBRIUM ADMINISTERED INDICATED, SEE MAR.
--- NOTE | 2020-05-06 23:27 | NUR ---
ANXIETY PTS HR INCREASED TO 150'S, TO PTS ROOM AND PT IN A PANIC OVER EX-WIFES DAUGHTER. PT STS SOMETHING BAD HAPPENED, WHEN ASKED TO ELABORATE PT STS HE DOESN'T KNOW BUT "SHE'S SCREAMING, SOMETHING IS WRONG." ASSURED PT THAT I SPOKE WITH HIS EX- EARLIER THIS EVENING AND EVERYTHING WAS FINE. RE-ORIENTED PT TO LOCATION AND SITUATION, MEDICATED WITH 4MG ATIVAN. PT APPRECIATIVE OF CARE.
--- NOTE | 2020-05-07 04:00 | NUR ---
REPORT GIVEN TO KACY KHAN RN. PT RESTED WELL AFTER 2330 ADMINISTRATION OF ATIVAN. NO OTHER ACUTE CHANGES THIS SHIFT.
--- NOTE | 2020-05-07 06:28 | NUR ---
SHIFT SUMMAY I ASSUMED CARE OF THE PT AROUND 0430. PT WAS SLEEPING WITH VITALS STABLE. PT WAS IN STABLE ALCOHOL WITHDRAW T/O THE MORNING. PT WAS ALERT AND ORIENTED TO SELF, UNABLE TO ANSWER QUESTIONS APPROPRIATELY AND WAS CONFUSED. SPEECH WAS CLEAR AND SLOW TO RESPOND. PT FOLLOWING DIRECTIONS. CIWAS OF 9.
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
--- NOTE | 2020-05-07 08:46 | NUR ---
Spiritual care visit conducted. Patient tells me that he is "very sad" this day. Patient then reherses the conversations with his that upset him and his struggle to map out where to go after DC. His focus is on the faults of others and finding security and "happiness" in housing and vehicles. Patient continues to push away any discussion that deals with the deeper issues of his own heart and mind. I provide pastoral milieu counselor and prayer. Patient does not appear to show any evidence of movement forward in terms of dealing with the himself. I will continue to remain available to patient and family.
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
--- NOTE | 2020-05-07 19:29 | NUR ---
SHIFT SUMMARY: PATIENT XFR FROM ICU-15 THIS SHIFT. PT A&O; ANXIOUS; COOPERATIVE WITH CARE. CIWA SCORES ASSESSED AT 8-10 SINCE ARRIVAL ON MEDICAL; ATIVAN & LIBRIUM PRN TO ENSURE STABLE WITHDRAWAL. PT UP WITH SBA TO BATHROOM. NO C/O PAIN OR NAUSEA. DR AMANDA TAYLOR. REPORT GIVEN TO ONCOMING RN.
--- NOTE | 2020-05-07 20:17 | NUR ---
SUICIDE RISK: NO CHANGE IN RISK LEVEL AT THIS TIME. VEIWS SCORE IS 3 FOR ELEVATED BP, HR AND TEMP. NO TYLENOL OREDERED. PATIENT ALSO STATES HE TAKES ADDERALL BID, IT IS ORDERED QD. WILL CALL MD FOR ORDERS.
--- NOTE | 2020-05-08 05:02 | NUR ---
SHIFT SUMMARY: PATIENT IS A&O TO SELF AND TIME, UP TO THE BATHROOM WITH SBA, BED ALARM IS ON FOR SAFETY. PATIENT DENIES SUICIDE IDEATIONS AT THIS TIME. ETOH WITHDRAWL SCORE AT 1999 WAS 8. HIGH ANXIETY OBSERVED, BP AND HEART RATE ARE EFFECTED, TEMP. ALSO ELEVATED, CAUSING A VEIW SCORE OF 3. CONTENT CREATION MANAGER WAS NOTIFIED AND RECOMENED AN ORAL TEMP. WHICH WAS 99.1. ATIVAN 2MG WAS GIVEN FOR WITHDRAWL S/S WITH GOOD EFFECT. HR HAS REMAINED BELOW 90, BP AND TEMP. HAVE REMAINED WNL. PATIENT WAS ENCOURAGED AND ALLOWED TO VERBALIZE FEELINGS AND EMOTIONAL SUPPORT WAS GIVEN, PATIENT IS INSTRUCTED TO CALL FOR ASSISTANCE OOB, BED ALARM IS ON FOR SAFETY.
--- NOTE | 2020-05-08 17:02 | NUR ---
SHIFT SUMMARY PATIENT DENIES PAIN, NAUSEA, AND SHORTNESS OF BREATH. PATIENT DENIES CURRENT SUICIDAL IDEATION BUT REPORTS FEELING SAD AND DEPRESSED. PATIENT STATES HE WOULD LIKE TO ATTEND ADAPT AFTER DISCHARGE. UP INDEPENDENT IN ROOM. MEDICATED X1 FOR ANXIETY/WITHDRAWAL SYMTOMS WITH LIBRIUM. EATING AND DRINKING WELL. COOPERATIVE WITH CARE.
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
--- NOTE | 2020-05-09 07:04 | NUR ---
SHIFT SUMMARY: PATIENT IS A&O TO SELF, SURROUNDINGS AND PLACE. CONFUSED ON DATE, SPECIFICALLY THE MONTH, DAY AND YEAR. PATIENT REPORTED THE LAST ETOH DRINK HE HAD WAS ON THE DAY OF ADISSION, 05/04. CONFUSION TO DATE AND ANXIETY ARE OBSERVED BUT NO S/S OF DETOX. BED ALARM IS ON FOR FALL PREVENTION.
--- NOTE | 2020-05-09 16:57 | NUR ---
SHIFT SUMMARY PATIENT DENIES PAIN, NAUSEA, AND SHORTNESS OF BREATH. PATIENT UP INDEPENDENT IN ROOM. DENIES SUICIDAL IDEATION. REPORTS ANXIETY IS LESS TODAY. WALKED IN GALLAGHER BRIEFLY AND WATCHED TV MOST OF SHIFT. COOPERATIVE WITH CARE.
--- NOTE | 2020-05-10 04:10 | NUR ---
SUMMARY NO NEW ISSUES NOTED. PT QUIET AND WATCHED TV FOR MOST OF SHIFT. PT CURRENTLY SLEEPING AND IN NO DISTRESS. CALL LIGHT IN REACH.
[2020-05-10] MEDS ORDERED: ONDA4ODT MM (11:28)
[2020-05-10] MEDS ORDERED: VITAMIN B-1100 MG PO (11:28)
[2020-05-10] MEDS ORDERED: TRAZ150T57 PO (11:29)
--- NOTE | 2020-05-10 12:13 | NUR ---
DISCHARGE DISCHARGE MEDICATIONS AND AND INSTRUCTIONS EXPLAINED TO PATIENT. PATIENT STATED UNDERSTANDING. LARRY TO CALL PATIENT AT HOME TO SCHEDULE FOLLOW UP. IV REMOVED WITHOUT DIFFICULTY. PATIENT AMBULATED TO PRIVATE VEHICLE WITH STAFF.
[2020-09-14] MEDS ORDERED: METO25ER PO (09:48)
== END 2020-05-10 12:06 | disposition home or self-care (01) | DRG 897 ==
LOC: ER 12:06 → EOR 12:07 → ICUW 12:07 → EOR 12:07 → ICUW 05-06 03:37 → MEDS 05-07 11:52
PROVIDERS: Internal Medicine; ADMIT Emergency Medicine
DX: F10.139 Alcohol abuse with withdrawal, unspecified (principal); F31.5 Bipolar disorder, current episode depressed, severe, with psychotic features; T45.0X2A Poisoning by antiallergic and antiemetic drugs, intentional self-harm, initial encounter; T51.0X2A Toxic effect of ethanol, intentional self-harm, initial encounter; Z20.822 Contact with and (suspected) exposure to COVID-19; K21.9 Gastro-esophageal reflux disease without esophagitis; K70.30 Alcoholic cirrhosis of liver without ascites; B19.20 Unspecified viral hepatitis C without hepatic coma; F11.11 Opioid abuse, in remission; Y90.8 Blood alcohol level of 240 mg/100 ml or more; Z23 Encounter for immunization; Z79.899 Other long term (current) drug therapy
CPT/HCPCS: 0241U; 36415; 80053; 81001; 82140; 83735; 85025; 87086; 93005; 93010; 96374; 96376; 99285-25; A9270; G0008; G0480; J1650; J2060; J3411; J3475; J7042; Q2038

== ENCOUNTER 2020-05-28 16:04 | Emergency (ER) | payer MEDICARE, OTHER ==
[~2020-05-28] VITALS: Ht 188 cm; Wt 115.7 kg
[~2020-05-28 16:04] MED LIST changes: +ONDA4ODT MM; +VITAMIN B-1100 MG PO
[2020-05-28 17:22] LABS: BASOPHILS ABSOLUTE AUTO 0.11 K/mm3 (0.00-0.23); BASOPHILS PERCENT AUTO 1 % (0-2); EOSINOPHILS ABSOLUTE AUTO 0.07 K/mm3 (0.00-0.68); EOSINOPHILS PERCENT AUTO 1 % (0-6); Hematocrit 47.3 % (37.0-53.0); Hemoglobin 15.6 g/dL (13.5-17.5); IMMATURE GRAN ABSOLUTE AUTO 0.04 K/mm3 (0.00-0.10); IMMATURE GRAN PERCENT AUTO 0 % (0-1); LYMPHOCYTES ABSOLUTE AUTO 2.18 K/mm3 (0.84-5.20); LYMPHOCYTES PERCENT AUTO 19 % (21-46); MONOCYTES ABSOLUTE AUTO 0.79 K/mm3 (0.16-1.47); MONOCYTES PERCENT AUTO 7 % (4-13); Mean Corpuscular HGB 27.4 pg (26.0-34.0); Mean Corpuscular Volume 83 fL (80-100); Mean Platelet Volume 9.7 fL (9.1-12.4); NEUTROPHILS ABSOLUTE AUTO 8.33 K/mm3 (1.96-9.15); NEUTROPHILS PERCENT AUTO 72 % (41-73); Platelet Count 384 K/mm3 (150-400); RDW Coefficient Variation 14.7 % (11.7-14.2); RDW Standard Deviation 44.4 fL (35.1-46.3); White Blood Cell Count 11.52 K/mm3 (4.00-11.30)
[2020-05-28 17:39] LABS: Alanine Aminotransfer (ALT/SGP 84 U/L (12-78); Albumin, Blood 3.6 g/dL (3.4-5.0); Albumin/Globulin Ratio 0.9 (0.8-1.8); Alk Phos 118 U/L (50-136); Anion Gap 6 mmol/L (6-16); Aspartate Aminotrans (AST/SGOT 40 U/L (12-37); Bilirubin, Total 0.2 mg/dL (0.1-1.0); Blood Urea Nitrogen 8 mg/dL (8-24); Bun/Creatinine Ratio 9.3 (12.0-20.0); CO2, Blood 25 mmol/L (21-32); Calcium, Blood 9.1 mg/dL (8.5-10.1); Chloride, Blood 110 mmol/L (98-108); Creatinine, Blood 0.86 mg/dL (0.60-1.20); Glomerular Filtration Rate >60 (60-); Glucose, Blood 137 mg/dL (70-99); Potassium, Blood 3.1 mmol/L (3.5-5.5); Sodium, Blood 141 mmol/L (136-145); Total Protein, Blood 7.6 g/dL (6.4-8.2); Troponin I <0.015 ng/mL (0.000-0.040)
[2020-05-28] MEDS ORDERED: ONDA4ODT MM (20:44)
[2020-05-28] MEDS ORDERED: Pepcid20 MG PO (20:44)
[2020-09-14] MEDS ORDERED: METO25ER PO (09:48)
== END 2020-05-28 20:58 | disposition home or self-care (01) ==
LOC: ER 16:04
PROVIDERS: Emergency Medicine
DX: R07.9 Chest pain, unspecified (principal); R11.0 Nausea; I10 Essential (primary) hypertension; K21.9 Gastro-esophageal reflux disease without esophagitis; Z79.899 Other long term (current) drug therapy
CPT/HCPCS: 36415; 71045; 80053; 84484; 85025; 93005; 93010; 96374; 99285-25; A9270; J2405

== ENCOUNTER 2020-07-25 09:24 | Inpatient (IN) | payer MEDICARE, OTHER ==
[~2020-07-25] VITALS: Ht 188 cm; Wt 115.6 kg
[~2020-07-25 09:24] MED LIST changes: +Pepcid20 MG PO
[2020-07-25 10:06] LABS: BASOPHILS ABSOLUTE AUTO 0.09 K/mm3 (0.00-0.23); BASOPHILS PERCENT AUTO 1 % (0-2); EOSINOPHILS PERCENT AUTO 1 % (0-6); Hematocrit 47.6 % (37.0-53.0); Hemoglobin 15.6 g/dL (13.5-17.5); IMMATURE GRAN ABSOLUTE AUTO 0.04 K/mm3 (0.00-0.10); IMMATURE GRAN PERCENT AUTO 0 % (0-1); LYMPHOCYTES PERCENT AUTO 21 % (21-46); MONOCYTES ABSOLUTE AUTO 0.76 K/mm3 (0.16-1.47); MONOCYTES PERCENT AUTO 7 % (4-13); Mean Corpuscular HGB 27.1 pg (26.0-34.0); Mean Corpuscular HGB Conc 32.8 g/dL (31.5-36.5); Mean Corpuscular Volume 83 fL (80-100); Mean Platelet Volume 9.4 fL (9.1-12.4); NEUTROPHILS ABSOLUTE AUTO 7.82 K/mm3 (1.96-9.15); NEUTROPHILS PERCENT AUTO 70 % (41-73); Platelet Count 305 K/mm3 (150-400); RDW Coefficient Variation 13.8 % (11.7-14.2); RDW Standard Deviation 41.7 fL (35.1-46.3); Red Blood Cell Count 5.75 M/mm3 (4.30-5.90); White Blood Cell Count 11.21 K/mm3 (4.00-11.30)
[2020-07-25 10:13] LABS: Source, Urine Voided
[2020-07-25 10:16] LABS: Appearance, Urine Clear (Clear); Bilirubin, Urine Neg (Neg); Blood, Urine Neg (Neg); Color, Urine Yellow (P-Yellow); Glucose Qualitative, Urine 2+ (Neg); Ketones, Urine 1+ (Neg); Leukocyte Esterase, Urine Neg (Neg); Nitrite, Urine Neg (Neg); Protein, Urine Neg (Neg); Specific Gravity, Urine 1.015 (1.003-1.022); Urobilinogen, Urine NORM (Normal)
[2020-07-25 10:27] LABS: Alanine Aminotransfer (ALT/SGP 44 U/L (12-78); Albumin, Blood 3.5 g/dL (3.4-5.0); Albumin/Globulin Ratio 0.9 (0.8-1.8); Alk Phos 102 U/L (50-136); Anion Gap 8 mmol/L (6-16); Aspartate Aminotrans (AST/SGOT 24 U/L (12-37); Bilirubin, Total 0.2 mg/dL (0.1-1.0); Blood Urea Nitrogen 10 mg/dL (8-24); Bun/Creatinine Ratio 14.7 (12.0-20.0); CO2, Blood 23 mmol/L (21-32); Chloride, Blood 107 mmol/L (98-108); Creatinine, Blood 0.68 mg/dL (0.60-1.20); Ethanol (Alcohol), Blood, Med 129 mg/dL; Globulin, Blood 3.8 g/dL (2.2-4.0); Glomerular Filtration Rate >60 (60-); Glucose, Blood 215 mg/dL (70-99); Potassium, Blood 3.7 mmol/L (3.5-5.5); Salicylate <1.7 mg/dL (2.8-20.0); Sodium, Blood 138 mmol/L (136-145); Total Protein, Blood 7.3 g/dL (6.4-8.2)
[2020-07-25 10:30] LABS: U Amphetamine Screen Not Detected; U Barbituate Screen Not Detected; U Benzodiazapine Screen Not Detected; U Buprenorphine Screen Not Detected; U Cannabinoids Screen Not Detected; U Cocaine Screen Not Detected; U Methadone Screen Not Detected; U Methamphetamine Screen Not Detected; U Opiates Screen Not Detected; U Oxycodone Screen Not Detected; U Phencyclidine Screen Not Detected; U Propoxyphene Screen Not Detected
[2020-07-25 10:40] LABS: Acetaminophen, Random <2.0 ug/mL (10.0-30.0)
--- NOTE | 2020-07-25 15:44 | NUR ---
PT TO ICU 3 FROM ER. PT ALERT AND ORIENTED ON ARRIVAL, ABLE TO TRANSFER SELF TO ICU BED. PT COOPERATIVE WITH CARE AT THIS TIME. ROOM MITIGATED PRIOR TO PT'S ARRIVAL FOR SI. 1:1 SITTER WITH PT. PT STATES THAT HE HAS BEEN SOBER FROM ALCOHOL SINCE "MAY 05" FOLLOWING A DUI. PT ATTENDS ALCOHOL DIVERSION CLASSES WELL AA 3 HOURS A DAY, 3 TIMES A WEEK. PT STATES THAT HE CURRENTLY LIVES WITH HIS EX- AND "RENTS A ROOM". PT REPORTS THAT HIS EX IS HIS MAIN SUPPORT AND SHE WAS "OUT OF TOWN THIS WEEKEND". PT DRANK "8 NATURAL ICE BEERS" AT 0430 THIS MORNING. AROUND APPROXIMATELY 0900 PT TOOK UNKNOWN AMOUNT OF ABILIFY AND EFFEXOR AND CALLED EMS. PT REASSESSED FOR SUICIDAL IDEATION AND PT STATES THAT HE FEELS "HOPELESS" AND "WANTS IT TO END" WHEN ASKED ABOUT HIS PLAN PT STATES "TAKING SLEEPING PILLS". PT CURRENTLY ON 2-MD HOLD. HIGH RISK SUICIDE PRECAUTIONS. PT'S VSS AT THIS TIME, SEE ADMISSION ASSESSMENT.
--- NOTE | 2020-07-25 15:56 | NUR ---
PT'S EX- MARTHA CALLS FOR UPDATE. CONFIRMS PT'S SOBRIETY AND ATTENDANCE AT DIVERSION AND AA CLASSES. MARTHA STATES SHE DOESN'T BELIEVE THAT PT WAS "TRULY SUICIDAL" BUT THAT HE IS TRYING THE "DOG AND PONY SHOW" TO "DISTRACT FROM HIM LOSING HIS JOB AT [employer]".
--- NOTE | 2020-07-25 18:39 | NUR ---
PT REPORTED HAVING "LOTS OF THOUGHTS", FEELING "SAD", NURSE NOTIFIED
--- NOTE | 2020-07-25 18:48 | NUR ---
PT TRANSFERRED TO U 8, VIA WHEELCHAIR. REPORT GIVEN TO SHAMA CR.
--- NOTE | 2020-07-25 18:50 | NUR ---
REPORT RECIEVED REPORT RECIEVED FROM CATHLEEN HUNT. PT TRANSPORTED TO [facility]. PT HAS 1:1 SITTER. VS STABLE. ROOM MITIGATED BY SHAYE LOVE. SEE CHART. WILL CONTINUE TO MONITOR UNTIL REPORT GIVEN TO NIGHTSHIFT RN.
[2020-07-26 03:43] LABS: BASOPHILS ABSOLUTE AUTO 0.08 K/mm3 (0.00-0.23); BASOPHILS PERCENT AUTO 1 % (0-2); EOSINOPHILS ABSOLUTE AUTO 0.19 K/mm3 (0.00-0.68); EOSINOPHILS PERCENT AUTO 2 % (0-6); Hematocrit 43.4 % (37.0-53.0); Hemoglobin 14.2 g/dL (13.5-17.5); IMMATURE GRAN ABSOLUTE AUTO 0.05 K/mm3 (0.00-0.10); IMMATURE GRAN PERCENT AUTO 1 % (0-1); LYMPHOCYTES ABSOLUTE AUTO 2.44 K/mm3 (0.84-5.20); LYMPHOCYTES PERCENT AUTO 29 % (21-46); MONOCYTES ABSOLUTE AUTO 0.76 K/mm3 (0.16-1.47); MONOCYTES PERCENT AUTO 9 % (4-13); Mean Corpuscular HGB 26.9 pg (26.0-34.0); Mean Corpuscular HGB Conc 32.7 g/dL (31.5-36.5); Mean Corpuscular Volume 82 fL (80-100); Mean Platelet Volume 9.3 fL (9.1-12.4); NEUTROPHILS ABSOLUTE AUTO 4.88 K/mm3 (1.96-9.15); NEUTROPHILS PERCENT AUTO 58 % (41-73); Platelet Count 207 K/mm3 (150-400); RDW Coefficient Variation 13.6 % (11.7-14.2); RDW Standard Deviation 40.3 fL (35.1-46.3); Red Blood Cell Count 5.27 M/mm3 (4.30-5.90)
[2020-07-26 04:09] LABS: Alanine Aminotransfer (ALT/SGP 37 U/L (12-78); Albumin, Blood 3.1 g/dL (3.4-5.0); Albumin/Globulin Ratio 0.9 (0.8-1.8); Alk Phos 90 U/L (50-136); Anion Gap 3 mmol/L (6-16); Aspartate Aminotrans (AST/SGOT 20 U/L (12-37); Bilirubin, Total 0.3 mg/dL (0.1-1.0); Blood Urea Nitrogen 12 mg/dL (8-24); CO2, Blood 25 mmol/L (21-32); Calcium, Blood 8.3 mg/dL (8.5-10.1); Chloride, Blood 110 mmol/L (98-108); Creatinine, Blood 0.63 mg/dL (0.60-1.20); Globulin, Blood 3.3 g/dL (2.2-4.0); Glomerular Filtration Rate >60 (60-); Glucose, Blood 105 mg/dL (70-99); Magnesium, Blood 2.3 mg/dL (1.6-2.4); Potassium, Blood 3.5 mmol/L (3.5-5.5); Sodium, Blood 138 mmol/L (136-145); Total Protein, Blood 6.4 g/dL (6.4-8.2); Troponin I <0.015 ng/mL (0.000-0.040)
--- NOTE | 2020-07-26 06:30 | NUR ---
pt denies suicidal ideation at this time. reports feeling remorseful and embarassed "that i have to face my counselor after what i did". extensive discussion with pt regarding accessing his support system and resources. pt acknowledged he "had the wrong job and became overwhelmed". open and receptive. tends to have linear thought process. repetetive questions regarding his home medications and when he will be able to go home. 1:1 sitter remains at bedside. seizure pads in place. no prolonged qt noted. pleasant and cooperative with no concerns at this time.
--- NOTE | 2020-07-26 13:59 | NUR ---
REMAINS ON VIDEO MONITORING, VERBAL CONTRACT FOR [place], DENIES SI AT THIS TIME.
--- NOTE | 2020-07-26 18:11 | NUR ---
SHIFT SUMMARY; ASSUMED CARE AT 0700, REPORT FROM CAROLYN. SITTER AT BEDSIDE WHEN ASSUMING CARE. ON VIDEO MONITORING FOR HIGH RISK SI. INDEPENDANT IN ROOM, NS INFUSING AT 75ML/HR PER ORDERS. VSS. EVALUATED BY DR. HARP TODAY. SI RISK DECREASED TO MONITOR. REMAINS ON CAMERA WITHOUT SITTER. DENIES SI TO THIS RN. STATES "I HAVE RESOURCES AND A GOOD PLAN". COOPERATIVE WITH CARE. WILL CONTINUE TO MONITOR AND TREAT UNITL CHANGE OF SHIFT.
--- NOTE | 2020-07-27 03:26 | NUR ---
SHIFT SUMMARY: MODERATE LEVEL SI PATIENT IS ALERT AND ORIENTED X4 WHILE AWAKE. THOUGH PATIENT HAS BEEN ASLEEP MAJORITY OF THE SHIFT BUT IS EASILY AROUSABLE. VS ARE WNL AND IS ON RA. PATIENT DENIES SUICIAL IDEATION AT THIS TIME. HE IS VOIDING AND TOLERATING PO INTAKE. PATIENT IS NOW WATCHED THROUGH CAMERAS IN THE ROOM. HE CALLS APPROPRIATELY. CALL LIGHT WITHIN REACH. HE IS CONTINUING TO HAVE IV FLUIDS THROUGH IV. PATIENT WILL START HOME MEDICATIONS WITH MORNING SHIFT. SEIZURE PADS ARE IN PLACE. PATIENT IS CALM AND COOPERATIVE AT THIS TIME.
[2020-07-27 04:59] LABS: Albumin, Blood 2.9 g/dL (3.4-5.0); Anion Gap 4 mmol/L (6-16); Blood Urea Nitrogen 10 mg/dL (8-24); CO2, Blood 25 mmol/L (21-32); Calcium, Blood 8.7 mg/dL (8.5-10.1); Chloride, Blood 111 mmol/L (98-108); Creatinine, Blood 0.67 mg/dL (0.60-1.20); Glomerular Filtration Rate >60 (60-); Glucose, Blood 186 mg/dL (70-99); Phosphorus, Blood 3.4 mg/dL (2.5-4.9); Sodium, Blood 140 mmol/L (136-145)
--- NOTE | 2020-07-27 07:21 | NUR ---
Avery appears cheerful, is pleasantly conversant, and denies any discomfort/pain this morning. Offers me the information that he is going to get back to his safety plan and explains to me the resources he is connected with for his mental health.
--- NOTE | 2020-07-27 10:33 | NUR ---
Dr. Light here rounding on her patients. STates that she is planning to discharge the pt home. Call to Anitra Mcintyre to request [facility] pay taxi, as I was informed by Mackenzie Cox that the pt has no transportation.
[2020-07-27] MEDS ORDERED: B-1100 MG PO (11:34)
[2020-07-27] MEDS ORDERED: TRAZ150T57 PO (11:34)
--- NOTE | 2020-07-27 11:45 | NUR ---
DISCHARGE INFORMATION PACKET REVIEWED WITH PT INCLUDING NEW MEDICATIONS, FOLLOW UP APPOINTMENTS AND EDUCATION. PT HAS NO QUESTIONS OR CONCERNS. IV TO R AC REMOVED, CATHETER INTACT. ALL BELONGINGS SENT WITH PT. NO FURTHER DISCHARGE NEEDS IDENTIFIED AT THIS TIME.
[2020-09-14] MEDS ORDERED: METO25ER PO (09:48)
== END 2020-07-27 11:49 | disposition home or self-care (01) | DRG 918 ==
LOC: ER 09:24 → ERHOLD 11:41 → ICUE 11:41 → PCU 19:04
PROVIDERS: Emergency Medicine; Internal Medicine; ADMIT Family Medicine
DX: T43.592A Poisoning by other antipsychotics and neuroleptics, intentional self-harm, initial encounter (principal); F31.5 Bipolar disorder, current episode depressed, severe, with psychotic features; T51.92XA Toxic effect of unspecified alcohol, intentional self-harm, initial encounter; T43.212A Poisoning by selective serotonin and norepinephrine reuptake inhibitors, intentional self-harm, initial encounter; F90.9 Attention-deficit hyperactivity disorder, unspecified type; E83.39 Other disorders of phosphorus metabolism; K74.60 Unspecified cirrhosis of liver; B19.20 Unspecified viral hepatitis C without hepatic coma; K21.9 Gastro-esophageal reflux disease without esophagitis; Z98.890 Other specified postprocedural states; Z87.891 Personal history of nicotine dependence; Z79.899 Other long term (current) drug therapy; R73.9 Hyperglycemia, unspecified
CPT/HCPCS: 36415; 80053; 80069; 81003; 83690; 83735; 84100; 84484; 85025; 93005; 93010; 99285-25; A9270; C9113; G0480; J1650; J7030

== ENCOUNTER 2020-08-16 09:10 | Day surgery (SDC) | payer MEDICARE, OTHER ==
[~2020-08-16] VITALS: Ht 188 cm; Wt 209.5 kg
[~2020-08-16 09:10] MED LIST changes: +B-1100 MG PO
[2020-09-14] MEDS ORDERED: METO25ER PO (09:48)
== END 2020-08-16 12:09 | disposition home or self-care (01) ==
LOC: ORSCSDS 09:10
PROVIDERS: Internal Medicine Gastroenterology
PROC: 0DB68ZX Excision of Stomach, Via Natural or Artificial Opening Endoscopic, Diagnostic (ICD-10-PCS; principal; 2020-08-16 11:15)
PROC: 0DB58ZX Excision of Esophagus, Via Natural or Artificial Opening Endoscopic, Diagnostic (ICD-10-PCS; principal; 2020-08-16 11:15)
DX: K70.30 Alcoholic cirrhosis of liver without ascites (principal); K21.9 Gastro-esophageal reflux disease without esophagitis; I10 Essential (primary) hypertension; K29.70 Gastritis, unspecified, without bleeding; K44.9 Diaphragmatic hernia without obstruction or gangrene; K31.89 Other diseases of stomach and duodenum; B19.20 Unspecified viral hepatitis C without hepatic coma; E66.9 Obesity, unspecified; Z68.31 Body mass index [BMI] 31.0-31.9, adult; Z87.891 Personal history of nicotine dependence; Z79.899 Other long term (current) drug therapy
CPT/HCPCS: 88305; 88342; J2250; J2704; J7120

== ENCOUNTER 2020-08-18 15:19 | Observation (INO) | payer MEDICARE, OTHER ==
[~2020-08-18] VITALS: Ht 188 cm; Wt 88.5 kg
[2020-08-18 16:25] LABS: BASOPHILS PERCENT AUTO 1 % (0-2); EOSINOPHILS ABSOLUTE AUTO 0.23 K/mm3 (0.00-0.68); EOSINOPHILS PERCENT AUTO 2 % (0-6); Hematocrit 48.2 % (37.0-53.0); IMMATURE GRAN ABSOLUTE AUTO 0.04 K/mm3 (0.00-0.10); IMMATURE GRAN PERCENT AUTO 0 % (0-1); LYMPHOCYTES ABSOLUTE AUTO 3.02 K/mm3 (0.84-5.20); LYMPHOCYTES PERCENT AUTO 23 % (21-46); MONOCYTES ABSOLUTE AUTO 0.93 K/mm3 (0.16-1.47); MONOCYTES PERCENT AUTO 7 % (4-13); Mean Corpuscular HGB 27.4 pg (26.0-34.0); Mean Corpuscular HGB Conc 33.2 g/dL (31.5-36.5); Mean Corpuscular Volume 82 fL (80-100); Mean Platelet Volume 8.8 fL (9.1-12.4); NEUTROPHILS ABSOLUTE AUTO 8.72 K/mm3 (1.96-9.15); NEUTROPHILS PERCENT AUTO 67 % (41-73); Platelet Count 384 K/mm3 (150-400); RDW Standard Deviation 42.2 fL (35.1-46.3); Red Blood Cell Count 5.85 M/mm3 (4.30-5.90); White Blood Cell Count 13.04 K/mm3 (4.00-11.30)
[2020-08-18 16:39] LABS: Alanine Aminotransfer (ALT/SGP 34 U/L (12-78); Albumin, Blood 3.6 g/dL (3.4-5.0); Albumin/Globulin Ratio 0.8 (0.8-1.8); Alk Phos 113 U/L (50-136); Anion Gap 9 mmol/L (6-16); Aspartate Aminotrans (AST/SGOT 15 U/L (12-37); Bilirubin, Total 0.2 mg/dL (0.1-1.0); Blood Urea Nitrogen 8 mg/dL (8-24); Bun/Creatinine Ratio 10.1 (12.0-20.0); CO2, Blood 24 mmol/L (21-32); Calcium, Blood 8.9 mg/dL (8.5-10.1); Chloride, Blood 107 mmol/L (98-108); Creatinine, Blood 0.79 mg/dL (0.60-1.20); Ethanol (Alcohol), Blood, Med 168 mg/dL; Globulin, Blood 4.4 g/dL (2.2-4.0); Glomerular Filtration Rate >60 (60-); Glucose, Blood 165 mg/dL (70-99); Potassium, Blood 3.7 mmol/L (3.5-5.5); Salicylate <1.7 mg/dL (2.8-20.0); Sodium, Blood 140 mmol/L (136-145)
[2020-08-18 16:43] LABS: Acetaminophen, Random <2.0 ug/mL (10.0-30.0)
[2020-08-18 20:39] LABS: SARS-Cov-2 (COVID-19) PCR, MMC NEGATIVE (NEGATIVE)
[2020-08-19 04:43] LABS: Source, Urine Clean Catch
[2020-08-19 04:48] LABS: Appearance, Urine Clear (Clear); Bilirubin, Urine Neg (Neg); Blood, Urine Neg (Neg); Color, Urine Amber (P-Yellow); Glucose Qualitative, Urine Neg (Neg); Ketones, Urine Neg (Neg); Leukocyte Esterase, Urine Neg (Neg); Nitrite, Urine Neg (Neg); Protein, Urine 1+ (Neg); Urobilinogen, Urine NORM (Normal)
[2020-08-19 04:58] LABS: U Amphetamine Screen Not Detected; U Barbituate Screen Not Detected; U Benzodiazapine Screen Not Detected; U Buprenorphine Screen Not Detected; U Cannabinoids Screen Not Detected; U Cocaine Screen Not Detected; U Methadone Screen Not Detected; U Methamphetamine Screen Not Detected; U Opiates Screen Not Detected; U Oxycodone Screen Not Detected; U Phencyclidine Screen Not Detected; U Propoxyphene Screen Not Detected
[2020-09-14] MEDS ORDERED: METO25ER PO (09:48)
== END 2020-08-20 15:29 ==
LOC: ER 15:19 → EOR 15:20
PROVIDERS: ADMIT Student in an Organized Health Care Education/Training Program
DX: F31.5 Bipolar disorder, current episode depressed, severe, with psychotic features (principal); F90.9 Attention-deficit hyperactivity disorder, unspecified type; K21.9 Gastro-esophageal reflux disease without esophagitis; E66.9 Obesity, unspecified; Z20.822 Contact with and (suspected) exposure to COVID-19; Z68.25 Body mass index [BMI] 25.0-25.9, adult; Z91.14 Patient's other noncompliance with medication regimen
CPT/HCPCS: 80053; 85025; 93005; 93010; 99285-25; A9270; G0378; G0480; Q3014; U0004

== ENCOUNTER 2020-09-04 13:09 | Emergency (ER) | payer MEDICARE, OTHER ==
[~2020-09-04] VITALS: Ht 188 cm; Wt 112.9 kg
[2020-09-04 13:59] LABS: BASOPHILS ABSOLUTE AUTO 0.07 K/mm3 (0.00-0.23); BASOPHILS PERCENT AUTO 1 % (0-2); EOSINOPHILS ABSOLUTE AUTO 0.07 K/mm3 (0.00-0.68); EOSINOPHILS PERCENT AUTO 1 % (0-6); Hematocrit 49.7 % (37.0-53.0); Hemoglobin 16.6 g/dL (13.5-17.5); IMMATURE GRAN ABSOLUTE AUTO 0.05 K/mm3 (0.00-0.10); IMMATURE GRAN PERCENT AUTO 0 % (0-1); LYMPHOCYTES ABSOLUTE AUTO 2.21 K/mm3 (0.84-5.20); LYMPHOCYTES PERCENT AUTO 18 % (21-46); MONOCYTES ABSOLUTE AUTO 0.83 K/mm3 (0.16-1.47); MONOCYTES PERCENT AUTO 7 % (4-13); Mean Corpuscular HGB 27.6 pg (26.0-34.0); Mean Corpuscular HGB Conc 33.4 g/dL (31.5-36.5); Mean Corpuscular Volume 83 fL (80-100); Mean Platelet Volume 9.3 fL (9.1-12.4); NEUTROPHILS ABSOLUTE AUTO 9.29 K/mm3 (1.96-9.15); NEUTROPHILS PERCENT AUTO 74 % (41-73); Platelet Count 296 K/mm3 (150-400); RDW Coefficient Variation 14.1 % (11.7-14.2); RDW Standard Deviation 41.9 fL (35.1-46.3); Red Blood Cell Count 6.02 M/mm3 (4.30-5.90); White Blood Cell Count 12.52 K/mm3 (4.00-11.30)
[2020-09-04 14:15] LABS: Alanine Aminotransfer (ALT/SGP 191 U/L (12-78); Albumin, Blood 4.1 g/dL (3.4-5.0); Albumin/Globulin Ratio 0.9 (0.8-1.8); Alk Phos 122 U/L (50-136); Anion Gap 5 mmol/L (6-16); Aspartate Aminotrans (AST/SGOT 44 U/L (12-37); Bilirubin, Total 0.3 mg/dL (0.1-1.0); Blood Urea Nitrogen 10 mg/dL (8-24); Bun/Creatinine Ratio 12.1 (12.0-20.0); CO2, Blood 28 mmol/L (21-32); Calcium, Blood 10.2 mg/dL (8.5-10.1); Chloride, Blood 106 mmol/L (98-108); Creatinine, Blood 0.83 mg/dL (0.60-1.20); Globulin, Blood 4.8 g/dL (2.2-4.0); Glomerular Filtration Rate >60 (60-); Glucose, Blood 102 mg/dL (70-99); Potassium, Blood 3.6 mmol/L (3.5-5.5); Sodium, Blood 139 mmol/L (136-145); Total Protein, Blood 8.9 g/dL (6.4-8.2); Troponin I <0.015 ng/mL (0.000-0.040)
== END 2020-09-04 17:52 | disposition home or self-care (01) ==
LOC: ER 13:09
PROVIDERS: Physician Assistant
DX: R07.9 Chest pain, unspecified (principal); K21.9 Gastro-esophageal reflux disease without esophagitis; Z79.899 Other long term (current) drug therapy
CPT/HCPCS: 36415; 71045; 80053; 84484; 85025; 93005; 93010; 96374; 99285-25; J2405

== ENCOUNTER 2020-09-08 17:52 | Emergency (ER) | payer MEDICARE, OTHER ==
[~2020-09-08] VITALS: Ht 188 cm; Wt 68.0 kg
[2020-09-09] MEDS ORDERED: AMPDEX30CR PO (23:56)
[2020-09-14] MEDS ORDERED: METO25ER PO (09:48)
== END 2020-09-08 18:11 | disposition left against medical advice (07) ==
LOC: ER 17:52
DX: S60.812A Abrasion of left wrist, initial encounter (principal); Z53.21 Procedure and treatment not carried out due to patient leaving prior to being seen by health care provider; X58.XXXA Exposure to other specified factors, initial encounter
CPT/HCPCS: 99282

== ENCOUNTER 2020-09-09 07:09 | Emergency (ER) | payer MEDICARE, OTHER ==
[~2020-09-09] VITALS: Ht 167.6 cm; Wt 95.2 kg
[2020-09-09] MEDS ORDERED: AMPDEX30CR PO (23:56)
[2020-09-14] MEDS ORDERED: METO25ER PO (09:48)
== END 2020-09-09 11:24 | disposition home or self-care (01) ==
LOC: ER 07:09
DX: F10.129 Alcohol abuse with intoxication, unspecified (principal); R45.851 Suicidal ideations; K21.9 Gastro-esophageal reflux disease without esophagitis; Z79.899 Other long term (current) drug therapy
CPT/HCPCS: 93005; 93010; 99285-25

== ENCOUNTER 2020-09-30 15:34 | Observation (INO) | payer MEDICARE, OTHER ==
[~2020-09-30] VITALS: Ht 180.3 cm; Wt 113.4 kg
[2020-09-30] MEDS ORDERED: METO25ER PO (16:05)
[2020-09-30] MEDS ORDERED: Naltrexone HCl50 MG PO (16:05)
[2020-09-30] MEDS ORDERED: ARIP20 PO (16:06)
[2020-09-30] MEDS ORDERED: VENL75ER PO (16:06)
[2020-09-30] MEDS ORDERED: TRAZ150T57 PO (16:07)
[2020-09-30] MEDS ORDERED: Amphetamine Sal30 MG PO (16:07)
[2020-09-30 16:14] LABS: BASOPHILS ABSOLUTE AUTO 0.11 K/mm3 (0.00-0.23); BASOPHILS PERCENT AUTO 1 % (0-2); EOSINOPHILS ABSOLUTE AUTO 0.21 K/mm3 (0.00-0.68); EOSINOPHILS PERCENT AUTO 2 % (0-6); Hematocrit 47.2 % (37.0-53.0); Hemoglobin 15.7 g/dL (13.5-17.5); IMMATURE GRAN ABSOLUTE AUTO 0.04 K/mm3 (0.00-0.10); IMMATURE GRAN PERCENT AUTO 0 % (0-1); LYMPHOCYTES ABSOLUTE AUTO 3.07 K/mm3 (0.84-5.20); LYMPHOCYTES PERCENT AUTO 29 % (21-46); MONOCYTES PERCENT AUTO 7 % (4-13); Mean Corpuscular HGB 27.5 pg (26.0-34.0); Mean Corpuscular HGB Conc 33.3 g/dL (31.5-36.5); Mean Corpuscular Volume 83 fL (80-100); Mean Platelet Volume 9.2 fL (9.1-12.4); NEUTROPHILS ABSOLUTE AUTO 6.62 K/mm3 (1.96-9.15); NEUTROPHILS PERCENT AUTO 62 % (41-73); Platelet Count 367 K/mm3 (150-400); RDW Coefficient Variation 14.2 % (11.7-14.2); RDW Standard Deviation 42.1 fL (35.1-46.3); White Blood Cell Count 10.75 K/mm3 (4.00-11.30)
[2020-09-30 16:20] LABS: Source, Urine Clean Catch
[2020-09-30 16:29] LABS: Appearance, Urine Clear (Clear); Bilirubin, Urine Neg (Neg); Blood, Urine Neg (Neg); Color, Urine Yellow (P-Yellow); Glucose Qualitative, Urine Neg (Neg); Ketones, Urine 1+ (Neg); Leukocyte Esterase, Urine Neg (Neg); Nitrite, Urine Neg (Neg); Protein, Urine Neg (Neg); Urobilinogen, Urine NORM (Normal)
[2020-09-30 16:33] LABS: Alanine Aminotransfer (ALT/SGP 56 U/L (12-78); Albumin, Blood 3.6 g/dL (3.4-5.0); Albumin/Globulin Ratio 0.9 (0.8-1.8); Alk Phos 104 U/L (50-136); Anion Gap 10 mmol/L (6-16); Aspartate Aminotrans (AST/SGOT 23 U/L (12-37); Bilirubin, Total 0.2 mg/dL (0.1-1.0); Blood Urea Nitrogen 9 mg/dL (8-24); Bun/Creatinine Ratio 10.8 (12.0-20.0); CO2, Blood 25 mmol/L (21-32); Calcium, Blood 9.8 mg/dL (8.5-10.1); Chloride, Blood 108 mmol/L (98-108); Creatinine, Blood 0.83 mg/dL (0.60-1.20); Ethanol (Alcohol), Blood, Med 208 mg/dL; Globulin, Blood 4.2 g/dL (2.2-4.0); Glomerular Filtration Rate >60 (60-); Glucose, Blood 130 mg/dL (70-99); Salicylate <1.7 mg/dL (2.8-20.0); Sodium, Blood 143 mmol/L (136-145); Total Protein, Blood 7.8 g/dL (6.4-8.2)
[2020-09-30 16:39] LABS: U Amphetamine Screen Not Detected; U Barbituate Screen Not Detected; U Benzodiazapine Screen Not Detected; U Cannabinoids Screen Not Detected; U Cocaine Screen Not Detected; U Methadone Screen Not Detected; U Methamphetamine Screen Not Detected; U Opiates Screen Not Detected; U Phencyclidine Screen Not Detected
[2020-09-30 16:40] LABS: U Buprenorphine Screen Not Detected; U Oxycodone Screen Not Detected; U Propoxyphene Screen Not Detected
[2020-09-30 17:15] LABS: Acetaminophen, Random <2.0 ug/mL (10.0-30.0)
[2020-09-30 21:20] LABS: SARS-Cov-2 (COVID-19) PCR, MMC NEGATIVE (NEGATIVE)
== END 2020-10-01 12:04 | disposition home or self-care (01) ==
LOC: ER 15:34 → EOR 15:35
PROVIDERS: Physician Assistant; ADMIT Student in an Organized Health Care Education/Training Program
DX: F32.9 Major depressive disorder, single episode, unspecified (principal); F10.99 Alcohol use, unspecified with unspecified alcohol-induced disorder; F43.10 Post-traumatic stress disorder, unspecified; T43.212A Poisoning by selective serotonin and norepinephrine reuptake inhibitors, intentional self-harm, initial encounter; K21.9 Gastro-esophageal reflux disease without esophagitis; K74.60 Unspecified cirrhosis of liver; B19.20 Unspecified viral hepatitis C without hepatic coma; Z20.822 Contact with and (suspected) exposure to COVID-19; R00.0 Tachycardia, unspecified; Z96.641 Presence of right artificial hip joint
CPT/HCPCS: 80053; 81003; 85025; 93005; 93010; 99285-25; A9270; G0378; G0480; J7030; U0004

== ENCOUNTER 2020-10-04 11:11 | Observation (INO) | payer MEDICARE, OTHER ==
[~2020-10-04] VITALS: Ht 182.9 cm; Wt 113.4 kg
[2020-10-04 12:22] LABS: BASOPHILS ABSOLUTE AUTO 0.12 K/mm3 (0.00-0.23); BASOPHILS PERCENT AUTO 1 % (0-2); EOSINOPHILS ABSOLUTE AUTO 0.04 K/mm3 (0.00-0.68); EOSINOPHILS PERCENT AUTO 0 % (0-6); Hematocrit 45.6 % (37.0-53.0); IMMATURE GRAN ABSOLUTE AUTO 0.08 K/mm3 (0.00-0.10); IMMATURE GRAN PERCENT AUTO 1 % (0-1); LYMPHOCYTES ABSOLUTE AUTO 1.62 K/mm3 (0.84-5.20); LYMPHOCYTES PERCENT AUTO 13 % (21-46); MONOCYTES ABSOLUTE AUTO 0.82 K/mm3 (0.16-1.47); MONOCYTES PERCENT AUTO 6 % (4-13); Mean Corpuscular HGB 27.3 pg (26.0-34.0); Mean Corpuscular HGB Conc 32.9 g/dL (31.5-36.5); Mean Corpuscular Volume 83 fL (80-100); NEUTROPHILS ABSOLUTE AUTO 10.32 K/mm3 (1.96-9.15); NEUTROPHILS PERCENT AUTO 79 % (41-73); RDW Coefficient Variation 14.5 % (11.7-14.2); RDW Standard Deviation 43.8 fL (35.1-46.3); Red Blood Cell Count 5.49 M/mm3 (4.30-5.90)
[2020-10-04 12:38] LABS: Mean Platelet Volume 9.6 fL (9.1-12.4); Platelet Count 289 K/mm3 (150-400)
[2020-10-04 12:39] LABS: Alanine Aminotransfer (ALT/SGP 52 U/L (12-78); Albumin, Blood 3.5 g/dL (3.4-5.0); Albumin/Globulin Ratio 0.9 (0.8-1.8); Alk Phos 93 U/L (50-136); Anion Gap 9 mmol/L (6-16); Aspartate Aminotrans (AST/SGOT 39 U/L (12-37); Bilirubin, Total 0.4 mg/dL (0.1-1.0); Blood Urea Nitrogen 9 mg/dL (8-24); Bun/Creatinine Ratio 12.7 (12.0-20.0); CO2, Blood 25 mmol/L (21-32); Calcium, Blood 9.8 mg/dL (8.5-10.1); Chloride, Blood 104 mmol/L (98-108); Creatinine, Blood 0.71 mg/dL (0.60-1.20); Ethanol (Alcohol), Blood, Med 138 mg/dL; Glomerular Filtration Rate >60 (60-); Glucose, Blood 144 mg/dL (70-99); Salicylate <1.7 mg/dL (2.8-20.0); Sodium, Blood 138 mmol/L (136-145); Total Protein, Blood 7.5 g/dL (6.4-8.2); Troponin I <0.015 ng/mL (0.000-0.040)
[2020-10-04 12:47] LABS: Source, Urine Clean Catch
[2020-10-04 12:54] LABS: Appearance, Urine Cloudy (Clear); Bilirubin, Urine Neg (Neg); Blood, Urine Neg (Neg); Color, Urine Yellow (P-Yellow); Glucose Qualitative, Urine Neg (Neg); Ketones, Urine Neg (Neg); Leukocyte Esterase, Urine Neg (Neg); Nitrite, Urine Neg (Neg); Protein, Urine Neg (Neg); Urobilinogen, Urine NORM (Normal)
[2020-10-04 13:02] LABS: Amorphous Heavy (0-Heavy)
[2020-10-04 13:03] LABS: Bacteria Few /hpf; Granular Casts 0-2 /lpf (0); Red Blood Cells, Urine 0-2 /hpf (0-2); Squamous Epithelial Cells Not Seen /hpf (Few); White Blood Cells, Urine 0-2 /hpf (0-5)
[2020-10-04 13:06] LABS: Acetaminophen, Random <2.0 ug/mL (10.0-30.0)
[2020-10-04 13:07] LABS: U Amphetamine Screen Not Detected; U Barbituate Screen Not Detected; U Benzodiazapine Screen Not Detected; U Buprenorphine Screen Not Detected; U Cannabinoids Screen Not Detected; U Cocaine Screen Not Detected; U Methadone Screen Not Detected; U Methamphetamine Screen Not Detected; U Opiates Screen Not Detected; U Oxycodone Screen Not Detected; U Phencyclidine Screen Not Detected; U Propoxyphene Screen Not Detected
[2020-10-04 14:33] LABS: SARS-Cov-2 (COVID-19) PCR, MMC NEGATIVE (NEGATIVE)
== END 2020-10-06 10:45 | disposition home or self-care (01) ==
LOC: ER 11:11 → EOR 11:12
PROVIDERS: ADMIT Student in an Organized Health Care Education/Training Program
DX: F31.9 Bipolar disorder, unspecified (principal); F19.10 Other psychoactive substance abuse, uncomplicated; F10.129 Alcohol abuse with intoxication, unspecified; F43.10 Post-traumatic stress disorder, unspecified; F90.9 Attention-deficit hyperactivity disorder, unspecified type; T46.7X2A Poisoning by peripheral vasodilators, intentional self-harm, initial encounter; E66.9 Obesity, unspecified; Z68.33 Body mass index [BMI] 33.0-33.9, adult; Z20.822 Contact with and (suspected) exposure to COVID-19
CPT/HCPCS: 71045; 80053; 81001; 84484; 85025; 93005; 93010; 99285-25; A9270; G0378; G0480; U0004

== ENCOUNTER 2020-11-27 17:11 | Observation (INO) | payer MEDICARE, OTHER ==
[~2020-11-27] VITALS: Ht 188 cm; Wt 113.4 kg
[2020-11-27 18:09] LABS: BASOPHILS ABSOLUTE AUTO 0.14 K/mm3 (0.00-0.23); BASOPHILS PERCENT AUTO 1 % (0-2); EOSINOPHILS ABSOLUTE AUTO 0.09 K/mm3 (0.00-0.68); EOSINOPHILS PERCENT AUTO 1 % (0-6); Hematocrit 47.6 % (37.0-53.0); Hemoglobin 16.2 g/dL (13.5-17.5); IMMATURE GRAN ABSOLUTE AUTO 0.09 K/mm3 (0.00-0.10); IMMATURE GRAN PERCENT AUTO 1 % (0-1); LYMPHOCYTES ABSOLUTE AUTO 3.15 K/mm3 (0.84-5.20); LYMPHOCYTES PERCENT AUTO 21 % (21-46); MONOCYTES ABSOLUTE AUTO 0.73 K/mm3 (0.16-1.47); MONOCYTES PERCENT AUTO 5 % (4-13); Mean Corpuscular HGB 27.9 pg (26.0-34.0); Mean Corpuscular Volume 82 fL (80-100); Mean Platelet Volume 9.1 fL (9.1-12.4); NEUTROPHILS ABSOLUTE AUTO 11.01 K/mm3 (1.96-9.15); NEUTROPHILS PERCENT AUTO 72 % (41-73); Platelet Count 537 K/mm3 (150-400); RDW Coefficient Variation 14.4 % (11.7-14.2); RDW Standard Deviation 42.3 fL (35.1-46.3); Red Blood Cell Count 5.81 M/mm3 (4.30-5.90); White Blood Cell Count 15.21 K/mm3 (4.00-11.30)
[2020-11-27 19:13] LABS: Alanine Aminotransfer (ALT/SGP 97 U/L (12-78); Albumin, Blood 3.5 g/dL (3.4-5.0); Albumin/Globulin Ratio 0.8 (0.8-1.8); Alk Phos 157 U/L (50-136); Anion Gap 11 mmol/L (6-16); Aspartate Aminotrans (AST/SGOT 44 U/L (12-37); Bilirubin, Total 0.2 mg/dL (0.1-1.0); Blood Urea Nitrogen 6 mg/dL (8-24); Bun/Creatinine Ratio 6.3 (12.0-20.0); CO2, Blood 25 mmol/L (21-32); Calcium, Blood 9.3 mg/dL (8.5-10.1); Chloride, Blood 104 mmol/L (98-108); Creatinine, Blood 0.95 mg/dL (0.60-1.20); Globulin, Blood 4.5 g/dL (2.2-4.0); Glomerular Filtration Rate >60 (60-); Glucose, Blood 175 mg/dL (70-99); Potassium, Blood 2.5 mmol/L (3.5-5.5); Sodium, Blood 140 mmol/L (136-145)
[2020-11-27 19:32] LABS: Ethanol (Alcohol), Blood, Med 220 mg/dL; Salicylate <1.7 mg/dL (2.8-20.0); Thyroxine (T4) 10.7 ug/dL (4.5-12.1)
[2020-11-27 19:50] LABS: Magnesium, Blood 2.8 mg/dL (1.6-2.4)
[2020-11-27 20:00] LABS: SARS-Cov-2 (COVID-19) PCR, MMC NEGATIVE (NEGATIVE)
[2020-11-27 21:16] LABS: Acetaminophen, Random <2.0 ug/mL (10.0-30.0)
[2020-11-28 00:37] LABS: U Amphetamine Screen Not Detected; U Barbituate Screen Not Detected; U Benzodiazapine Screen Not Detected; U Buprenorphine Screen Not Detected; U Cannabinoids Screen Not Detected; U Cocaine Screen Not Detected; U Methadone Screen Not Detected; U Methamphetamine Screen Not Detected; U Opiates Screen Not Detected; U Oxycodone Screen Not Detected; U Phencyclidine Screen Not Detected; U Propoxyphene Screen Not Detected
== END 2020-11-28 00:44 | disposition home or self-care (01) ==
LOC: ER 17:11 → EOR 17:12
PROVIDERS: ADMIT Emergency Medicine
DX: F31.9 Bipolar disorder, unspecified (principal); R45.851 Suicidal ideations; T43.622A Poisoning by amphetamines, intentional self-harm, initial encounter; S00.81XA Abrasion of other part of head, initial encounter; S60.512A Abrasion of left hand, initial encounter; S20.212A Contusion of left front wall of thorax, initial encounter; K21.9 Gastro-esophageal reflux disease without esophagitis; E66.9 Obesity, unspecified; Z20.822 Contact with and (suspected) exposure to COVID-19; Z23 Encounter for immunization; Z79.899 Other long term (current) drug therapy; Z68.30 Body mass index [BMI] 30.0-30.9, adult; W19.XXXA Unspecified fall, initial encounter
CPT/HCPCS: 36415; 73120; 80053; 82140; 83735; 84436; 84443; 85025; 90471; 90714; 96374; 96375; 99285-25; A9270; G0378; G0480; J2405; U0004

== ENCOUNTER 2020-11-28 11:35 | Observation (INO) | payer MEDICARE, OTHER ==
[~2020-11-28] VITALS: Ht 182.9 cm; Wt 102.1 kg
[2020-11-28 12:09] LABS: BASOPHILS ABSOLUTE AUTO 0.16 K/mm3 (0.00-0.23); BASOPHILS PERCENT AUTO 1 % (0-2); EOSINOPHILS ABSOLUTE AUTO 0.06 K/mm3 (0.00-0.68); EOSINOPHILS PERCENT AUTO 1 % (0-6); Hematocrit 48.9 % (37.0-53.0); Hemoglobin 16.2 g/dL (13.5-17.5); IMMATURE GRAN ABSOLUTE AUTO 0.06 K/mm3 (0.00-0.10); IMMATURE GRAN PERCENT AUTO 1 % (0-1); LYMPHOCYTES ABSOLUTE AUTO 2.96 K/mm3 (0.84-5.20); LYMPHOCYTES PERCENT AUTO 24 % (21-46); MONOCYTES ABSOLUTE AUTO 0.49 K/mm3 (0.16-1.47); MONOCYTES PERCENT AUTO 4 % (4-13); Mean Corpuscular HGB 27.8 pg (26.0-34.0); Mean Corpuscular HGB Conc 33.1 g/dL (31.5-36.5); Mean Corpuscular Volume 84 fL (80-100); Mean Platelet Volume 8.9 fL (9.1-12.4); NEUTROPHILS ABSOLUTE AUTO 8.63 K/mm3 (1.96-9.15); NEUTROPHILS PERCENT AUTO 70 % (41-73); Platelet Count 538 K/mm3 (150-400); RDW Coefficient Variation 14.7 % (11.7-14.2); RDW Standard Deviation 44.7 fL (35.1-46.3); Red Blood Cell Count 5.82 M/mm3 (4.30-5.90); White Blood Cell Count 12.36 K/mm3 (4.00-11.30)
[2020-11-28 12:22] LABS: Alanine Aminotransfer (ALT/SGP 81 U/L (12-78); Albumin, Blood 3.5 g/dL (3.4-5.0); Albumin/Globulin Ratio 0.8 (0.8-1.8); Alk Phos 148 U/L (50-136); Anion Gap 11 mmol/L (6-16); Aspartate Aminotrans (AST/SGOT 37 U/L (12-37); Bilirubin, Total 0.2 mg/dL (0.1-1.0); Blood Urea Nitrogen 6 mg/dL (8-24); CO2, Blood 23 mmol/L (21-32); Calcium, Blood 9.1 mg/dL (8.5-10.1); Chloride, Blood 108 mmol/L (98-108); Ethanol (Alcohol), Blood, Med 291 mg/dL; Globulin, Blood 4.6 g/dL (2.2-4.0); Glomerular Filtration Rate >60 (60-); Glucose, Blood 185 mg/dL (70-99); Potassium, Blood 3.2 mmol/L (3.5-5.5); Salicylate <1.7 mg/dL (2.8-20.0); Sodium, Blood 142 mmol/L (136-145); Total Protein, Blood 8.1 g/dL (6.4-8.2)
[2020-11-28 12:26] LABS: Acetaminophen, Random <2.0 ug/mL (10.0-30.0)
[2020-11-28 14:17] LABS: Source, Urine Voided
[2020-11-28 14:19] LABS: Appearance, Urine Clear (Clear); Bilirubin, Urine Neg (Neg); Blood, Urine Neg (Neg); Color, Urine Yellow (P-Yellow); Glucose Qualitative, Urine Neg (Neg); Ketones, Urine Neg (Neg); Leukocyte Esterase, Urine Neg (Neg); Nitrite, Urine Neg (Neg); Protein, Urine 1+ (Neg); Urobilinogen, Urine NORM (Normal); pH, Urine 6.5 (5.0-8.0)
[2020-11-28 14:29] LABS: U Amphetamine Screen Not Detected; U Barbituate Screen Not Detected; U Benzodiazapine Screen Not Detected; U Buprenorphine Screen Not Detected; U Cannabinoids Screen Not Detected; U Cocaine Screen Not Detected; U Methadone Screen Not Detected; U Methamphetamine Screen Not Detected; U Opiates Screen Not Detected; U Oxycodone Screen Not Detected; U Phencyclidine Screen Not Detected; U Propoxyphene Screen Not Detected
== END 2020-11-30 14:55 | disposition home or self-care (01) ==
LOC: ER 11:35 → EOR 11:36
PROVIDERS: ADMIT Emergency Medicine
DX: F31.9 Bipolar disorder, unspecified (principal); T43.622A Poisoning by amphetamines, intentional self-harm, initial encounter; S00.81XA Abrasion of other part of head, initial encounter; S60.512A Abrasion of left hand, initial encounter; W19.XXXA Unspecified fall, initial encounter; F10.129 Alcohol abuse with intoxication, unspecified; Y90.8 Blood alcohol level of 240 mg/100 ml or more; K21.9 Gastro-esophageal reflux disease without esophagitis; Z79.899 Other long term (current) drug therapy
CPT/HCPCS: 36415; 80053; 85025; 93005; 93010; 96374; 96375; 99285-25; A9270; G0378; G0480; J1200; J1630; J2060; J7030

== ENCOUNTER 2020-12-06 19:00 | Emergency (ER) | payer MEDICARE, OTHER ==
[~2020-12-06] VITALS: Ht 188 cm; Wt 120.2 kg
[2020-12-06 20:18] LABS: BASOPHILS ABSOLUTE AUTO 0.13 K/mm3 (0.00-0.23); BASOPHILS PERCENT AUTO 1 % (0-2); EOSINOPHILS ABSOLUTE AUTO 0.11 K/mm3 (0.00-0.68); EOSINOPHILS PERCENT AUTO 1 % (0-6); Hematocrit 48.4 % (37.0-53.0); Hemoglobin 15.9 g/dL (13.5-17.5); IMMATURE GRAN ABSOLUTE AUTO 0.12 K/mm3 (0.00-0.10); IMMATURE GRAN PERCENT AUTO 1 % (0-1); LYMPHOCYTES ABSOLUTE AUTO 3.39 K/mm3 (0.84-5.20); LYMPHOCYTES PERCENT AUTO 23 % (21-46); MONOCYTES ABSOLUTE AUTO 1.21 K/mm3 (0.16-1.47); MONOCYTES PERCENT AUTO 8 % (4-13); Mean Corpuscular HGB 27.4 pg (26.0-34.0); Mean Corpuscular HGB Conc 32.9 g/dL (31.5-36.5); Mean Corpuscular Volume 83 fL (80-100); NEUTROPHILS ABSOLUTE AUTO 9.96 K/mm3 (1.96-9.15); NEUTROPHILS PERCENT AUTO 67 % (41-73); Platelet Count 388 K/mm3 (150-400); RDW Coefficient Variation 14.6 % (11.7-14.2); RDW Standard Deviation 44.5 fL (35.1-46.3); Red Blood Cell Count 5.81 M/mm3 (4.30-5.90); White Blood Cell Count 14.92 K/mm3 (4.00-11.30)
[2020-12-06 20:36] LABS: Alanine Aminotransfer (ALT/SGP 94 U/L (12-78); Albumin, Blood 3.8 g/dL (3.4-5.0); Albumin/Globulin Ratio 0.8 (0.8-1.8); Alk Phos 135 U/L (50-136); Anion Gap 9 mmol/L (6-16); Aspartate Aminotrans (AST/SGOT 29 U/L (12-37); Bilirubin, Total 0.2 mg/dL (0.1-1.0); Blood Urea Nitrogen 7 mg/dL (8-24); Bun/Creatinine Ratio 10.1 (12.0-20.0); CO2, Blood 22 mmol/L (21-32); Calcium, Blood 9.4 mg/dL (8.5-10.1); Chloride, Blood 107 mmol/L (98-108); Creatinine, Blood 0.69 mg/dL (0.60-1.20); Ethanol (Alcohol), Blood, Med 226 mg/dL; Globulin, Blood 4.6 g/dL (2.2-4.0); Glomerular Filtration Rate >60 (60-); Glucose, Blood 149 mg/dL (70-99); Potassium, Blood 3.6 mmol/L (3.5-5.5); Salicylate <1.7 mg/dL (2.8-20.0); Sodium, Blood 138 mmol/L (136-145); Total Protein, Blood 8.4 g/dL (6.4-8.2)
[2020-12-06 20:37] LABS: Acetaminophen, Random <2.0 ug/mL (10.0-30.0)
== END 2020-12-06 23:41 | disposition left against medical advice (07) ==
LOC: ER 19:00
PROVIDERS: Physician Assistant
DX: R41.0 Disorientation, unspecified (principal); Z53.21 Procedure and treatment not carried out due to patient leaving prior to being seen by health care provider
CPT/HCPCS: 36415; 70450; 80053; 82947; 85025; 93005; 93010; 99285-25; G0480

== ENCOUNTER 2020-12-15 20:56 | Observation (INO) | payer MEDICARE, OTHER ==
[~2020-12-15] VITALS: Ht 188 cm; Wt 115.7 kg
[2020-12-15 22:22] LABS: BASOPHILS ABSOLUTE AUTO 0.14 K/mm3 (0.00-0.23); BASOPHILS PERCENT AUTO 1 % (0-2); EOSINOPHILS ABSOLUTE AUTO 0.29 K/mm3 (0.00-0.68); EOSINOPHILS PERCENT AUTO 2 % (0-6); Hemoglobin 16.2 g/dL (13.5-17.5); IMMATURE GRAN ABSOLUTE AUTO 0.09 K/mm3 (0.00-0.10); IMMATURE GRAN PERCENT AUTO 1 % (0-1); LYMPHOCYTES ABSOLUTE AUTO 3.73 K/mm3 (0.84-5.20); LYMPHOCYTES PERCENT AUTO 29 % (21-46); MONOCYTES ABSOLUTE AUTO 0.69 K/mm3 (0.16-1.47); MONOCYTES PERCENT AUTO 5 % (4-13); Mean Corpuscular HGB 27.6 pg (26.0-34.0); Mean Corpuscular HGB Conc 33.1 g/dL (31.5-36.5); Mean Corpuscular Volume 84 fL (80-100); Mean Platelet Volume 8.9 fL (9.1-12.4); NEUTROPHILS PERCENT AUTO 62 % (41-73); Platelet Count 355 K/mm3 (150-400); RDW Coefficient Variation 14.6 % (11.7-14.2); RDW Standard Deviation 44.4 fL (35.1-46.3); Red Blood Cell Count 5.87 M/mm3 (4.30-5.90); White Blood Cell Count 13.04 K/mm3 (4.00-11.30)
[2020-12-15 22:41] LABS: Alanine Aminotransfer (ALT/SGP 141 U/L (12-78); Albumin, Blood 3.5 g/dL (3.4-5.0); Albumin/Globulin Ratio 0.8 (0.8-1.8); Alk Phos 143 U/L (50-136); Anion Gap 8 mmol/L (6-16); Aspartate Aminotrans (AST/SGOT 22 U/L (12-37); Bilirubin, Total 0.2 mg/dL (0.1-1.0); Blood Urea Nitrogen 7 mg/dL (8-24); Bun/Creatinine Ratio 9.2 (12.0-20.0); CO2, Blood 24 mmol/L (21-32); Calcium, Blood 9.9 mg/dL (8.5-10.1); Chloride, Blood 108 mmol/L (98-108); Creatinine, Blood 0.76 mg/dL (0.60-1.20); Ethanol (Alcohol), Blood, Med 152 mg/dL; Globulin, Blood 4.6 g/dL (2.2-4.0); Glomerular Filtration Rate >60 (60-); Glucose, Blood 175 mg/dL (70-99); Potassium, Blood 3.6 mmol/L (3.5-5.5); Salicylate <1.7 mg/dL (2.8-20.0); Sodium, Blood 140 mmol/L (136-145); Total Protein, Blood 8.1 g/dL (6.4-8.2)
[2020-12-16 01:37] LABS: SARS-Cov-2 (COVID-19) PCR, MMC NEGATIVE (NEGATIVE)
[2020-12-16 04:55] LABS: Source, Urine Clean Catch
[2020-12-16 05:01] LABS: Bilirubin, Urine Neg (Neg); Blood, Urine Neg (Neg); Glucose Qualitative, Urine Neg (Neg); Ketones, Urine Neg (Neg); Leukocyte Esterase, Urine Neg (Neg); Nitrite, Urine Neg (Neg); Protein, Urine Neg (Neg); Specific Gravity, Urine 1.015 (1.003-1.022); Urobilinogen, Urine NORM (Normal); pH, Urine 6.5 (5.0-8.0)
[2020-12-16 05:03] LABS: Appearance, Urine Clear (Clear); Color, Urine Yellow (P-Yellow)
[2020-12-16 05:22] LABS: U Amphetamine Screen Not Detected; U Barbituate Screen Not Detected; U Benzodiazapine Screen Not Detected; U Buprenorphine Screen Not Detected; U Cannabinoids Screen Not Detected; U Cocaine Screen Not Detected; U Methadone Screen Not Detected; U Methamphetamine Screen Not Detected; U Opiates Screen Not Detected; U Oxycodone Screen Not Detected; U Phencyclidine Screen Not Detected; U Propoxyphene Screen Not Detected
== END 2020-12-16 06:59 | disposition home or self-care (01) ==
LOC: ER 20:56 → EOR 20:57
PROVIDERS: Physician Assistant; ADMIT Student in an Organized Health Care Education/Training Program
DX: F10.129 Alcohol abuse with intoxication, unspecified (principal); T43.215A Adverse effect of selective serotonin and norepinephrine reuptake inhibitors, initial encounter; F31.9 Bipolar disorder, unspecified; Z79.899 Other long term (current) drug therapy; Z20.822 Contact with and (suspected) exposure to COVID-19; Y90.9 Presence of alcohol in blood, level not specified
CPT/HCPCS: 36415; 80053; 81003; 85025; 93005; 93010; 99285-25; G0378; G0480; J7030; U0004

== ENCOUNTER 2021-01-29 14:46 | Observation (INO) | payer MEDICARE, OTHER ==
[~2021-01-29] VITALS: Ht 188 cm; Wt 115.7 kg
[2021-01-29 15:15] LABS: BASOPHILS ABSOLUTE AUTO 0.09 K/mm3 (0.00-0.23); BASOPHILS PERCENT AUTO 1 % (0-2); EOSINOPHILS PERCENT AUTO 2 % (0-6); Hematocrit 49.5 % (37.0-53.0); Hemoglobin 16.2 g/dL (13.5-17.5); IMMATURE GRAN ABSOLUTE AUTO 0.06 K/mm3 (0.00-0.10); IMMATURE GRAN PERCENT AUTO 1 % (0-1); LYMPHOCYTES ABSOLUTE AUTO 2.72 K/mm3 (0.84-5.20); LYMPHOCYTES PERCENT AUTO 24 % (21-46); MONOCYTES PERCENT AUTO 5 % (4-13); Mean Corpuscular HGB 27.1 pg (26.0-34.0); Mean Corpuscular HGB Conc 32.7 g/dL (31.5-36.5); Mean Corpuscular Volume 83 fL (80-100); Mean Platelet Volume 9.2 fL (9.1-12.4); NEUTROPHILS ABSOLUTE AUTO 7.56 K/mm3 (1.96-9.15); NEUTROPHILS PERCENT AUTO 67 % (41-73); Platelet Count 331 K/mm3 (150-400); RDW Coefficient Variation 13.6 % (11.7-14.2); RDW Standard Deviation 41.4 fL (35.1-46.3); Red Blood Cell Count 5.97 M/mm3 (4.30-5.90); White Blood Cell Count 11.23 K/mm3 (4.00-11.30)
[2021-01-29 15:22] LABS: Source, Urine Clean Catch
[2021-01-29 15:31] LABS: Appearance, Urine Clear (Clear); Bilirubin, Urine Neg (Neg); Blood, Urine Neg (Neg); Glucose Qualitative, Urine Neg (Neg); Ketones, Urine Neg (Neg); Leukocyte Esterase, Urine Neg (Neg); Nitrite, Urine Neg (Neg); Protein, Urine Neg (Neg); Urobilinogen, Urine NORM (Normal)
[2021-01-29 15:33] LABS: Color, Urine Pale Yellow (P-Yellow)
[2021-01-29 15:34] LABS: Alanine Aminotransfer (ALT/SGP 50 U/L (12-78); Albumin, Blood 3.7 g/dL (3.4-5.0); Albumin/Globulin Ratio 0.9 (0.8-1.8); Alk Phos 107 U/L (50-136); Anion Gap 9 mmol/L (6-16); Aspartate Aminotrans (AST/SGOT 27 U/L (12-37); Bilirubin, Total 0.2 mg/dL (0.1-1.0); Blood Urea Nitrogen 9 mg/dL (8-24); Bun/Creatinine Ratio 11.9 (12.0-20.0); CO2, Blood 23 mmol/L (21-32); Calcium, Blood 8.5 mg/dL (8.5-10.1); Chloride, Blood 108 mmol/L (98-108); Creatinine, Blood 0.75 mg/dL (0.60-1.20); Ethanol (Alcohol), Blood, Med 226 mg/dL; Globulin, Blood 3.9 g/dL (2.2-4.0); Glomerular Filtration Rate >60 (60-); Glucose, Blood 217 mg/dL (70-99); Potassium, Blood 3.8 mmol/L (3.5-5.5); Salicylate <1.7 mg/dL (2.8-20.0); Sodium, Blood 140 mmol/L (136-145); Total Protein, Blood 7.6 g/dL (6.4-8.2)
[2021-01-29 15:46] LABS: U Amphetamine Screen DETECTED; U Barbituate Screen Not Detected; U Benzodiazapine Screen Not Detected; U Buprenorphine Screen Not Detected; U Cannabinoids Screen Not Detected; U Cocaine Screen Not Detected; U Methadone Screen Not Detected; U Methamphetamine Screen Not Detected; U Opiates Screen Not Detected; U Oxycodone Screen Not Detected; U Phencyclidine Screen Not Detected; U Propoxyphene Screen Not Detected
[2021-01-29 15:47] LABS: Acetaminophen, Random <2.0 ug/mL (10.0-30.0)
[2021-01-29 16:13] LABS: Influenza A, PCR NEGATIVE (NEGATIVE); Influenza B, PCR NEGATIVE (NEGATIVE); Resp Syncytial Virus, PCR NEGATIVE (NEGATIVE); SARS-Cov-2 (COVID-19) PCR, MMC NEGATIVE (NEGATIVE)
[2021-01-30] MEDS ORDERED: CHLO25 PO (08:15)
== END 2021-01-30 08:34 | disposition home or self-care (01) ==
LOC: ER 14:46 → EOR 14:47
PROVIDERS: ADMIT Emergency Medicine
DX: F32.A Depression, unspecified (principal); F10.10 Alcohol abuse, uncomplicated; Z20.822 Contact with and (suspected) exposure to COVID-19; R00.0 Tachycardia, unspecified
CPT/HCPCS: 0241U; 80053; 81003; 85025; 93005; 93010; 99285-25; A9270; G0378; G0480

== ENCOUNTER 2021-01-30 18:39 | Emergency (ER) | payer MEDICARE, OTHER ==
[~2021-01-30] VITALS: Ht 188 cm; Wt 113.4 kg
== END 2021-01-30 19:57 | disposition home or self-care (01) ==
LOC: ER 18:39
DX: F10.10 Alcohol abuse, uncomplicated (principal); K21.9 Gastro-esophageal reflux disease without esophagitis; Z79.899 Other long term (current) drug therapy
CPT/HCPCS: 99283

== ENCOUNTER 2021-02-02 18:16 | Observation (INO) | payer MEDICARE, OTHER ==
[~2021-02-02] VITALS: Ht 182.9 cm; Wt 108.9 kg
[2021-02-02 19:34] LABS: BASOPHILS ABSOLUTE AUTO 0.12 K/mm3 (0.00-0.23); BASOPHILS PERCENT AUTO 1 % (0-2); EOSINOPHILS ABSOLUTE AUTO 0.13 K/mm3 (0.00-0.68); EOSINOPHILS PERCENT AUTO 2 % (0-6); Hematocrit 45.6 % (37.0-53.0); IMMATURE GRAN ABSOLUTE AUTO 0.03 K/mm3 (0.00-0.10); IMMATURE GRAN PERCENT AUTO 0 % (0-1); LYMPHOCYTES ABSOLUTE AUTO 2.81 K/mm3 (0.84-5.20); LYMPHOCYTES PERCENT AUTO 34 % (21-46); MONOCYTES PERCENT AUTO 10 % (4-13); Mean Corpuscular HGB 26.9 pg (26.0-34.0); Mean Corpuscular HGB Conc 32.9 g/dL (31.5-36.5); Mean Corpuscular Volume 82 fL (80-100); NEUTROPHILS ABSOLUTE AUTO 4.49 K/mm3 (1.96-9.15); NEUTROPHILS PERCENT AUTO 54 % (41-73); Platelet Count 275 K/mm3 (150-400); RDW Standard Deviation 41.2 fL (35.1-46.3); Red Blood Cell Count 5.57 M/mm3 (4.30-5.90); White Blood Cell Count 8.38 K/mm3 (4.00-11.30)
[2021-02-02 19:57] LABS: Alanine Aminotransfer (ALT/SGP 102 U/L (12-78); Albumin, Blood 3.6 g/dL (3.4-5.0); Alk Phos 121 U/L (50-136); Anion Gap 8 mmol/L (6-16); Aspartate Aminotrans (AST/SGOT 77 U/L (12-37); Bilirubin, Total 0.2 mg/dL (0.1-1.0); Blood Urea Nitrogen 9 mg/dL (8-24); Bun/Creatinine Ratio 10.8 (12.0-20.0); CO2, Blood 26 mmol/L (21-32); Calcium, Blood 8.7 mg/dL (8.5-10.1); Chloride, Blood 108 mmol/L (98-108); Creatinine, Blood 0.83 mg/dL (0.60-1.20); Ethanol (Alcohol), Blood, Med 176 mg/dL; Free Thyroxine 0.78 ng/dL (0.70-1.60); Globulin, Blood 3.6 g/dL (2.2-4.0); Glomerular Filtration Rate >60 (60-); Glucose, Blood 147 mg/dL (70-99); Potassium, Blood 3.4 mmol/L (3.5-5.5); Salicylate <1.7 mg/dL (2.8-20.0); Sodium, Blood 142 mmol/L (136-145); Total Protein, Blood 7.2 g/dL (6.4-8.2)
[2021-02-02 20:00] LABS: Acetaminophen, Random <2.0 ug/mL (10.0-30.0)
[2021-02-02 20:31] LABS: U Amphetamine Screen Not Detected; U Barbituate Screen Not Detected; U Benzodiazapine Screen DETECTED; U Buprenorphine Screen Not Detected; U Cannabinoids Screen Not Detected; U Cocaine Screen Not Detected; U Methadone Screen Not Detected; U Methamphetamine Screen Not Detected; U Opiates Screen Not Detected; U Oxycodone Screen Not Detected; U Phencyclidine Screen Not Detected; U Propoxyphene Screen Not Detected
[2021-02-02 20:40] LABS: Influenza A, PCR NEGATIVE (NEGATIVE); Influenza B, PCR NEGATIVE (NEGATIVE); Resp Syncytial Virus, PCR NEGATIVE (NEGATIVE); SARS-Cov-2 (COVID-19) PCR, MMC NEGATIVE (NEGATIVE)
== END 2021-02-04 16:20 | disposition home or self-care (01) ==
LOC: ER 18:16 → EOR 18:17
PROVIDERS: Physician Assistant; ADMIT Emergency Medicine
DX: F31.9 Bipolar disorder, unspecified (principal); K21.9 Gastro-esophageal reflux disease without esophagitis; R00.0 Tachycardia, unspecified; E87.6 Hypokalemia; F19.10 Other psychoactive substance abuse, uncomplicated; F10.10 Alcohol abuse, uncomplicated; Z20.822 Contact with and (suspected) exposure to COVID-19
CPT/HCPCS: 0241U; 36415; 80053; 84439; 84443; 85025; 93005; 93010; 99285-25; A9270; G0378; G0480; J7120

== ENCOUNTER 2021-04-07 19:47 | Observation (INO) | payer MEDICARE, OTHER ==
[~2021-04-07] VITALS: Ht 188 cm; Wt 113.4 kg
[2021-04-07 20:15] LABS: BASOPHILS ABSOLUTE AUTO 0.07 K/mm3 (0.00-0.23); BASOPHILS PERCENT AUTO 1 % (0-2); EOSINOPHILS ABSOLUTE AUTO 0.04 K/mm3 (0.00-0.68); EOSINOPHILS PERCENT AUTO 0 % (0-6); Hematocrit 47.6 % (37.0-53.0); Hemoglobin 15.6 g/dL (13.5-17.5); IMMATURE GRAN ABSOLUTE AUTO 0.03 K/mm3 (0.00-0.10); IMMATURE GRAN PERCENT AUTO 0 % (0-1); LYMPHOCYTES ABSOLUTE AUTO 2.51 K/mm3 (0.84-5.20); LYMPHOCYTES PERCENT AUTO 24 % (21-46); MONOCYTES ABSOLUTE AUTO 0.62 K/mm3 (0.16-1.47); MONOCYTES PERCENT AUTO 6 % (4-13); Mean Corpuscular HGB 26.9 pg (26.0-34.0); Mean Corpuscular HGB Conc 32.8 g/dL (31.5-36.5); Mean Corpuscular Volume 82 fL (80-100); Mean Platelet Volume 9.5 fL (9.1-12.4); NEUTROPHILS ABSOLUTE AUTO 7.05 K/mm3 (1.96-9.15); NEUTROPHILS PERCENT AUTO 68 % (41-73); Platelet Count 269 K/mm3 (150-400); RDW Coefficient Variation 14.6 % (11.7-14.2); RDW Standard Deviation 44.1 fL (35.1-46.3); Red Blood Cell Count 5.81 M/mm3 (4.30-5.90); White Blood Cell Count 10.32 K/mm3 (4.00-11.30)
[2021-04-07] MEDS ORDERED: TRAZ100 PO (20:32)
[2021-04-07] MEDS ORDERED: METPHE20 PO (20:33)
[2021-04-07 20:35] LABS: U Amphetamine Screen Not Detected; U Barbituate Screen Not Detected; U Benzodiazapine Screen Not Detected; U Buprenorphine Screen Not Detected; U Cannabinoids Screen Not Detected; U Cocaine Screen Not Detected; U Methadone Screen Not Detected; U Methamphetamine Screen Not Detected; U Opiates Screen Not Detected; U Oxycodone Screen Not Detected; U Phencyclidine Screen Not Detected; U Propoxyphene Screen Not Detected
[2021-04-07 20:50] LABS: Alanine Aminotransfer (ALT/SGP 53 U/L (12-78); Albumin, Blood 3.7 g/dL (3.4-5.0); Albumin/Globulin Ratio 0.9 (0.8-1.8); Alk Phos 116 U/L (50-136); Anion Gap 6 mmol/L (6-16); Aspartate Aminotrans (AST/SGOT 12 U/L (12-37); Bilirubin, Total 0.3 mg/dL (0.1-1.0); Blood Urea Nitrogen 10 mg/dL (8-24); Bun/Creatinine Ratio 8.5 (12.0-20.0); CO2, Blood 27 mmol/L (21-32); Calcium, Blood 9.2 mg/dL (8.5-10.1); Chloride, Blood 103 mmol/L (98-108); Creatinine, Blood 1.17 mg/dL (0.60-1.20); Ethanol (Alcohol), Blood, Med <3 mg/dL; Free Thyroxine 0.77 ng/dL (0.70-1.60); Globulin, Blood 4.2 g/dL (2.2-4.0); Glomerular Filtration Rate >60 (60-); Glucose, Blood 307 mg/dL (70-99); Potassium, Blood 2.9 mmol/L (3.5-5.5); Salicylate 2.5 mg/dL (2.8-20.0); Sodium, Blood 136 mmol/L (136-145); Total Protein, Blood 7.9 g/dL (6.4-8.2)
[2021-04-07 20:55] LABS: Acetaminophen, Random <2.0 ug/mL (10.0-30.0)
--- NOTE | 2021-04-08 03:07 | NUR ---
ADMISSION: PT ARRIVED TO THE FLOOR AND SCOOTED FROM GURNEY TO BED; HE CHANGED INTO THE PAPER SCRUBS AND IS RESTING COMFORTABLY. HE IS A GOOD HISTORIAN AND ANSWERED ALL QUESTIONS APPROPRIATELY. THE PT IS ON TELE: SR/80s VIA TELE MONITOR. ALL SI DOCUMENTION HAS BEEN INITIATED AND PT WAS INCLUDED IN THE CIVIL RIGHTS AND SAFETY PLAN. DOCUMENT IS IN HIS CHART. THERE ARE 1:1 OBSERVATION AND CONTINUOUS CAMERA/VIDEO MONITORING. THE BED IS IN THE LOWEST POSITION AND WE'LL CONTINUE TO MONITOR THE REMAINDER OF THE SHIFT.
--- NOTE | 2021-04-08 05:21 | NUR ---
SHIFT SUMMARY: PT HAS BEEN A/OX4. HE WAS A VERY PLEASANT AND COOPERATIVE WITH ALL CARE. PER ANNOUNCER: SR/80s. HE DID HAVE A SMALL RUN OF TACHYCARDIA IN THE 140s, BUT THAT RESOLVED. THERE IS A SITTER IN THE ROOM. NO OTHER ACUTE CHANGES TO REPORT THIS NOC SHIFT AND WE'LL CONTINUE TO MONITOR THE REST OF THE SHIFT.
[2021-04-08 06:01] LABS: Anion Gap 6 mmol/L (6-16); Blood Urea Nitrogen 10 mg/dL (8-24); Bun/Creatinine Ratio 10.2 (12.0-20.0); CO2, Blood 27 mmol/L (21-32); Calcium, Blood 8.9 mg/dL (8.5-10.1); Chloride, Blood 107 mmol/L (98-108); Creatinine, Blood 0.98 mg/dL (0.60-1.20); Glomerular Filtration Rate >60 (60-); Glucose, Blood 145 mg/dL (70-99); Potassium, Blood 3.1 mmol/L (3.5-5.5); Sodium, Blood 140 mmol/L (136-145)
--- NOTE | 2021-04-08 09:05 | NUR ---
PATIENT IS SLEEPY, STATES HE IS CONFUSED. ASKS ABOUT GETTING HIS NORMAL HOME MEDICATIONS.
--- NOTE | 2021-04-08 09:29 | NUR ---
DR. CAPONE HERE FOR ROUNDS. FELICITAS, THE PRECOMMITMENT HVAC ENGINEER HERE AND SPEAKING WITH PATIENT. RETURNED CALL TO [facility] CONTROL [phone] WITH FOLLOW UP QUESTION ANSWERED. SHE REQUESTED A FOLLOW UP ASA LEVEL BE DRAWN AND VERIFIED WITH DR. CAPONE TO ORDER IT.
--- NOTE | 2021-04-08 10:46 | NUR ---
PATIENT ASKED ABOUT RESUMING HOME MEDS. VERIFIED LIST IN MED RECONCILIATION AREA OF CHART CORRECT. SPOKE WITH DR. CAPONE ABOUT IT. STATES HE WILL WAIT FOR THE PSYCHIATRIST TO SEE HIM FIRST ABOUT MEDS.
--- NOTE | 2021-04-08 13:05 | NUR ---
UPDATED BHARATHI WITH POISON CONTROL ON PATIENT'S STATUS.
--- NOTE | 2021-04-08 13:48 | NUR ---
PATIENT ASKING ABOUT RESUMING HOME MEDS. REMINDED HIM WE ARE WAITING ON THE PSYCHIATRIST TO SEE HIM TO SEE WHAT MEDS CAN BE RESUMED. PATIENT STATES "I'M CONFUSED. DEPRESSED. AGITATED. I KNOW THEY WILL TELL ME IT'S TOO LATE TO TAKE MY RITALIN"
--- NOTE | 2021-04-08 15:48 | NUR ---
PATIENT ASKING IF HE CAN CONTACT HIS OWN PSYCHIATRIST DIRECTLY BECAUSE HE IS CONCERNED ABOUT GETTING REFILLS FOR HIS MEDS SEND TO [facility]. I TOLD HIM THAT WAS ALREADY THE PHARMACY LISTED IN HIS MED RECONCILIATION PAGE AND THAT'S WHERE RX'S WOULD GO WHENEVER HE IS DISCHARGE.
--- NOTE | 2021-04-08 16:12 | NUR ---
PSYCHIATRIST AT BEDSIDE.
--- NOTE | 2021-04-08 17:18 | NUR ---
PATIENT DISCHARGED AT 1700 TO [facility] VIA T[facility]I WITH DISCHARGE PAPERWORK IN HIS PERSONAL BELONGING BAG. AAO X 4. NO COMPLAINTS VOICED AT DISCHARGE
--- NOTE | 2021-04-08 17:30 | NUR ---
DOWNGRADED TO LOW RISK SUICIDAL MONITORING. SURVEILENCE CAMERA IN USE. TOLERATED PO FOOD AND FLUIDS. HAD 1:1 SITTER ALL DAY UNTIL APPROXIMATELY 1630 WHEN ORDERS WERE DOWNGRADED TO LOW RISK. PATIENT SLEPT A LARGE PART OF THE DAY. IVF INFUSING PER MD ORDER. MEDICATED PER E-MAR. COMMUNICATED WITH POISON CONTROL WHEN NECESSARY. PATIENT IS ON A 5 DAY 2 PYSICIAN HOLD. FELICITAS THE PRECOMMITMENT ASSEMBLED WOOD PRODUCTS REPAIRER SPOKE WITH THE PATIENT. NO SUICIDAL IDEATIONS VOICED TO THIS NURSE. WILL MONITOR.
--- NOTE | 2021-04-08 21:01 | NUR ---
SUICIDE ASSESSMENT: PATIENT REPORTS FEELING CALM AND RELAXED. IS HAPPY WITH THE PLAN OF CARE AND REPORTS HAVING A GOOD SUPPORT SYSTEM.
[2021-04-09 05:24] LABS: Anion Gap 6 mmol/L (6-16); Blood Urea Nitrogen 14 mg/dL (8-24); Bun/Creatinine Ratio 15.6 (12.0-20.0); CO2, Blood 23 mmol/L (21-32); Calcium, Blood 9.1 mg/dL (8.5-10.1); Chloride, Blood 113 mmol/L (98-108); Glomerular Filtration Rate >60 (60-); Glucose, Blood 120 mg/dL (70-99); Potassium, Blood 3.6 mmol/L (3.5-5.5); Sodium, Blood 142 mmol/L (136-145)
--- NOTE | 2021-04-09 05:54 | NUR ---
SHIFT SUMMARY: PATIENT REPORTS NO SUICIDE IDEATIONS THIS SHIFT. PATIENT HAS NOT SLEPT WELL. BP IS TRENDING UPWARDS, PATIENT IS ASYMPTOMATIC. TELI. TECH REPORTED AN INCREASE IN HEART RATE TO 140'S NON SUSTAINING. THIS IS OBSERVED DURING URINATION IN THE URINAL. TELI READINMG AT THIS TIME IN NSR @ 79 PER TELI. TECH. PATIENT IS ON LOW SUICIDE PRECAUTIONS AT THIS TIME.
--- NOTE | 2021-04-09 09:46 | NUR ---
@ 0811, PATIENT VOICES NO SUICIDAL IDEATIONS. PLEASANT AND COOPERATIVE. SUICIDE WATCH LOW. SURVEILENCE CAMERA AND SUICIDE PRECAUTIONS IN USE. WILL MONITOR.
--- NOTE | 2021-04-09 16:48 | NUR ---
AWAKE AND ALERT. SMILING AND PLEASANT. PATIENT HAS WATCHED TV AND JOTTED NOTES FROM THE TV SHOW DEALING WITH AUTO PARTS. MEDICATED PER E-MAR. NO SUICIDAL IDEATIONS VOICED. STATED HE HOPED TO GET A GOOD NIGHT OF SLEEP TONIGHT THAT LAST NIGHT WAS INTERMITTENT WITH SLEEPING. APPETITE GOOD. SHOWERED TODAY. SUICIDE PRECAUTIONS STILL IN PLACE. CAMERA IN USE. WILL MONITOR.
--- NOTE | 2021-04-09 20:29 | NUR ---
CARDIAC: PATIENT HASZ A 3 ON VIEWS SCORE FOR HTN AND TACHYCARDIA. ENERGY SALES BROKER MD GONZALES NOTIFIED AND ORDERS TO START LOPRESSOR ARE OBTAINED.
--- NOTE | 2021-04-10 06:47 | NUR ---
SHIFT SUMMARY: PATIENT REPORTS NO SUICIDE IDEATIONS THIS SHIFT. 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 POOR EFFECT FROM HS TRAZODONE. BP AND HEART RATE WERE ELEVATED, PATIENT HAD SLIGHT HEADACHE. DR NUNEZ WAS NOTIFIED AND ORDER FOR LOPRESSOR BID WAS OBTAINED. PATIENT HAD GOOD EFFECT FROM LOPRESSOR ON BOTH BP AND HEART RATE.
--- NOTE | 2021-04-10 16:43 | NUR ---
PATIENT WAS PLEASANT COOPERATIVE AND VOICED NO SUICIDAL IDEATIONS TODAY. WATCHED TV AND MADE NOTES MOST OF THE DAY. INDEPENDENT AMBULATING TO THE BATHROOM. VOIDED WITHOUT PROBLEMS AND HAD A BM TODAY. SURVEILENCE CAMERA IN USE. SUICIDE PRECAUTIONS STILL IN USE. PATIENT IS CONSIDERED A LOW SUICIDE RISK AFTER PSYCHIATRIST ASSESSMENT ON 04/08. MEDICATED PER E-APR. APPETITE GOOD. TWO SALINE LOCKS INTACT RIGHT AC AND RIGHT HAND. WILL MONITOR.
--- NOTE | 2021-04-11 03:35 | NUR ---
SHIFT SUMMARY: BP AND HEART RATE ARE IMPROVED WITH THE ADDITION OF LOPRESSOR YESTERDAY. PATIENT NAPPED FOR APPROXIMATLY 3 HOURS THIS EVENING. REFUSE HIS TRAZADONE WHEN HE WOKE AT MIDNIGHT. "I FEEL TIRED I DON'T NEED IT. SOMETIMES THE MEDICINE MAKES ME FEEL SLEEPY IN THE MORNING" PATIENT ROUTINELY WANTS TO WAIT UNTIL 2300 OR LATER TO TAKE TRAZADONE. APPETITE IS GOOD, PATIENT HAS REQUESTED NUMEROUS SNACKS. NO SUICIDE IDEATIONS THIS SHIFT.
--- NOTE | 2021-04-11 09:13 | NUR ---
PLEASANT AND COOPERATIVE. NO SUICIDAL IDEATIONS VOICED. HL INTACT R AC AND R FOREARM. WILL MONITOR.
[2021-04-11] MEDS ORDERED: AMPDEX5 PO (12:23)
--- NOTE | 2021-04-11 13:25 | NUR ---
DISCHARGE INSTRUCTIONS COMPLETED AND SALINE LOCK X 2 REMOVED PER REI CASILLAS FOLLOW UP CLERK NURSE. PATIENT REPORTS HAVING ALL BELONGINGS. DISCHARGED HOME PER TAXI.
== END 2021-04-11 13:10 | disposition home or self-care (01) ==
LOC: ER 19:47 → MEDS 19:48 → ENPENDDIS 04-11 11:09 → MEDS 04-11 13:10
PROVIDERS: Internal Medicine; Student in an Organized Health Care Education/Training Program; ADMIT Family Medicine
DX: T43.212A Poisoning by selective serotonin and norepinephrine reuptake inhibitors, intentional self-harm, initial encounter (principal); T43.592A Poisoning by other antipsychotics and neuroleptics, intentional self-harm, initial encounter; T47.1X2A Poisoning by other antacids and anti-gastric-secretion drugs, intentional self-harm, initial encounter; F31.9 Bipolar disorder, unspecified; R73.9 Hyperglycemia, unspecified; E87.6 Hypokalemia; K74.60 Unspecified cirrhosis of liver; R94.31 Abnormal electrocardiogram [ECG] [EKG]; F90.9 Attention-deficit hyperactivity disorder, unspecified type; F43.10 Post-traumatic stress disorder, unspecified; F19.11 Other psychoactive substance abuse, in remission; F10.11 Alcohol abuse, in remission; Z86.19 Personal history of other infectious and parasitic diseases
CPT/HCPCS: 36415; 80048; 80053; 82947; 83036; 83735; 84439; 84443; 85025; 93005; 93010; 96365; 96366; 96367; 99285-25; A9270; G0480; J3475; J3480; J7030

== ENCOUNTER → 2021-05-16 | Outpatient (CLI) | payer MEDICARE, OTHER ==
[~2021-05-16] MED LIST changes: +METPHE20 PO; +METPHE20CR PO; +TRAZ100 PO
[2021-05-16 19:29] LABS: Anion Gap 7 mmol/L (6-16); Blood Urea Nitrogen 6 mg/dL (8-24); CO2, Blood 24 mmol/L (21-32); Calcium, Blood 9.2 mg/dL (8.5-10.1); Chloride, Blood 108 mmol/L (98-108); Creatinine, Blood 0.75 mg/dL (0.60-1.20); Glomerular Filtration Rate >60 (60-); Glucose, Blood 169 mg/dL (70-99); Potassium, Blood 3.4 mmol/L (3.5-5.5); Sodium, Blood 139 mmol/L (136-145)
== END ==
LOC: LAB SHORT 15:20
PROVIDERS: Internal Medicine
DX: K70.30 Alcoholic cirrhosis of liver without ascites (principal)
CPT/HCPCS: 80048; 82105

== ENCOUNTER 2021-06-03 14:21 | Observation (INO) | payer MEDICARE, OTHER ==
[~2021-06-03] VITALS: Ht 188 cm; Wt 119.2 kg
[2021-06-03 15:22] LABS: BASOPHILS ABSOLUTE AUTO 0.08 K/mm3 (0.00-0.23); BASOPHILS PERCENT AUTO 1 % (0-2); EOSINOPHILS ABSOLUTE AUTO 0.12 K/mm3 (0.00-0.68); EOSINOPHILS PERCENT AUTO 1 % (0-6); Hematocrit 43.7 % (37.0-53.0); Hemoglobin 14.6 g/dL (13.5-17.5); IMMATURE GRAN ABSOLUTE AUTO 0.04 K/mm3 (0.00-0.10); IMMATURE GRAN PERCENT AUTO 0 % (0-1); LYMPHOCYTES ABSOLUTE AUTO 1.73 K/mm3 (0.84-5.20); LYMPHOCYTES PERCENT AUTO 18 % (21-46); MONOCYTES ABSOLUTE AUTO 0.89 K/mm3 (0.16-1.47); MONOCYTES PERCENT AUTO 9 % (4-13); Mean Corpuscular HGB 27.2 pg (26.0-34.0); Mean Corpuscular HGB Conc 33.4 g/dL (31.5-36.5); Mean Corpuscular Volume 81 fL (80-100); NEUTROPHILS ABSOLUTE AUTO 6.59 K/mm3 (1.96-9.15); NEUTROPHILS PERCENT AUTO 70 % (41-73); Platelet Count 266 K/mm3 (150-400); RDW Coefficient Variation 14.6 % (11.7-14.2); RDW Standard Deviation 42.8 fL (35.1-46.3); Red Blood Cell Count 5.37 M/mm3 (4.30-5.90); White Blood Cell Count 9.45 K/mm3 (4.00-11.30)
[2021-06-03 15:48] LABS: Alanine Aminotransfer (ALT/SGP 84 U/L (12-78); Albumin, Blood 3.3 g/dL (3.4-5.0); Albumin/Globulin Ratio 0.9 (0.8-1.8); Alk Phos 120 U/L (50-136); Anion Gap 9 mmol/L (6-16); Aspartate Aminotrans (AST/SGOT 60 U/L (12-37); Bilirubin, Total 0.3 mg/dL (0.1-1.0); Blood Urea Nitrogen 5 mg/dL (8-24); Bun/Creatinine Ratio 7.1 (12.0-20.0); CO2, Blood 27 mmol/L (21-32); Calcium, Blood 8.6 mg/dL (8.5-10.1); Chloride, Blood 104 mmol/L (98-108); Ethanol (Alcohol), Blood, Med 38 mg/dL; Globulin, Blood 3.7 g/dL (2.2-4.0); Glomerular Filtration Rate >60 (60-); Glucose, Blood 282 mg/dL (70-99); Potassium, Blood 2.9 mmol/L (3.5-5.5); Salicylate <1.7 mg/dL (2.8-20.0); Sodium, Blood 140 mmol/L (136-145)
[2021-06-03 16:18] LABS: Acetaminophen, Random <2.0 ug/mL (10.0-30.0)
--- NOTE | 2021-06-03 22:05 | NUR ---
REPORT RECIEVED FROM CLEAR COAT SPRAYER CHRISTOPHER Lopez. PATIENT TO ROOM VIA STRETCHER AT 2004, WALKED TO BED. ALERT AND ORIENTED X4, CALM AND COOPERTAIVE WITH CARE. HIGH RISK SI, PATIENT ADMITS TO STILL HAVING SUICIDAL IDEATION, AND THINKING ABOUT A PLAN. 1:1 SITTER, ROOM MITIGATION DONE, PATIENT IN PAPER SCRUBS. 02 SATS 97% ON RA, DENIES SOB. HR SR @98, DENIES CP/PRESSURE. BP STABLE. PATIENT UNABLE TO URINATE AT THE MOMENT. TALKED WITH POISION CONTROL AT 2049, NO NEW RECOMMENDATIONS. SEE SHIFT ASSESSMENT FOR MORE DETAIL.
[2021-06-03 22:35] LABS: Source, Urine Clean Catch
[2021-06-03 22:53] LABS: Appearance, Urine Clear (Clear); Bilirubin, Urine Neg (Neg); Blood, Urine Neg (Neg); Color, Urine Yellow (P-Yellow); Glucose Qualitative, Urine 3+ (Neg); Ketones, Urine Neg (Neg); Leukocyte Esterase, Urine 1+ (Neg); Nitrite, Urine Neg (Neg); Protein, Urine 1+ (Neg); Specific Gravity, Urine 1.015 (1.003-1.022); Urobilinogen, Urine NORM (Normal); pH, Urine 6.5 (5.0-8.0)
[2021-06-03 23:00] LABS: Red Blood Cells, Urine Not Seen /hpf (0-2)
[2021-06-03 23:01] LABS: Bacteria Rare /hpf; Squamous Epithelial Cells Rare /hpf (Few)
[2021-06-03 23:04] LABS: U Amphetamine Screen Not Detected; U Barbituate Screen Not Detected; U Benzodiazapine Screen Not Detected; U Buprenorphine Screen Not Detected; U Cannabinoids Screen Not Detected; U Cocaine Screen Not Detected; U Methadone Screen Not Detected; U Methamphetamine Screen Not Detected; U Opiates Screen Not Detected; U Oxycodone Screen Not Detected; U Phencyclidine Screen Not Detected; U Propoxyphene Screen Not Detected
--- NOTE | 2021-06-04 00:40 | NUR ---
REPORT GIVEN TO METER MECHANIC, PATIENT TO PCU 4.
[2021-06-04 03:32] LABS: BASOPHILS ABSOLUTE AUTO 0.08 K/mm3 (0.00-0.23); BASOPHILS PERCENT AUTO 1 % (0-2); EOSINOPHILS ABSOLUTE AUTO 0.19 K/mm3 (0.00-0.68); EOSINOPHILS PERCENT AUTO 2 % (0-6); Hematocrit 41.5 % (37.0-53.0); IMMATURE GRAN ABSOLUTE AUTO 0.04 K/mm3 (0.00-0.10); IMMATURE GRAN PERCENT AUTO 1 % (0-1); LYMPHOCYTES ABSOLUTE AUTO 1.73 K/mm3 (0.84-5.20); LYMPHOCYTES PERCENT AUTO 20 % (21-46); MONOCYTES ABSOLUTE AUTO 0.76 K/mm3 (0.16-1.47); MONOCYTES PERCENT AUTO 9 % (4-13); Mean Corpuscular HGB 27.2 pg (26.0-34.0); Mean Corpuscular HGB Conc 33.7 g/dL (31.5-36.5); Mean Corpuscular Volume 81 fL (80-100); Mean Platelet Volume 9.1 fL (9.1-12.4); NEUTROPHILS ABSOLUTE AUTO 5.66 K/mm3 (1.96-9.15); NEUTROPHILS PERCENT AUTO 67 % (41-73); Platelet Count 213 K/mm3 (150-400); RDW Coefficient Variation 14.3 % (11.7-14.2); RDW Standard Deviation 41.8 fL (35.1-46.3); Red Blood Cell Count 5.14 M/mm3 (4.30-5.90); White Blood Cell Count 8.46 K/mm3 (4.00-11.30)
[2021-06-04 04:00] LABS: Alanine Aminotransfer (ALT/SGP 73 U/L (12-78); Albumin, Blood 2.9 g/dL (3.4-5.0); Albumin/Globulin Ratio 0.9 (0.8-1.8); Alk Phos 118 U/L (50-136); Anion Gap 7 mmol/L (6-16); Aspartate Aminotrans (AST/SGOT 54 U/L (12-37); Bilirubin, Total 0.5 mg/dL (0.1-1.0); Blood Urea Nitrogen 9 mg/dL (8-24); CO2, Blood 28 mmol/L (21-32); Chloride, Blood 110 mmol/L (98-108); Creatinine, Blood 0.69 mg/dL (0.60-1.20); Globulin, Blood 3.3 g/dL (2.2-4.0); Glomerular Filtration Rate >60 (60-); Glucose, Blood 132 mg/dL (70-99); Potassium, Blood 3.2 mmol/L (3.5-5.5); Sodium, Blood 145 mmol/L (136-145); Total Protein, Blood 6.2 g/dL (6.4-8.2)
--- NOTE | 2021-06-04 05:59 | NUR ---
SHIFT SUMMARY PATIENT REMAINS ALERT AND ORIENTED X4. STATES HE IS STILL FEEELING DEPRESSED AND SUICIDAL. 1:1 SITTER. 02 SATS 97% ON RA, DENIES SOB. HR SR @80-90. BP STABLE. DENIES CP PRESSURE. PATIENT UP TO BEDSIDE COMMODE AND USES URINAL. REPOSITIONS SELF IN BED. SLEPT MOST THE NIGHT. POTASSIUM BEING REPLACED NOW. UPDATED POISON CONTROL AT APPROX 0550.
[2021-06-04 08:10] LABS: HEMOGLOBIN A1C 6.6 % (4.8-5.6)
--- NOTE | 2021-06-04 12:03 | NUR ---
REASSESSMENT PT HAS BEEN RESTING IN BED THROUGHOUT THE MORNING. SPOKE WITH DR. HERRERA AND RECEIVED OK TO DO TELEPSYCH CONSULT. TELEPSYCH CALLED, CURRENTLY WAITING FOR APPOINTMENT TIME. PT CONTINUES TO SAY THAT HE IS SAD AND HAVING SOME SUICIDAL THOUGHTS. HE CONVERSES APPROPRIATELY WITH STAFF, EXPRESSES GRATITUDE TOWARD STAFF, VERY POLITE. LUGNS ARE CLEAR, RA, SR, BP STABLE. DR. VALERIO GAVE OK TO DC BLOOD SUGAR CHECKS GLUCOSE HAS BEEN LESS THAN 150. HE ALSO GAVE OK TO MAKE PT MED WITH TELE, AWAITING BED ASSIGNMENT.
--- NOTE | 2021-06-04 16:53 | NUR ---
SHIFT SUMMARY PT HAS CONTINUED TO REST IN BED THROUGHOUT THE SHIFT. HE GOT UP AND SHOWERED WITH MINIMAL ASSISTANCE AND HE IS ALSO GETTING UP TO THE TOILET WHEN NEEDED. HE CONTINUES TO EXPRESS FEELINGS OF SADNESS. HE IS ALERT AND ORIENTED, LUNGS CLEAR, RA, SR, BP A LITTLE HYPERTENSIVE THIS EVENING WITH SBP 150MMHG. TELEPSYCH CALLED AND UPDATED THAT THEY ARE STILL WORKING ON FINDING A PROVIDER FOR HIS CONSULT. CONTINUING TO MONITOR.
--- NOTE | 2021-06-04 18:41 | NUR ---
TRANSFER. PT TRANSFERRED FROM ICU 2 TO RM 228. THIS RN STAYED WITH PT FOR TRANSFER AND WILL REPORT OFF TO COMMUNICATIONS AND SIGNALS SUPERVISOR RN. PT TOLERATED TRANSFER WELL. ALL BELONGINGS TRANSFERRED WITH PT.
--- NOTE | 2021-06-04 21:04 | NUR ---
TELEHEALTH CONSULTATION IN PROGRESS VIA COMPUTER ON [employer].
--- NOTE | 2021-06-04 21:51 | NUR ---
PT STATES THAT HE DOES NOT CURRENTLY HAVE ANY SUICIDAL THOUGHTS. HE STATES THAT HE FEELS DEPRESSED AND THAT HE HAS NO PURPOSE. HE STATES THAT HE HAS BEEN ATTEMPTING TO GET A JOB DUE TO NOT HAVING ENOUGH MONEY TO PAY FOR GAS OR ANY EXTRAS BESIDES JUST PAYING BILLS, BUT HASN'T BEEN ABLE TO. HE STATES HE FEELS VERY FRUSTRATED. ONE-TO-ONE SITTER PRESENT.
[2021-06-05 04:51] LABS: Anion Gap 5 mmol/L (6-16); Blood Urea Nitrogen 13 mg/dL (8-24); Bun/Creatinine Ratio 17.6 (12.0-20.0); CO2, Blood 29 mmol/L (21-32); Calcium, Blood 8.4 mg/dL (8.5-10.1); Chloride, Blood 108 mmol/L (98-108); Creatinine, Blood 0.74 mg/dL (0.60-1.20); Glomerular Filtration Rate >60 (60-); Glucose, Blood 154 mg/dL (70-99); Potassium, Blood 3.5 mmol/L (3.5-5.5); Sodium, Blood 142 mmol/L (136-145)
--- NOTE | 2021-06-05 05:13 | NUR ---
[facility] NOTIFIED THIS NURSE THAT THE PT EXPERIENCED A 13 BEAT RUN OF V-TACH. PT WAS LYING QUIETLY IN BED WATCHING TV, DENIED ANY SYMPTOMS. PHYSICIAN NOTIFIED, NO NEW ORDERS.
--- NOTE | 2021-06-05 07:00 | NUR ---
SHIFT SUMMARY: ALEX IS A&OX4. VSS, NO ACUTE EVENTS OVERNIGHT. HE HAS DENIED ANY SUICIDAL THOUGHTS WHEN QUERIED BY THIS NURSE. HE HAS BEEN PLEASANT AND COOPERATIVE, TOLERATING PO INTAKE WELL, REPORTS HIS ONLY CURRENT SYMPTOM IS ANXIETY. HE IS LYING IN BED IN PAPER SCRUBS WATCHING TV. REPORT GIVEN TO DAY SHIFT RN.
--- NOTE | 2021-06-05 17:03 | NUR ---
SHIFT SUMMARY PT CONTINUES TO ENDORSE SUICIDAL IDEATION AND PLAN TO THIS RN. HE HAS BEEN PLEASANT AND COOPERATIVE DURING THE SHIFT. EATING AND DRINKING WELL, VOIDING. PLAN IS TO AWAIT IN PSYCH FACILITY TO ACCEPT PATIENT.
--- NOTE | 2021-06-05 19:31 | NUR ---
RECEIVED REPORT AND ASSUMED CARE OF PT. HE IS LYING QUIETLY IN BED WITH HIS EYES CLOSED, RESPIRATIONS EVEN AND UNLABORED. SHORT-CORD CALL LIGHT WITHIN REACH. 1:1 SITTER PRESENT OUTSIDE ROOM.
--- NOTE | 2021-06-05 20:46 | NUR ---
PT STATES THAT HE FEELS DEEPLY SAD AND ANXIOUS. HE STATES THAT HE HAS BEEN HAVING DREAMS OF BEING BACK IN THE [place] AND ABUSING IV DRUGS AGAIN. HE STATES THAT WHEN HE WAKES UP FROM THE DREAMS HE FEELS RELIEVED THAT HE ISN'T BACK IN THAT LIFESTYLE SINCE HE WORKED SO HARD TO GET AWAY FROM IT AND HAS BEEN CLEAN SINCE THE LATE . HE REPORTS FEELING HOPEFUL FOR INPATIENT PLACEMENT AND FEELS THAT HE WILL GET THE HELP THAT HE NEEDS. HE DENIES ANY PHYSICAL SYMPTOMS, JUST EMOTIONAL. 1:1 SITTER PRESENT JUST OUTSIDE DOOR. WCTM.
--- NOTE | 2021-06-06 06:30 | NUR ---
SHIFT SUMMARY: ALEX IS A&OX4. VSS, NO ACUTE EVENTS OVERNIGHT. 1:1 SITTER PRESENT. HE DENIES SUICIDAL THOUGHTS THIS SHIFT STATING THAT HE HAS BEEN EITHER SLEEPING OR IS PREOCCUPIED WITH THOUGHTS ABOUT INPATIENT PLACEMENT AND WHAT THE FUTURE HOLDS. HE IS TOLERATING PO INTAKE WELL, DENIES ANY PHYSICAL SYMPTOMS, AND REPORTS URINATING WITHOUT DIFFICULTY. HE IS SITTING UP IN BED WATCHING TV, SHORT-CORD CALL LIGHT WITHIN REACH. HE IS INDEPENDENT IN THE ROOM BUT DOES CALL STAFF APPROPRIATELY. PLEASANT AND INTERACTIVE WITH STAFF. WCTM UNTIL REPORT IS GIVEN TO DAY SHIFT RN.
--- NOTE | 2021-06-06 14:45 | NUR ---
SITTER 1:1 SITTER REMOVED PER MD. SUICIDE PRECAUTIONS DECREASED. PT CHANCE, UPBEAT.
--- NOTE | 2021-06-06 14:49 | NUR ---
Patient is lying in bed and alert. Pt tells me about the stressors that led to another OD for pt. Pt is more humble than my previous encouters with the pt. He does spend a more than adequate time explaining all the good support and good choices he has made but then he admits to his deeper struggles and requests prayer which I gladly provide. I then get called to a trauma team activation and our conversation gets cut short. Pt does express great gratitude for the prayer and states that it meant a lot and was encouraging and meaningful. I will continue to remain available to patient and family.
--- NOTE | 2021-06-06 18:18 | NUR ---
SHIFT SUMMARY SI PRECAUTIONS DECREASED TO LOW. HAS DENIED SI. HAS BEEN PLEASANT & UPBEAT T/O SHIFT, EVEN MORE SO AFTER 2 PLACES CALLED ABOUT JOB INTERVIEWS. EATING, DRINKING, & VOIDING WELL.
--- NOTE | 2021-06-06 19:45 | NUR ---
PT REPORTS FEELING HOPEFULL TODAY. HE STATES THAT HE WAS CONTACTED ABOUT A COUPLE OF JOB OPPORTUNITIES AND ALSO REPORTS FEELING MUCH MORE RELAXED AFTER HIS MEDICATIONS WERE RESTARTED TODAY. HE STATES THAT HE IS WORKING ON HIS PLAN OF ACTION AND COPING MECHANISMS. HE DEMONSTRATED A MORE POSITIVE AFFECT AND BETTER EYE CONTACT. WCTM.
--- NOTE | 2021-06-07 04:14 | NUR ---
SHIFT SUMMARY: ALEX IS A&OX4. VSS, NO ACUTE EVENTS OVERNIGHT. HE HAS BEEN POSITIVE AND CHEERFUL THIS SHIFT, BRIGHT AFFECT AND SMILING. HE STATES THAT HE HAS BEEN ABLE TO SLEEP OFF AND ON AND FEELS RESTED. TOLERATING PO INTAKE WELL, REPORTS HAVING A COUPLE OF BMs DURING DAY SHIFT AND DENIES ANY DIFFICULTY URINATING. HE USES THE CALL LIGHT APPROPRIATELY. HE IS LYING IN BED WITH THE CALL LIGHT IN REACH. WILL REPORT TO DAY SHIFT RN.
--- NOTE | 2021-06-07 13:59 | NUR ---
DISCHARGE EVALUTATED BY DR HARP. OK FOR DC. CALLED & DISCUSSED THIS w/ HOSPITALIST. PT HAS SAFETY PLAN & REPORTS HE WILL PUT IT ON HIS FRIDGE. HAS PLANS TO CALL SPONSER & REPORTS IS MAKING APPOINTMENT w/ COUNSELOR. ESCORTED PT HE AMBULATED OUT TO TRANSPORTATION. SCRIPT GIVEN.
[2021-06-25] MEDS ORDERED: OMEP20ER PO (21:36)
== END 2021-06-07 14:15 | disposition home or self-care (01) ==
LOC: ER 14:21 → ICUW 20:15 → SURS 20:15 → ICUE 20:15 → SURS 06-04 18:41
PROVIDERS: Family Medicine; Student in an Organized Health Care Education/Training Program; ADMIT Internal Medicine
DX: T43.592A Poisoning by other antipsychotics and neuroleptics, intentional self-harm, initial encounter (principal); T43.632A Poisoning by methylphenidate, intentional self-harm, initial encounter; T43.212A Poisoning by selective serotonin and norepinephrine reuptake inhibitors, intentional self-harm, initial encounter; R00.0 Tachycardia, unspecified; E87.6 Hypokalemia; R73.9 Hyperglycemia, unspecified; K21.9 Gastro-esophageal reflux disease without esophagitis; K72.90 Hepatic failure, unspecified without coma; F10.10 Alcohol abuse, uncomplicated; F19.10 Other psychoactive substance abuse, uncomplicated; F90.9 Attention-deficit hyperactivity disorder, unspecified type; F31.9 Bipolar disorder, unspecified; I10 Essential (primary) hypertension; Y90.1 Blood alcohol level of 20-39 mg/100 ml
CPT/HCPCS: 36415; 80048; 80053; 81001; 82947; 83036; 83735; 85025; 87086; 93005; 93010; 94760; 96365; 96366; 96372; 99285-25; A9270; G0378; G0480; J1650; J3480; J7030; J7050

== ENCOUNTER 2021-06-13 21:19 | Observation (INO) | payer MEDICARE, OTHER ==
[~2021-06-13] VITALS: Ht 182.9 cm; Wt 112.9 kg
[2021-06-13 22:31] LABS: BASOPHILS ABSOLUTE AUTO 0.11 K/mm3 (0.00-0.23); BASOPHILS PERCENT AUTO 1 % (0-2); EOSINOPHILS PERCENT AUTO 1 % (0-6); Hematocrit 46.6 % (37.0-53.0); Hemoglobin 15.4 g/dL (13.5-17.5); IMMATURE GRAN ABSOLUTE AUTO 0.05 K/mm3 (0.00-0.10); IMMATURE GRAN PERCENT AUTO 0 % (0-1); LYMPHOCYTES ABSOLUTE AUTO 2.94 K/mm3 (0.84-5.20); LYMPHOCYTES PERCENT AUTO 24 % (21-46); MONOCYTES ABSOLUTE AUTO 0.83 K/mm3 (0.16-1.47); MONOCYTES PERCENT AUTO 7 % (4-13); Mean Corpuscular HGB 27.2 pg (26.0-34.0); Mean Corpuscular Volume 82 fL (80-100); Mean Platelet Volume 8.7 fL (9.1-12.4); NEUTROPHILS PERCENT AUTO 67 % (41-73); Platelet Count 366 K/mm3 (150-400); RDW Standard Deviation 44.5 fL (35.1-46.3); Red Blood Cell Count 5.67 M/mm3 (4.30-5.90); White Blood Cell Count 12.13 K/mm3 (4.00-11.30)
[2021-06-13 22:52] LABS: Alanine Aminotransfer (ALT/SGP 77 U/L (12-78); Albumin, Blood 3.6 g/dL (3.4-5.0); Albumin/Globulin Ratio 0.8 (0.8-1.8); Alk Phos 133 U/L (50-136); Anion Gap 11 mmol/L (6-16); Aspartate Aminotrans (AST/SGOT 26 U/L (12-37); Bilirubin, Total 0.3 mg/dL (0.1-1.0); Blood Urea Nitrogen 5 mg/dL (8-24); Bun/Creatinine Ratio 6.9 (12.0-20.0); CO2, Blood 23 mmol/L (21-32); Calcium, Blood 8.8 mg/dL (8.5-10.1); Chloride, Blood 106 mmol/L (98-108); Creatinine, Blood 0.73 mg/dL (0.60-1.20); Ethanol (Alcohol), Blood, Med 77 mg/dL; Globulin, Blood 4.3 g/dL (2.2-4.0); Glomerular Filtration Rate >60 (60-); Glucose, Blood 202 mg/dL (70-99); Potassium, Blood 2.9 mmol/L (3.5-5.5); Salicylate <1.7 mg/dL (2.8-20.0); Sodium, Blood 140 mmol/L (136-145); Total Protein, Blood 7.9 g/dL (6.4-8.2)
[2021-06-13 22:55] LABS: Acetaminophen, Random <2.0 ug/mL (10.0-30.0)
[2021-06-13 23:25] LABS: Magnesium, Blood 2.3 mg/dL (1.6-2.4)
[2021-06-13 23:56] LABS: Influenza A, PCR NEGATIVE (NEGATIVE); Influenza B, PCR NEGATIVE (NEGATIVE); Resp Syncytial Virus, PCR NEGATIVE (NEGATIVE); SARS-Cov-2 (COVID-19) PCR, MMC NEGATIVE (NEGATIVE)
[2021-06-14 01:39] LABS: Source, Urine Clean Catch
[2021-06-14 01:50] LABS: Appearance, Urine Clear (Clear); Bilirubin, Urine Neg (Neg); Blood, Urine Neg (Neg); Color, Urine Yellow (P-Yellow); Glucose Qualitative, Urine Neg (Neg); Ketones, Urine Neg (Neg); Leukocyte Esterase, Urine Neg (Neg); Nitrite, Urine Neg (Neg); Protein, Urine 1+ (Neg); Urobilinogen, Urine 1+ (Normal)
[2021-06-14 02:02] LABS: U Amphetamine Screen Not Detected; U Barbituate Screen Not Detected; U Benzodiazapine Screen Not Detected; U Buprenorphine Screen Not Detected; U Cannabinoids Screen Not Detected; U Cocaine Screen Not Detected; U Methadone Screen Not Detected; U Methamphetamine Screen Not Detected; U Opiates Screen Not Detected; U Oxycodone Screen Not Detected; U Phencyclidine Screen Not Detected; U Propoxyphene Screen Not Detected
--- NOTE | 2021-06-14 04:17 | NUR ---
REPORT RECEIVED FROM SHAYE HARRINGTON
--- NOTE | 2021-06-14 04:30 | NUR ---
ASSUMED CARE PATIENT ARRIVED TO ICU ALERT AND RESPONDING TO STAFF. CALM AND COOPERATIVE WITH CARE. NS INF @ 75ML/HR TO 20G IV IN RT FOREARM. PATIENT WAS ABLE TO STAND AND AMBULATE TO BED FROM ER [facility]. BELONGINGS LOCKED IN CUPBOARD INSIDE ROOM.
--- NOTE | 2021-06-14 06:39 | NUR ---
SHIFT SUMMARY PATIENT PLEASANT AND COOPERATIVE WITH CARE. STATES HE IS "SAD" AND "CONFUSED". DENIES ANY DELUSIONS OR HALLUCINATIONS DURING SHIFT. NO URINE OUTPUT SINCE ARRIVING TO ICU. FIRST LITER NS INF @ 75ML/HR. NO SIGNIFICANT EVENTS DURING NIGHT.
[2021-06-14 06:54] LABS: BASOPHILS ABSOLUTE AUTO 0.12 K/mm3 (0.00-0.23); BASOPHILS PERCENT AUTO 1 % (0-2); EOSINOPHILS ABSOLUTE AUTO 0.11 K/mm3 (0.00-0.68); EOSINOPHILS PERCENT AUTO 1 % (0-6); Hematocrit 47.1 % (37.0-53.0); Hemoglobin 15.5 g/dL (13.5-17.5); IMMATURE GRAN ABSOLUTE AUTO 0.05 K/mm3 (0.00-0.10); IMMATURE GRAN PERCENT AUTO 0 % (0-1); LYMPHOCYTES ABSOLUTE AUTO 3.51 K/mm3 (0.84-5.20); LYMPHOCYTES PERCENT AUTO 28 % (21-46); MONOCYTES ABSOLUTE AUTO 1.07 K/mm3 (0.16-1.47); MONOCYTES PERCENT AUTO 9 % (4-13); Mean Corpuscular HGB 27.4 pg (26.0-34.0); Mean Corpuscular HGB Conc 32.9 g/dL (31.5-36.5); Mean Corpuscular Volume 83 fL (80-100); Mean Platelet Volume 8.6 fL (9.1-12.4); NEUTROPHILS ABSOLUTE AUTO 7.64 K/mm3 (1.96-9.15); NEUTROPHILS PERCENT AUTO 61 % (41-73); Platelet Count 343 K/mm3 (150-400); RDW Coefficient Variation 15.3 % (11.7-14.2); RDW Standard Deviation 45.8 fL (35.1-46.3); Red Blood Cell Count 5.65 M/mm3 (4.30-5.90)
[2021-06-14 07:10] LABS: Alanine Aminotransfer (ALT/SGP 71 U/L (12-78); Albumin, Blood 3.4 g/dL (3.4-5.0); Albumin/Globulin Ratio 0.8 (0.8-1.8); Alk Phos 133 U/L (50-136); Anion Gap 5 mmol/L (6-16); Aspartate Aminotrans (AST/SGOT 26 U/L (12-37); Bilirubin, Total 0.3 mg/dL (0.1-1.0); Blood Urea Nitrogen 6 mg/dL (8-24); Bun/Creatinine Ratio 8.5 (12.0-20.0); CO2, Blood 24 mmol/L (21-32); Calcium, Blood 8.6 mg/dL (8.5-10.1); Chloride, Blood 110 mmol/L (98-108); Creatinine, Blood 0.71 mg/dL (0.60-1.20); Globulin, Blood 4.3 g/dL (2.2-4.0); Glomerular Filtration Rate >60 (60-); Glucose, Blood 160 mg/dL (70-99); Potassium, Blood 3.6 mmol/L (3.5-5.5); Sodium, Blood 139 mmol/L (136-145); Total Protein, Blood 7.7 g/dL (6.4-8.2)
--- NOTE | 2021-06-14 13:20 | NUR ---
Patient immediately tells me about his night and the events and thoughts that led to his OD. Pt then talks about his fears, anxiety, pride and personal struggles. He shares about the support systems that he regretfully has let go of, and the help that he feels like he needs now. Pt is tearful at times and yet explains about the hope that he has because of his Sikhism xavier. He states that he always thinks, "I got this," then says, "but then I don't." He states that he feels the hope coming from our conversation. I explore sources of value and meaning, normalize his experience, and provide pastoral middle school counselor, companionship and prayer. Patient responds well and shows signs of increased hope. I will continue to provide emotional/spiritual support.
--- NOTE | 2021-06-14 17:38 | NUR ---
SUMMARY PT RESTING IN BED. A/O X4. DENIES NAUSEA. HAS BEEN TOLERATING REGULAR DIET WELL. PT STATES HE IS STILL SUICIDAL. REPORTS FEELING SAD AND JUST GOT OVERWHELMED AT HOME. HE WAS SUPPOSED TO START A NEW JOB TODAY. DR. HARP IS CONSULTED AND WILL BE IN TO SEE PT TONIGHT. PT HAS 1:1 SITTER DUE TO HIGH RISK SUICIDE. NO RHYTHM CHANGES, NO SIGN OF DISTRESS. WAS DOWNGRADED TO MEDICAL STATUS TODAY.
--- NOTE | 2021-06-14 18:04 | NUR ---
DR. HARP SAW PT AND IS RECOMMENDING [facility]PT [facility]ILITY. CARE MANAGEMENT NOTIFIED.
--- NOTE | 2021-06-14 19:41 | NUR ---
ASSUMPTION OF CARE PT IS ALERT AND ORIENTED, TEARFUL BUT COOROPERATIVE AT THIS TIME. NO S/S OF ACUTE DISTRESS NOTED AT TIME OF ASSESSMENT.
--- NOTE | 2021-06-14 23:22 | NUR ---
REPORT GIVEN TO RN FOR TRANSFER OF PT TO ROOM 348. PT TRANSFERRED VIA WHEELCHAIR W/SITTER LEA. PT IS ALERT AND ORIENTED W/NO COMPLAINTS. NO S/S OF DISTRESS NOTED. BELONGINGS TAKEN TO ROOM WELL.
--- NOTE | 2021-06-15 05:14 | NUR ---
SHIFT SUMARY ASSUMED CARE OF PATIENT AT APPROX 2300, PATIENT IS A&O, VSS ON RA, SITTER AT BEDSIDE, PATIENT DOES HAVE CONTINUED SUICIDAL IDEATION, INDEPENDENT IN THE ROOM, PLEASANT AND COOPERATIVE, DENIES PAIN AND SHORTNESS OF BREATH, NO REQUESTS NOTED THIS SHIFT
--- NOTE | 2021-06-15 18:29 | NUR ---
SUMMARY- PT A/O X4, INDEPENDANT IN ROOM WITH 1:1 SITTER. TOLERATING FOOD AND FLUID. DENIES ANY SUICIDAL IDIATION. IN GOOD SPIRITS. WILLING TO DO ANY RECOMENDATIONS OF DR MAGUIRE. CALL FROM [facility] FOR WORKUP FOR ADMIT FOR INPATIENT PSYCH AT [facility] [phone], THEY WILL CALL TO CONFIRM THAT HE IS ACCEPTED TO FACILITY FOR POSSIBLE TRANSFER RUI.
--- NOTE | 2021-06-16 00:31 | NUR ---
PT DISCHARGED TO [facility], TRANSPORTED WITH SECURE TRANSPORT. IV SITE DC'D. PT A/O X 4, NO C/O PAIN, USED RESTROOM BEFORE D/C, PERSONAL BELONGINGS SENT WITH TRANSPORT. PT CALM, COOPERATIVE AT D/C.
== END 2021-06-16 00:30 ==
LOC: ER 21:19 → ICUW 21:20 → ERHOLD 21:20 → ICUW 06-14 04:16 → MEDS 06-14 23:07
PROVIDERS: Emergency Medicine; ADMIT Internal Medicine
DX: F31.9 Bipolar disorder, unspecified (principal); T43.592A Poisoning by other antipsychotics and neuroleptics, intentional self-harm, initial encounter; T43.212A Poisoning by selective serotonin and norepinephrine reuptake inhibitors, intentional self-harm, initial encounter; F90.9 Attention-deficit hyperactivity disorder, unspecified type; F10.10 Alcohol abuse, uncomplicated; K21.9 Gastro-esophageal reflux disease without esophagitis; I10 Essential (primary) hypertension; R00.0 Tachycardia, unspecified; E87.6 Hypokalemia; Z20.822 Contact with and (suspected) exposure to COVID-19
CPT/HCPCS: 0241U; 36415; 80053; 83735; 85025; 93005; 93010; 96365; 96366; 96372; 99285-25; A9270; G0480; J1650; J3475; J3480; J7030

== ENCOUNTER 2021-07-14 16:51 | Observation (INO) | payer MEDICARE, OTHER ==
[~2021-07-14] VITALS: Ht 188 cm; Wt 117.9 kg
[~2021-07-14 16:51] MED LIST changes: +OMEP20ER PO
[2021-07-14 17:27] LABS: Source, Urine Clean Catch
[2021-07-14 17:41] LABS: Appearance, Urine Clear (Clear); Bilirubin, Urine Neg (Neg); Blood, Urine Neg (Neg); Glucose Qualitative, Urine Neg (Neg); Ketones, Urine Neg (Neg); Leukocyte Esterase, Urine Neg (Neg); Nitrite, Urine Neg (Neg); Protein, Urine Neg (Neg); Urobilinogen, Urine NORM (Normal); pH, Urine 6.5 (5.0-8.0)
[2021-07-14 17:51] LABS: BASOPHILS ABSOLUTE AUTO 0.17 K/mm3 (0.00-0.23); BASOPHILS PERCENT AUTO 1 % (0-2); EOSINOPHILS ABSOLUTE AUTO 0.15 K/mm3 (0.00-0.68); EOSINOPHILS PERCENT AUTO 1 % (0-6); Hematocrit 43.6 % (37.0-53.0); Hemoglobin 14.3 g/dL (13.5-17.5); IMMATURE GRAN ABSOLUTE AUTO 0.08 K/mm3 (0.00-0.10); IMMATURE GRAN PERCENT AUTO 1 % (0-1); LYMPHOCYTES ABSOLUTE AUTO 3.53 K/mm3 (0.84-5.20); LYMPHOCYTES PERCENT AUTO 26 % (21-46); MONOCYTES ABSOLUTE AUTO 0.95 K/mm3 (0.16-1.47); MONOCYTES PERCENT AUTO 7 % (4-13); Mean Corpuscular HGB 26.9 pg (26.0-34.0); Mean Corpuscular HGB Conc 32.8 g/dL (31.5-36.5); Mean Corpuscular Volume 82 fL (80-100); Mean Platelet Volume 8.8 fL (9.1-12.4); NEUTROPHILS ABSOLUTE AUTO 8.77 K/mm3 (1.96-9.15); NEUTROPHILS PERCENT AUTO 64 % (41-73); Platelet Count 302 K/mm3 (150-400); RDW Coefficient Variation 15.1 % (11.7-14.2); Red Blood Cell Count 5.32 M/mm3 (4.30-5.90); White Blood Cell Count 13.65 K/mm3 (4.00-11.30)
[2021-07-14 17:52] LABS: Color, Urine Pale Yellow (P-Yellow)
[2021-07-14 18:02] LABS: U Amphetamine Screen Not Detected; U Barbituate Screen Not Detected; U Benzodiazapine Screen Not Detected; U Buprenorphine Screen Not Detected; U Cannabinoids Screen Not Detected; U Cocaine Screen Not Detected; U Methadone Screen Not Detected; U Methamphetamine Screen Not Detected; U Opiates Screen Not Detected; U Oxycodone Screen Not Detected; U Phencyclidine Screen Not Detected; U Propoxyphene Screen Not Detected
[2021-07-14 18:13] LABS: Ethanol (Alcohol), Blood, Med 245 mg/dL; Salicylate <1.7 mg/dL (2.8-20.0)
[2021-07-14 18:30] LABS: Influenza A, PCR NEGATIVE (NEGATIVE); Influenza B, PCR NEGATIVE (NEGATIVE); Resp Syncytial Virus, PCR NEGATIVE (NEGATIVE); SARS-Cov-2 (COVID-19) PCR, MMC NEGATIVE (NEGATIVE)
[2021-07-14 18:32] LABS: Acetaminophen, Random <2.0 ug/mL (10.0-30.0); Alanine Aminotransfer (ALT/SGP 66 U/L (12-78); Albumin, Blood 3.4 g/dL (3.4-5.0); Albumin/Globulin Ratio 0.8 (0.8-1.8); Alk Phos 136 U/L (50-136); Anion Gap 7 mmol/L (6-16); Aspartate Aminotrans (AST/SGOT 40 U/L (12-37); Bilirubin, Total 0.2 mg/dL (0.1-1.0); Blood Urea Nitrogen 11 mg/dL (8-24); Bun/Creatinine Ratio 12.6 (12.0-20.0); CO2, Blood 23 mmol/L (21-32); Calcium, Blood 8.7 mg/dL (8.5-10.1); Chloride, Blood 111 mmol/L (98-108); Creatinine, Blood 0.87 mg/dL (0.60-1.20); Globulin, Blood 4.1 g/dL (2.2-4.0); Glomerular Filtration Rate 103 (60-); Glucose, Blood 142 mg/dL (70-99); Potassium, Blood 3.3 mmol/L (3.5-5.5); Sodium, Blood 141 mmol/L (136-145); Total Protein, Blood 7.5 g/dL (6.4-8.2)
== END 2021-07-15 08:34 | disposition home or self-care (01) ==
LOC: ER 16:51 → EOR 16:52 → ERHOLD 16:52 → EOR 19:41
PROVIDERS: Physician Assistant; ADMIT Emergency Medicine
DX: F32.A Depression, unspecified (principal); F41.9 Anxiety disorder, unspecified; K21.9 Gastro-esophageal reflux disease without esophagitis; I10 Essential (primary) hypertension; F90.9 Attention-deficit hyperactivity disorder, unspecified type; K74.60 Unspecified cirrhosis of liver; Z20.822 Contact with and (suspected) exposure to COVID-19; F10.20 Alcohol dependence, uncomplicated
CPT/HCPCS: 0241U; 80053; 81003; 85025; 86592; 99285; A9270; G0378; G0480; J7030

== ENCOUNTER 2021-07-29 19:55 | Emergency (ER) | payer MEDICARE, OTHER ==
[~2021-07-29] VITALS: Ht 188 cm; Wt 117.9 kg
[2021-07-29 21:34] LABS: BASOPHILS ABSOLUTE AUTO 0.15 K/mm3 (0.00-0.23); BASOPHILS PERCENT AUTO 1 % (0-2); EOSINOPHILS ABSOLUTE AUTO 0.03 K/mm3 (0.00-0.68); EOSINOPHILS PERCENT AUTO 0 % (0-6); Hematocrit 46.3 % (37.0-53.0); Hemoglobin 15.3 g/dL (13.5-17.5); IMMATURE GRAN ABSOLUTE AUTO 0.07 K/mm3 (0.00-0.10); IMMATURE GRAN PERCENT AUTO 1 % (0-1); LYMPHOCYTES ABSOLUTE AUTO 2.57 K/mm3 (0.84-5.20); LYMPHOCYTES PERCENT AUTO 20 % (21-46); MONOCYTES ABSOLUTE AUTO 0.65 K/mm3 (0.16-1.47); MONOCYTES PERCENT AUTO 5 % (4-13); Mean Corpuscular HGB 27.6 pg (26.0-34.0); Mean Corpuscular Volume 84 fL (80-100); Mean Platelet Volume 8.7 fL (9.1-12.4); NEUTROPHILS ABSOLUTE AUTO 9.64 K/mm3 (1.96-9.15); NEUTROPHILS PERCENT AUTO 74 % (41-73); Platelet Count 421 K/mm3 (150-400); RDW Coefficient Variation 15.6 % (11.7-14.2); RDW Standard Deviation 47.6 fL (35.1-46.3); Red Blood Cell Count 5.54 M/mm3 (4.30-5.90); White Blood Cell Count 13.11 K/mm3 (4.00-11.30)
[2021-07-29 21:56] LABS: Ethanol (Alcohol), Blood, Med 251 mg/dL; Salicylate <1.7 mg/dL (2.8-20.0)
[2021-07-29 22:03] LABS: Alanine Aminotransfer (ALT/SGP 37 U/L (12-78); Albumin, Blood 3.8 g/dL (3.4-5.0); Albumin/Globulin Ratio 0.9 (0.8-1.8); Alk Phos 118 U/L (50-136); Anion Gap 12 mmol/L (6-16); Aspartate Aminotrans (AST/SGOT 23 U/L (12-37); Bilirubin, Total 0.2 mg/dL (0.1-1.0); Blood Urea Nitrogen 5 mg/dL (8-24); Bun/Creatinine Ratio 5.6 (12.0-20.0); CO2, Blood 23 mmol/L (21-32); Calcium, Blood 8.8 mg/dL (8.5-10.1); Chloride, Blood 105 mmol/L (98-108); Creatinine, Blood 0.89 mg/dL (0.60-1.20); Globulin, Blood 4.4 g/dL (2.2-4.0); Glomerular Filtration Rate 102 (60-); Glucose, Blood 221 mg/dL (70-99); Potassium, Blood 3.1 mmol/L (3.5-5.5); Sodium, Blood 140 mmol/L (136-145); Total Protein, Blood 8.2 g/dL (6.4-8.2)
[2021-07-29 22:28] LABS: Source, Urine Clean Catch
[2021-07-29 22:33] LABS: Bilirubin, Urine Neg (Neg); Blood, Urine Neg (Neg); Glucose Qualitative, Urine Neg (Neg); Ketones, Urine Neg (Neg); Leukocyte Esterase, Urine Neg (Neg); Nitrite, Urine Neg (Neg); Protein, Urine 2+ (Neg); Urobilinogen, Urine NORM (Normal)
[2021-07-29 22:46] LABS: Appearance, Urine Clear (Clear); Color, Urine Yellow (P-Yellow)
[2021-07-29 22:47] LABS: Bacteria Not Seen /hpf; Red Blood Cells, Urine Not Seen /hpf (0-2); Squamous Epithelial Cells Rare /hpf (Few); White Blood Cells, Urine Not Seen /hpf (0-5)
[2021-07-29 22:54] LABS: U Amphetamine Screen Not Detected; U Barbituate Screen Not Detected; U Benzodiazapine Screen Not Detected; U Buprenorphine Screen Not Detected; U Cannabinoids Screen Not Detected; U Cocaine Screen Not Detected; U Methadone Screen Not Detected; U Methamphetamine Screen Not Detected; U Opiates Screen Not Detected; U Oxycodone Screen Not Detected; U Phencyclidine Screen Not Detected; U Propoxyphene Screen Not Detected
[2021-07-29 23:09] LABS: Acetaminophen, Random <2.0 ug/mL (10.0-30.0)
== END 2021-07-29 23:39 | disposition home or self-care (01) ==
LOC: ER 19:55
PROVIDERS: Student in an Organized Health Care Education/Training Program
DX: F32.A Depression, unspecified (principal); R45.851 Suicidal ideations; F10.20 Alcohol dependence, uncomplicated; I10 Essential (primary) hypertension; F90.9 Attention-deficit hyperactivity disorder, unspecified type; F11.10 Opioid abuse, uncomplicated; Z79.899 Other long term (current) drug therapy
CPT/HCPCS: 36415; 80053; 81001; 85025; 93005; 93010; G0480

== ENCOUNTER 2021-07-30 23:07 | Inpatient (IN) | payer MEDICARE, OTHER ==
[~2021-07-30] VITALS: Ht 182.9 cm; Wt 117.2 kg
[2021-07-30 23:42] LABS: BASOPHILS ABSOLUTE AUTO 0.16 K/mm3 (0.00-0.23); BASOPHILS PERCENT AUTO 1 % (0-2); EOSINOPHILS ABSOLUTE AUTO 0.07 K/mm3 (0.00-0.68); EOSINOPHILS PERCENT AUTO 1 % (0-6); IMMATURE GRAN ABSOLUTE AUTO 0.05 K/mm3 (0.00-0.10); IMMATURE GRAN PERCENT AUTO 0 % (0-1); LYMPHOCYTES ABSOLUTE AUTO 3.97 K/mm3 (0.84-5.20); LYMPHOCYTES PERCENT AUTO 35 % (21-46); MONOCYTES ABSOLUTE AUTO 1.03 K/mm3 (0.16-1.47); MONOCYTES PERCENT AUTO 9 % (4-13); Mean Corpuscular HGB 27.7 pg (26.0-34.0); Mean Corpuscular HGB Conc 32.6 g/dL (31.5-36.5); Mean Corpuscular Volume 85 fL (80-100); Mean Platelet Volume 8.7 fL (9.1-12.4); NEUTROPHILS ABSOLUTE AUTO 6.16 K/mm3 (1.96-9.15); NEUTROPHILS PERCENT AUTO 54 % (41-73); Platelet Count 349 K/mm3 (150-400); RDW Coefficient Variation 15.8 % (11.7-14.2); RDW Standard Deviation 48.2 fL (35.1-46.3); Red Blood Cell Count 5.06 M/mm3 (4.30-5.90); White Blood Cell Count 11.44 K/mm3 (4.00-11.30)
[2021-07-31 00:05] LABS: Magnesium, Blood 2.6 mg/dL (1.6-2.4); Salicylate <1.7 mg/dL (2.8-20.0)
[2021-07-31 00:12] LABS: Alanine Aminotransfer (ALT/SGP 28 U/L (12-78); Albumin, Blood 3.3 g/dL (3.4-5.0); Albumin/Globulin Ratio 0.9 (0.8-1.8); Alk Phos 104 U/L (50-136); Anion Gap 11 mmol/L (6-16); Aspartate Aminotrans (AST/SGOT 27 U/L (12-37); Bilirubin, Total 0.2 mg/dL (0.1-1.0); Blood Urea Nitrogen 7 mg/dL (8-24); CO2, Blood 24 mmol/L (21-32); Calcium, Blood 8.5 mg/dL (8.5-10.1); Chloride, Blood 106 mmol/L (98-108); Creatinine, Blood 0.88 mg/dL (0.60-1.20); Ethanol (Alcohol), Blood, Med 327 mg/dL; Globulin, Blood 3.8 g/dL (2.2-4.0); Glomerular Filtration Rate 102 (60-); Glucose, Blood 356 mg/dL (70-99); Potassium, Blood 2.8 mmol/L (3.5-5.5); Sodium, Blood 141 mmol/L (136-145); Total Protein, Blood 7.1 g/dL (6.4-8.2)
[2021-07-31 00:14] LABS: Acetaminophen, Random <2.0 ug/mL (10.0-30.0)
[2021-07-31 02:45] LABS: U Amphetamine Screen Not Detected; U Barbituate Screen Not Detected; U Benzodiazapine Screen Not Detected; U Buprenorphine Screen Not Detected; U Cannabinoids Screen Not Detected; U Cocaine Screen Not Detected; U Methadone Screen Not Detected; U Methamphetamine Screen Not Detected; U Opiates Screen Not Detected; U Oxycodone Screen Not Detected; U Phencyclidine Screen Not Detected; U Propoxyphene Screen Not Detected
[2021-07-31 06:34] LABS: BASOPHILS ABSOLUTE AUTO 0.18 K/mm3 (0.00-0.23); BASOPHILS PERCENT AUTO 2 % (0-2); EOSINOPHILS ABSOLUTE AUTO 0.09 K/mm3 (0.00-0.68); EOSINOPHILS PERCENT AUTO 1 % (0-6); Hematocrit 43.6 % (37.0-53.0); Hemoglobin 14.2 g/dL (13.5-17.5); IMMATURE GRAN ABSOLUTE AUTO 0.04 K/mm3 (0.00-0.10); IMMATURE GRAN PERCENT AUTO 1 % (0-1); LYMPHOCYTES ABSOLUTE AUTO 3.49 K/mm3 (0.84-5.20); LYMPHOCYTES PERCENT AUTO 40 % (21-46); MONOCYTES ABSOLUTE AUTO 0.76 K/mm3 (0.16-1.47); MONOCYTES PERCENT AUTO 9 % (4-13); Mean Corpuscular HGB 27.7 pg (26.0-34.0); Mean Corpuscular HGB Conc 32.6 g/dL (31.5-36.5); Mean Corpuscular Volume 85 fL (80-100); Mean Platelet Volume 8.8 fL (9.1-12.4); NEUTROPHILS ABSOLUTE AUTO 4.08 K/mm3 (1.96-9.15); NEUTROPHILS PERCENT AUTO 47 % (41-73); Platelet Count 353 K/mm3 (150-400); RDW Coefficient Variation 15.8 % (11.7-14.2); RDW Standard Deviation 48.8 fL (35.1-46.3); Red Blood Cell Count 5.12 M/mm3 (4.30-5.90); White Blood Cell Count 8.64 K/mm3 (4.00-11.30)
[2021-07-31 06:40] LABS: Bun/Creatinine Ratio 7.1 (12.0-20.0); Calcium, Blood 8.3 mg/dL (8.5-10.1); Creatinine, Blood 0.85 mg/dL (0.60-1.20); Potassium, Blood 3.4 mmol/L (3.5-5.5)
--- NOTE | 2021-07-31 08:18 | NUR ---
AM NOTE... ASSUMED CARE OF PT AT 0700, THE PT IS A&Ox3 ABLE TO STATE HIS NAME, AND WHERE HE IS AT, THE PT WAKES EASILY TO VERBAL STIMULI AND IS ABLE TO ANSWER QUESTIONS, WHEN ASKED IF THE PT KNEW WHY HE WAS HERE HE SAID "NO I DON'T." THEN LATER IN THE CONVERSATION THE PT HAD SAID "I KNOW THAT I TOOK 'TOO MUCH STUFF' BUT NOW I WANT TO GO HOME I DON'T WANT TO HURT MYSELF." THE PT BECAME A LITTLE UPSET WHEN HE WAS TOLD HE WAS ON A 2MD HOLD AND COULD NOT LEAVE. THE PT'S VS STABLE AT THIS TIME AND THE PT DENIES ANY SI/HI FEELINGS. THE PT IS ON RA WITH O2 SATS >90% L/S CLEAR T/O. NO EDEMA IS NOTED ON ASSESSMENT. BT PRESENT AND HYPOACTIVE,ABD IS LARGE AND SOFT BUT VERY TENDER TO PALPATION TO THE RUQ. 1:1 SITTER IS WITH THE PT. WILL CONTINUE TO MONITOR.
[2021-07-31] MEDS ORDERED: METO25ER PO (12:39)
[2021-07-31 13:14] LABS: Magnesium, Blood 2.3 mg/dL (1.6-2.4); Potassium, Blood 3.7 mmol/L (3.5-5.5)
--- NOTE | 2021-07-31 17:35 | NUR ---
SHIFT SUMMARY... NO ACUTE NEGATIVE CHANGES NOTED THIS SHIFT. THE PT DENIES ANY SI THIS SHIFT. THE PT HAS BEEN HYPERTENSIVE WITH SBPs IN THE 160'S-180'S, PROVIDER WAS NOTIFIED AND NEW ORDERS TO RESTART THE PT'S HOME DOSE OF METOPROLOL WAS OBTAINED AND THIS WAS GIVEN. THE PT HAS DENIED ANY CHEST PAIN/PRESSURE N/V OR SOB AND HAS BEEN ON RA SINCE ADMIT. THE PT HAS NOT SHOWN ANY S/SX OF ETOH W/D. THE PT HAS BEEN USING THE URINAL INDEPENDENTLY. THE PT SAT UP IN THE CHAIR FOR LUNCH, DURING THE TRANSFER THE PT'S HR INCREASED FROM THE LOW 100'S TO THE 120'S WITH ACTIVITY BUT ONCE THE PT SAT DOWN THIS IMPROVED BACK TO THE LOW 100'S. THE PT HAS HAD A 1:1 SITTER T/O THIS SHIFT. CALL LIGHT IN REACH WILL CONTINUE TO MONITOR UNTIL REPORT IS GIVEN TO ONCOMING RN.
--- NOTE | 2021-07-31 18:15 | NUR ---
PATIENT ARRIVED TO UNIT. TRANSFERRED FROM W/C TO BED SBA. APPEARS TO BE IN A DECENT MOOD THIS EVENING. PATIENT STATES "I AM SAD, BUT I FEEL BETTER. I TOOK ALL MY MEDS. MY MIND JUST RACES AND I GET ANXIOUS BUT I AM OKAY." BP SLIGHTLY HYPERTENSIVE BUT TRENDING DOWN. DRINKING WATER AND WATCHING TV CURRENTLY. WILL REPORT TO ONCOMING RN.
--- NOTE | 2021-08-01 05:33 | NUR ---
PT IS A&OX4, INDEPENDENT IN ROOM WITH 1:1 SITTER FOR SAFETY AND IS ABLE TO VOICE CONCERNS. RECEIVES IV ATIVAN FOR ANXIETY. DENIES AVH. COMPLIANT WITH ALL MEDICATION. CALM COOPERATVE AFFECT. RESTS BETWEEN CARES, SLEEPS 6+ HOURS THIS SHIFT. CURRENTLY DENIES SI, DESHAWN HI. STATES REMORSE FOR ACTIONS. [place] POISON CONTROL FOLLOWING. WILL CONTINUE MONITOR AND GIVE REPORT TO ONCOMING RN.
--- NOTE | 2021-08-01 16:54 | NUR ---
SHIFT SUMMARY PT REMAINS UNDER 1:1 SUPERVISION R/T SUICIDE ATTEMPT. PT HAS DENIED SUICIDAL IDEATION THIS SHIFT. HE DOES REPORT FEELING SAD, AND IS HAVING SOME ANXIETY. ATIVAN GIVEN FOR ANXIETY. HE STATES HE WOULD LIKE TO GO TO AN INPATIENT FACILITY IN [place] INSTEAD OF DISCHARGING HOME. PT FILLED OUT A SAFETY PLAN TODAY, IT WAS PLACED ON PT'S CHART. PT HAS BEEN PLEASANT, COOPERATIVE AND APPROPRIATE T/O THE SHIFT. TELE MONITOR IN PLACE, PT IS BRADYCARDIC, QT INTERVAL WNL. WILL MONITOR UNTIL REPORT TO NOC RN.
--- NOTE | 2021-08-01 21:45 | NUR ---
POISON CONTROL POISON CONTROL UPDATED ON PT STATUS. RECOMMENDATION TO CONTINUE MONITORING.
--- NOTE | 2021-08-02 04:08 | NUR ---
SHIFT SUMMARY PT CONTINUES TO DENY SUICIDAL IDEATIONS. HE HAS BEEN VERY PLEASANT AND COOPERATIVE. HE REPORTS FEELINGS OF ANXIETY AND HAVING NIGHTMARES. IV ATIVAN Q4P FOR ANXIETY. PT ALSO HAVING MILD ETOH WITHDRAWALS, BUT CIWAS ARE STABLE. IVF INFUSING PER ORDERS. TELE IN PLACE AND REMAINS STABLE. CALL LIGHT WITHIN REACH. PT CONTINUES TO BE MONITORED BY [place]ERA + 1:1 SITTER.
--- NOTE | 2021-08-02 11:41 | NUR ---
NOON BLOOD GLUCOSE 105.
--- NOTE | 2021-08-02 13:28 | NUR ---
Patient immediately tells me how resolved he is to move to [place] and get a start fresh, how this time it will be different and how being around family in [place] will give him the support he needs. He then tells me about the thoughts that led to his latest OD. We talk about his perspectives and his plans and the relationship complications that surround him. Pt still displays evidence of not taking optometrist/practice owner ship of his actions and not being willing to do the inner work to live healthier. I listen empathically, provide gentle tariff counsel, theological insights and prayer. Patient responds well and shows signs of cathersis. I will continue to remain available to pt and family.
--- NOTE | 2021-08-02 17:30 | NUR ---
PT NOTIFIED STAFF THAT WINNIE (PEER SUPPORT) FROM THE CRISIS TEAM WOULD BE UNABLE TO PICK HIM UP AND TAKE HIM HOME. PT ALSO NOTIFIED STAFF THAT HE ATTEMPTED TO CONTACT A [facility] FOR A RIDE HOME, DOMENICO MOTA REFERRED THE PATIENT TO [facility] TRANSPORT. THIS RN CONTACTED [facility], THEY REPORTED THEY COULD NOT LOCATE THE PATIENT IN THEIR SYSTEM SO TRANSPORT COULD NOT BE SCHEDULED. ATTEMPTED TO CONTACT [facility] AND THEY WERE ALSO UNABLE TO SCHEDULE TRANSPORT HOME. GALLO ZARATE NOTIFIED OF TRANSPORT ISSUES, AND A [facility] RIDE [facility] WITH DOMENICO MOTA WAS ARRANGED PAID BY THE HOSPITAL.
--- NOTE | 2021-08-02 18:44 | NUR ---
WINNIE (PEER SUPPORT) UNABLE TO TAKE PT HOME. GALLO ZARATE NOTIFIED. CONTACTED DR. CHANG, AND KONRAD JOHNSON. [facility] CONTACTED AND LEFT MESSAGE WITH NAH[employer] FOR [facility]AP[facility] CONTAINER COORDINATOR TO CONTACT THE HOSPITAL WHEN THEY ARE AVALIABLE TO REACH OUT AND CHECK ON THE PATIENT. DR. CHANG NOTIFIED OF THIS PLAN AND VERBALIZED OK FOR PT TO CONTINUE WITH DISCHARGE HOME LONG HE WAS COMFORTABLE GOING HOME. DR. CHANG ALSO NOTIFIED THAT THE ADAPT CONTAINER COORDINATOR MAY NOT BE ABLE TO REACH OUT TO THE PATIENT TONIGHT BUT [facility] WILL SHOULD MAKE CONTACT WITH HIM TOMORROW PER KONRAD JOHNSON. PT CONFIRMED HE FELT COMFORTABLE DISCHARGING HOME DESPITE WINNIE (PEER SUPPORT) BEING UNABLE TO PICK HIM UP AND TAKE HIME HOME. PT REPORTED HE WAS WILLING TO WALK HOME. [facility] WAS ARRANED HOME FOR SAFETY.
--- NOTE | 2021-08-02 19:00 | NUR ---
DISCHARGE PT WAS PROVIDED WITH WRITTEN AND VERBAL DISCHARGE INSTRUCTIONS; PT REPORTED UNDERSTANDING INSTRUCTIONS. RESOURCES PROVIDED FOR PT. PT EDUCATED THAT [facility] SHOULD REACH OUT TO HIM TOMORROW AND HE WILL FOLLOW UP WITH PROVIDER REGARDING MEDICATIONS ON SUNDAY. PRESCRIPTIONS FAXED TO [facility] PER PT REQUEST. AT TIME OF DISCHARGE PT REPORTED FEELING SAFE REGARDING DISCHARGE PLAN. HE AGREED TO REACH OUT TO WINNIE ([facility]ER SUPPORT) FOR FURTHER RESOURCES AND SUPPORT. PT IN GOOD SPIRITS AT TIME OF DISCHARGE. [facility] 1820 BY [facility] CR.
--- NOTE | 2021-08-02 19:06 | NUR ---
CRISIS SUPPORT REN FROM [employer] [facility] CONTACTED THIS RN REGARDING AT HOME FOLLOW-UP WITH THIS PATIENT. SHE WAS NOTIFIED THAT DISCHARGE PLAN CHANGED WHEN WINNIE (PEER SUPPORT) WAS UNABLE TO TAKE PT HOME PREVIOUSLY ARRANGED. SHE WAS NOTIFIED THAT PT HAD BEEN TAKEN HOME BY [employer]. REN REPORTED SHE HAD CONTACT INFORMATION FOR [facility]IE IF SHE WAS UNABLE TO REACH THE PATIENT. SHE ALSO REPORTED SHE COULD DO A WELFARE CHECK SINCE WINNIE WAS UNABLE TO TAKE THE PT HOME. PRIOR TO DISCHARGE PT VERBALIZED OK FOR THIS RN TO SHARE INFORMATION WITH CRISIS MASTER POLICE DETECTIVE AND THAT IT WOULD BE OK TO ASK THEM TO CHECK ON HIM TONIGHT.
--- NOTE | 2021-08-02 19:13 | NUR ---
IV REMOVAL SITES ASSESSED PRIOR TO DISCHARGE AND THEY WERE WNL.
== END 2021-08-02 18:20 | disposition home or self-care (01) | DRG 917 ==
LOC: ER 23:07 → ICUE 07-31 01:10 → SURS 07-31 01:10 → ERHOLD 07-31 01:10 → ICUE 07-31 03:29 → SURS 07-31 17:54
PROVIDERS: Emergency Medicine; Internal Medicine; ADMIT Family Medicine
PROC: HZ2ZZZZ Detoxification Services for Substance Abuse Treatment (ICD-10-PCS; principal; 2021-07-31)
DX: T51.0X2A Toxic effect of ethanol, intentional self-harm, initial encounter (principal); G92.8 Other toxic encephalopathy; K74.60 Unspecified cirrhosis of liver; Z78.1 Physical restraint status; B19.20 Unspecified viral hepatitis C without hepatic coma; F32.A Depression, unspecified; I10 Essential (primary) hypertension; T43.212A Poisoning by selective serotonin and norepinephrine reuptake inhibitors, intentional self-harm, initial encounter; F10.129 Alcohol abuse with intoxication, unspecified; T43.591A Poisoning by other antipsychotics and neuroleptics, accidental (unintentional), initial encounter; D72.828 Other elevated white blood cell count; T43.211A Poisoning by selective serotonin and norepinephrine reuptake inhibitors, accidental (unintentional), initial encounter; E11.9 Type 2 diabetes mellitus without complications; T43.592A Poisoning by other antipsychotics and neuroleptics, intentional self-harm, initial encounter; F90.9 Attention-deficit hyperactivity disorder, unspecified type; E87.6 Hypokalemia; F41.9 Anxiety disorder, unspecified; Z98.890 Other specified postprocedural states; Z79.899 Other long term (current) drug therapy; X58.XXXA Exposure to other specified factors, initial encounter
CPT/HCPCS: 36415; 80048; 80053; 82947; 83735; 84132; 85025; 93005; 93010; 96365; 96366; 99285-25; A9270; G0480; J1650; J1815; J2060; J3475; J3480; J7030

== ENCOUNTER 2021-08-03 01:22 | Emergency (ER) | payer MEDICARE, OTHER ==
[~2021-08-03] VITALS: Ht 190.5 cm; Wt 163.3 kg
== END 2021-08-03 06:06 | disposition home or self-care (01) ==
LOC: ER 01:22
DX: F10.129 Alcohol abuse with intoxication, unspecified (principal); Z87.891 Personal history of nicotine dependence
CPT/HCPCS: 99284